=== PATIENT | female | born 1930 | race Caucasian/White ===

== ENCOUNTER → 2016-08-28 | Outpatient (CLI) | payer OTHER ==
[~2016-08-28] MED LIST: AMLO2.5T PO; ASPI81TA28 PO; ATEN-173 PO; CHOL1000 PO; CHOL100010 PO; CLOP1TAB15 PO; CRFUDL PO; DOCU100C PO; DOXY-300 PO; DSWCR TOP; DSWCR15 TOP; DXY50 PO; FERR1TAB13 PO; LEVO125T72 PO; LEVO150T PO; LEVO150T9 PO; LISI5TAB3 PO; MECL12.5 PO; METH500T3 PO; METR0.7536 TOP; METR1GEL3; MIDODRINE PO; MOML PO; MULT-506 PO; NITR0.4S UT; PANT40TA PO; POLY335019 PO; ZNTT/150 PO
--- NOTE | 2016-08-28 12:19 | DIAGNOSTIC IMAGING REPORT ---
RIGHT RIBS UNILATERAL WITH PA CHEST CLINICAL HISTORY: W19.XXXA Fall at [id number] Right trauma. Pain. COMPARISON STUDY: None FINDINGS: Cortical fracture right seventh eighth and ninth rib midaxillary line. All remaining ribs are unremarkable. No evidence pneumothorax. IMPRESSION: Nondisplaced cortical fractures right seventh eighth and ninth ribs. No evidence pneumothorax. Electronically signed by: Freddy Sherman M.D. 08/28/2016 12:17 PM Dictated Date/Time: 08/28/2016 12:16 PM
== END | disposition home or self-care (01) ==
LOC: C.RAD1850 11:44
PROVIDERS: ATTEND Physician Assistant
DX: S22.41XA Multiple fractures of ribs, right side, initial encounter for closed fracture (principal); W19.XXXA Unspecified fall, initial encounter

== ENCOUNTER 2016-08-31 13:45 | Inpatient (IN) | payer OTHER ==
[~2016-08-31] VITALS: Ht 165.1 cm; Wt 60.3 kg
[~2016-08-31 13:45] MED LIST changes: -CHOL1000 PO; -CRFUDL PO; -DOXY-300 PO; -DSWCR TOP; -FERR1TAB13 PO; -LEVO125T72 PO; -LEVO150T9 PO; -METR0.7536 TOP; -MIDODRINE PO; -MOML PO; -PANT40TA PO; -POLY335019 PO
[2016-08-31] MEDS ORDERED: SODIUM CHLORIDE 0.9% 500ML 500 ML IV STA (14:17)
[2016-08-31 14:40] LABS: BASO % 0.3 %; BASO ABS # 0.04 K/uL (0-0.2); COMPLETE YES; EOS % 1.1 %; HEMATOCRIT 27.1 % (37-47); IG% 0.4 %; LYMPH ABS # 1.41 K/uL (1.2-3.4); MEAN CELL VOLUME 84.2 fL (80-100); MEAN CORPUSCULAR HEMOGLOBIN 29.8 pg (25-34); MEAN CORPUSCULAR HGB CONC 35.4 g/dl (32-36); MEAN PLATELET VOLUME 10.2 fL (7.4-10.4); MONO % 16.7 %; NEUT % 69.5 %; PLATELET COUNT 365 K/uL (130-400); RED BLOOD COUNT 3.22 M/uL (4.2-5.4); WHITE BLOOD COUNT 11.76 K/uL (4.8-10.8)
--- NOTE | 2016-08-31 14:41 | EMERGENCY ROOM VISIT NOTE ---
History Report prepared by [place]: Ekta Webb Under the Supervision of: Dr. Adelfo Fleming M.D. First contact with patient: 14:08 Chief Complaint: GI ASSESSMENT Stated Complaint: TARRY BLACK STOOLS Nursing Triage Summary: Pt reports constipation for several days Pt had BM this morning that was black and tarry Pt c/o nausea Pt is on ASA and plavix History of Present Illness The patient is an 86 year old female who presents to the Emergency Room with complaints of persistent weakness that started six days ago. She currently rates her discomfort as an 8/10 in severity. The patient states that she fell in her bathroom six days ago from an episode of syncope. The patient does not remember losing consciousness, but her son claims she had. She went to her PCP on and they completed a chest x ray that revealed three broken ribs. Since then, the patient has fallen multiple times in the kitchen. She denies hitting her head in any falls. She states that she is on Aspirin and Plavix. The patient's son states that the patient has been taking Ibuprofen twice a day the past week. Today, the patient noted black tarry stools for the first time. She denies any history of GI bleeds in the past. The patient additionally associates shortness of breath and nausea with her symptoms today. Source of History: patient, family Onset: six days ago Position: other (global) Symptom Intensity: 8/10 Quality: other (weakness) Timing: other (persistent) Associated Symptoms: + LOC, + SOB, + nausea Note: Associated symptoms include black, tarry stools. Review of Systems See HPI for pertinent positives & negatives. A total of 10 systems reviewed and were otherwise negative. Past Medical & Surgical Medical Problems: (1) Acid reflux (2) Anemia (3) Coronary artery disease (4) Gastrointestinal bleed (5) HTN (hypertension) (6) Hypothyroidism (7) Myocardial infarction (8) Vertigo Surgical Problems: (1) Hx of CABG Family History Cancer Heart disease Social History Smoking Status: Never Smoker Alcohol Use: none Marital Status: Housing Status: lives alone Occupation Status: retired Current/Historical Medications Scheduled Aspirin (Aspirin Ec), 81 MG PO DAILY Atenolol (Tenormin), 12.5 MG PO BID Cholecalciferol (Vitamin D3), 1 TAB PO DAILY Clopidogrel (Plavix), 75 MG PO DAILY Desonide 0.05% (Desowen 0.05%), 1 APPLN TOP BID Doxycycline (Monohydrate) (Doxycycline), 1 CAP PO DAILY Levothyroxine Sodium (Synthroid), 125 MCG PO DAILY Metronidazole (Topical) (Metronidazole), 1 APPLN TOP DAILY Multivitamin (Multivitamin), 1 TAB PO DAILY Nitroglycerin (Nitrostat), 0.4 MG UT PRN Ranitidine (Zantac), 150 MG PO BID Scheduled PRN Docusate Sodium (Stool Softener), 100 MG PO BID PRN for Constipation Allergies Coded Allergies: Morphine (Verified Allergy, Mild, Itching, 08/31/16) and erythema at site of injection Penicillins (Verified Allergy, Unknown, 08/31/16) Atorvastatin (Verified Adverse Reaction, Unknown, 08/31/16) Ezetimibe (Verified Adverse Reaction, Unknown, 08/31/16) Physical Exam Vital Signs Date Time Temp Pulse Resp B/P Pulse Ox O2 Delivery O2 Flow Rate FiO2 08/31/16 16:10 75 08/31/16 15:41 73 22 162/68 98 Room Air 08/31/16 15:05 97 Room Air 08/31/16 13:48 36.9 72 20 131/66 97 Room Air Physical Exam GENERAL: Patient is a healthy-appearing well-nourished HEAD: Normocephalic atraumatic EYES: Ocular movements intact pupils equal and react to light OROPHARYNX mucous membranes are moist no exudates present no erythema or edema present NECK: Supple no nuchal rigidity CHEST: Good equal expansion LUNGS: Clear and equal to auscultation CARDIAC: Normal S1 and S2 ABDOMEN: Soft nontender no guarding BACK: No CVA tenderness RECTAL: Melena, Heme positive EXTREMITIES: No pain upon palpation normal muscle strength in all groups no clubbing cyanosis or edema NEURO: Patient is following commands is answering questions appropriately. Alert and oriented x3 Cranial Nerves 2-12 grossly intact Medical Decision & Procedures ER Provider Diagnostic Interpretation: Radiology results as stated below per my review and radiologist interpretation: CT ANGIOGRAM OF THE CHEST CLINICAL HISTORY: Atypical chest pain COMPARISON STUDY: Chest CT scan performed December 2005 TECHNIQUE: Following the IV administration of 84 mL of Optiray-320, CT angiogram of the thorax was performed from the thoracic inlet to the lung bases utilizing the pulmonary embolus protocol. Images are reviewed in the axial, sagittal, and coronal planes. IV contrast was administered without complication. MIP imaging was performed. CT DOSE: 268.93 mGy.cm FINDINGS: No pathologically enlarged axillary mediastinal or hilar lymph nodes were visualized. There was no evidence of thoracic aortic dilatation. There are coronary artery calcifications. There is a hiatal hernia with esophageal wall thickening. There were no pulmonary artery filling defects to indicate acute pulmonary embolism. There is a right pleural effusion. There are right lower lobe compressive atelectatic changes. IMPRESSION: 1. No CT evidence of acute pulmonary embolism 2. Coronary artery calcifications 3. Small right pleural effusion 4. Hiatal hernia with esophageal wall thickening Electronically signed by: Clay Rivas M.D. 08/31/2016 3:40 PM Dictated Date/Time: 08/31/2016 3:[address] HEAD WITHOUT CONTRAST (CT) CLINICAL HISTORY: Head trauma. Head pain. COMPARISON STUDY: 08/22/2014 TECHNIQUE: Axial CT of the brain is performed from the vertex to the skull base. IV contrast was not administered for this examination. CT DOSE: 614.27 mGy.cm FINDINGS: No intra or extra-axial mass lesions are visualized. There is no CT evidence of acute cortical infarction. There is no evidence of midline shift. There is no acute hemorrhage. No calvarial fractures are visualized. There are patchy white matter hypodensities likely on a small vessel basis. 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 Hypodensities within the basal ganglia inferiorly, likely represent dilated perivascular spaces although a lacunar infarct could appear similar. There is also an old lacunar infarct within the left caudate and right lentiform nucleus. There is no evidence of pathologic ventricular dilatation. There is no evidence of acute sinusitis IMPRESSION: No acute intracranial findings Electronically signed by: Clay Rivas M.D. 08/31/2016 3:36 PM Dictated Date/Time: 08/31/2016 3:33 PM Laboratory Results 08/31/16 14:29 Test 08/31/16 14:29 08/31/16 15:02 Bedside Hemoglobin 9.5 g/dl (12.0-16.0) Bedside Hematocrit 28 % (37-47) Prothrombin Time 10.9 SECONDS (9.0-12.0) Prothromb Time International Ratio 1.0 (0.9-1.1) Activated Partial Thromboplast Time 24.5 SECONDS (21.0-31.0) Partial Thromboplastin Ratio 0.9 Bedside Sodium 128 mEq/L (135-144) Bedside Potassium 5.0 mEq/L (3.3-5.0) Bedside Chloride 93 mEq/L (101-112) Bedside Total CO2 25 mEq/l (24-31) Anion Gap 16.0 mmol/L (16-25) Bedside Blood Urea Nitrogen 27 mg/dl (7-18) Bedside Creatinine 1.0 mg/dl (0.6-1.3) Est Creatinine Clear Calc Drug Dose 30.8 ml/min Estimated GFR () 47.7 Estimated GFR (Non- 41.2 BUN/Creatinine Ratio 20.1 (10-20) Bedside Glucose (other) 109 mg/dl (70-99) Calcium Level 9.0 mg/dl (8.5-10.1) Bedside Ionized Calcium (Heldaio) 1.20 mmol/l (1.12-1.32) Total Bilirubin 0.4 mg/dl (0.2-1) Direct Bilirubin < 0.1 mg/dl (0-0.2) Aspartate Amino Transf (AST/SGOT) 16 U/L (15-37) Alanine Aminotransferase (ALT/SGPT) 18 U/L (12-78) Alkaline Phosphatase 93 U/L (45-117) Total Protein 6.7 gm/dl (6.4-8.2) Albumin 2.9 gm/dl (3.4-5.0) Lipase 150 U/L (73-393) Urine Color YELLOW Urine Appearance CLEAR (CLEAR) Urine pH 7.0 (4.5-7.5) Urine Specific Malin 1.018 (1.000-1.030) Urine Protein NEG (NEG) Urine Glucose (UA) NEG (NEG) Urine Ketones NEG (NEG) Urine Occult Blood NEG (NEG) Urine Nitrite NEG (NEG) Urine Bilirubin NEG (NEG) Urine Urobilinogen NEG (NEG) Urine Leukocyte Esterase MODERATE (NEG) Urine WBC (Auto) 5-10 /hpf (0-5) Urine RBC (Auto) 0-4 /hpf (0-4) Urine Hyaline Casts (Auto) 1-5 /lpf (0-5) Urine Epithelial Cells (Auto) 20-30 /lpf (0-5) Urine Bacteria (Auto) NEG (NEG) Labs reviewed by ED physician. Medications Administered Medications (Trade) Dose Ordered Sig/[place] Route Start Time Stop Time Status Last Admin Dose Admin Sodium Chloride (Nss 500ml) 500 ml @ 999 mls/hr Q31M STAT IV 08/31/16 14:17 08/31/16 14:47 DC 08/31/16 15:20 999 MLS/HR Pantoprazole Sodium 1 ea 1 ea NOW STAT IV 08/31/16 14:44 08/31/16 14:47 DC 08/31/16 15:58 1 EA Pantoprazole Sodium 80 mg/ Dextrose 120 ml @ 480 mls/hr TODAY@1500 ONCE IV 08/31/16 15:00 08/31/16 15:14 DC 08/31/16 15:35 480 MLS/HR Pantoprazole Sodium/Dextrose (Protonix Inj/D5 100ml) 100 ml @ 20 mls/hr Q5H IV 08/31/16 15:14 09/30/16 15:13 08/31/16 20:19 20 MLS/HR Morphine Sulfate (MoRPHine SULFATE INJ) 4 mg NOW STAT IV 08/31/16 16:06 08/31/16 16:07 DC 08/31/16 16:22 4 MG Ondansetron HCl (Zofran Inj) 4 mg NOW STAT IV 08/31/16 16:06 08/31/16 16:07 DC 08/31/16 16:20 4 MG Diphenhydramine HCl 25 mg 25 mg NOW STAT IV 08/31/16 16:30 08/31/16 16:31 DC 08/31/16 16:33 25 MG Dextrose/Sodium Chloride (D5W And Nss) 1,000 ml @ 75 mls/hr [id number] IV 08/31/16 17:30 09/30/16 17:29 08/31/16 19:53 75 MLS/HR ECG Indication: weakness Rate (beats per minute): 65 Rhythm: normal sinus Findings: no acute ischemic change, no ectopy ED Course 1410: Past medical records reviewed. The patient was evaluated in room B12. A complete history and physical examination was performed. 1417: Ordered NSS 500 ml @ 999 mls/hr IV 1444: Ordered Protonix 1 ea IV 1445: Ordered Ioversol 125 ml IV-PRN 1500: Ordered Pantoprazole Sodium 80 mg/ Dextrose 120ml @ 480 mls/hr IV 1514: Ordered Pantoprazole Sodium 40 mg/ Dextrose 100 ml @ 20 mls/hr IV 1602: I reassessed the patient and she is resting comfortably. I discussed the exam findings with her and her family and I discussed the treatment plan. They verbalized complete understanding and agreement. The patient will be evaluated for further treatment. 1606: Ordered Zofran Inj 4 mg IV, Morphine Sulfate 4 mg IV. 1623: I discussed the patient's case with DARBY Pierre. She is going to evaluate the patient for further treatment. 1630: Ordered Benadryl Inj 25 mg IV. Medical Decision Differential diagnosis: Etiologies such as diverticulosis, AVM, coagulopathy, colitis, inflammatory bowel disease, malignancy, Lalitha-Nuñez tear, esophagitis, peptic ulcer disease , variceal bleed, gastritis, epistaxis, fissure, hemorrhoids, as well as others were entertained. This is an 86-year-old female who presents emergency department complaining of generalized weakness along with multiple falls at home. The patient has had black and tarry stool. She is heme positive on physical examination. Her hemoglobin has dropped from 14-9. She was typed and screen. She was started on Protonix bolus and drip. I did discuss case with the hospitalist service who agreed to admit the patient. Patient was in agreement with treatment plan. Consults Time Called: 1601 Consulting Physician: DARBY Pierre Returned Call: 1623 I discussed the patient's case with DARBY Pierre. She is going to evaluate the patient for further treatment. Impression Primary Impression: GI bleed Additional Impression: Anemia Scribe Attestation The scribe's documentation has been prepared under my direction and personally reviewed by me in its entirety. I confirm that the note above accurately reflects all work, treatment, procedures, and medical decision making performed by me. Departure Information Dispostion Being Evaluated By Hospitalist Referrals Kamlesh Mcduffie M.D. (PCP) Patient Instructions My [facility] Problem Qualifiers Primary Impression: GI bleed GI bleed type/associated pathology: unspecified gastrointestinal hemorrhage type Qualified Codes: K92.2 - Gastrointestinal hemorrhage, unspecified Additional Impression: Anemia Anemia type: unspecified type Qualified Codes: D64.9 - Anemia, unspecified
[2016-08-31 14:42] LABS: ISTAT HEMOGLOBIN 9.5 g/dl (12.0-16.0); ISTAT IONIZED CALCIUM 1.2 mmol/l (1.12-1.32)
[2016-08-31] MEDS ORDERED: OPTIRAY 320 IV PRN (14:45)
[2016-08-31] MEDS ORDERED: LEVO125T72 PO (14:50)
[2016-08-31] MEDS ORDERED: DOXY-300 PO (14:50)
[2016-08-31] MEDS ORDERED: DSWCR TOP (14:50)
[2016-08-31] MEDS ORDERED: CHOL1000 PO (14:50)
[2016-08-31] MEDS ORDERED: METR0.7536 TOP (14:50)
[2016-08-31 14:53] LABS: PARTIAL THROMBOPLASTIN RATIO 0.9; PROTHROMBIN TIME (PATIENT) 10.9 SECONDS (9.0-12.0)
[2016-08-31 14:57] LABS: ALT/SGPT 18 U/L (12-78); AST/SGOT 16 U/L (15-37); BLOOD UREA NITROGEN 24 mg/dl (7-18); BUN/CREATININE RATIO 20.1 (10-20); CARBON DIOXIDE 27 mmol/L (21-32); CHLORIDE 97 mmol/L (98-107); GLUCOSE 109 mg/dl (70-99); POTASSIUM 4.7 mmol/L (3.5-5.1); SODIUM 132 mmol/L (136-145)
[2016-08-31 14:59] LABS: ALKALINE PHOSPHATASE 93 U/L (45-117)
[2016-08-31] MEDS ORDERED: PANTOprazole INJ 80 MG in DEXTROSE 5% 100ML IV ONE (15:00)
[2016-08-31 15:14] LABS: MANUAL MICROSCOPIC REQUIRED? NO; REVIEW REQ? NO; URINE APPEARANCE CLEAR (CLEAR); URINE BILIRUBIN NEG (NEG); URINE COLOR YELLOW; URINE EPITHELIAL CELL AUTO 20-30 /lpf (0-5); URINE NITRITE NEG (NEG); URINE SPECIFIC GRAVITY 1.018 (1.000-1.030); UROBILINOGEN NEG (NEG)
--- NOTE | 2016-08-31 15:37 | DIAGNOSTIC IMAGING REPORT ---
CT HEAD WITHOUT CONTRAST (CT) CLINICAL HISTORY: Head trauma. Head pain. COMPARISON STUDY: 08/22/2014 TECHNIQUE: Axial CT of the brain is performed from the vertex to the skull base. IV contrast was not administered for this examination. CT DOSE: 614.27 mGy.cm FINDINGS: No intra or extra-axial mass lesions are visualized. There is no CT evidence of acute cortical infarction. There is no evidence of midline shift. There is no acute hemorrhage. No calvarial fractures are visualized. There are patchy white matter hypodensities likely on a small vessel basis. 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 Hypodensities within the basal ganglia inferiorly, likely represent dilated perivascular spaces although a lacunar infarct could appear similar. There is also an old lacunar infarct within the left caudate and right lentiform nucleus. There is no evidence of pathologic ventricular dilatation. There is no evidence of acute sinusitis IMPRESSION: No acute intracranial findings Electronically signed by: Clay Rivas M.D. 08/31/2016 3:36 PM Dictated Date/Time: 08/31/2016 3:33 PM
--- NOTE | 2016-08-31 15:41 | DIAGNOSTIC IMAGING REPORT ---
CT ANGIOGRAM OF THE CHEST CLINICAL HISTORY: Atypical chest pain COMPARISON STUDY: Chest CT scan performed December 2005 TECHNIQUE: Following the IV administration of 84 mL of Optiray-320, CT angiogram of the thorax was performed from the thoracic inlet to the lung bases utilizing the pulmonary embolus protocol. Images are reviewed in the axial, sagittal, and coronal planes. IV contrast was administered without complication. MIP imaging was performed. CT DOSE: 268.93 mGy.cm FINDINGS: No pathologically enlarged axillary mediastinal or hilar lymph nodes were visualized. There was no evidence of thoracic aortic dilatation. There are coronary artery calcifications. There is a hiatal hernia with esophageal wall thickening. There were no pulmonary artery filling defects to indicate acute pulmonary embolism. There is a right pleural effusion. There are right lower lobe compressive atelectatic changes. IMPRESSION: 1. No CT evidence of acute pulmonary embolism 2. Coronary artery calcifications 3. Small right pleural effusion 4. Hiatal hernia with esophageal wall thickening Electronically signed by: Clay Rivas M.D. 08/31/2016 3:40 PM Dictated Date/Time: 08/31/2016 3:36 PM
[2016-08-31] MEDS: PANTOprazole INJ 40 MG in DEXTROSE 5% 100ML IV SCH ×2 (15:57→20:19)
[2016-08-31] MEDS ORDERED: ONDANSETRON INJ 2 MG/ML 2 ML VIAL IV STA (16:06)
[2016-08-31] MEDS ORDERED: MoRPHine SULFATE 4 MG/ML 1 ML CARP\\VIAL IV STA (16:06)
[2016-08-31] MEDS ORDERED: DiphenhydrAMINE HCL 50 MG/ML VIAL IV STA (16:30)
[2016-08-31] MEDS ORDERED: NITROGLYCERIN 0.4 MG SL PER TAB CHARGE UT SCH (17:45)
[2016-08-31 18:41] LABS: BASO % 0.4 %; BASO ABS # 0.04 K/uL (0-0.2); COMPLETE YES; EOS % 2.5 %; HEMATOCRIT 26.1 % (37-47); IG% 0.5 %; LYMPH % 19.6 %; LYMPH ABS # 1.96 K/uL (1.2-3.4); MEAN CELL VOLUME 84.2 fL (80-100); MEAN CORPUSCULAR HEMOGLOBIN 29.4 pg (25-34); MEAN CORPUSCULAR HGB CONC 34.9 g/dl (32-36); MEAN PLATELET VOLUME 9.8 fL (7.4-10.4); PLATELET COUNT 309 K/uL (130-400)
[2016-08-31 19:00] VITALS: BP 187/72; PULSE 68; TEMP 37.2; O2SAT 96; Ht 165.1 cm; Wt 60.3 kg
[2016-08-31] MEDS: D5W AND NSS 1,000 ML IV SCH (19:53)
[2016-08-31] MEDS: DESONIDE CR 15 GM TUBE EXT SCH (19:54)
[2016-08-31] MEDS ORDERED: HYDROmorphone INJ 0.5 MG/0.5 ML SYR IV PRN (20:30)
--- NOTE | 2016-08-31 21:00 | History and Physical ---
History & Physical Date & Time of Service: Aug 31, 2016 at 20:11 Chief Complaint: Anemia,Gastrointestinal Bleed Primary Care Physician: Kamlesh Mcduffie M.D. History of Present Illness Source: patient, family This patient is a lauren 86-year-old female with a history of CAD status post 2 vessel CABG in 1999 followed by 2 stents to the right coronary artery in 2010, carotid artery stenosis, hypothyroidism, hypertension, paroxysmal A. 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 She reports 5 days ago, she was brushing her teeth and blacked out and woke up on the floor of her bathroom. She injured her ribs at that time and was having pain, but did not come to the hospital. She put herself into bed. Since that time, she has felt persistently nauseated and had one episode of nonbloody emesis, and persistent lightheadedness. No heart palpitations or chest pains. She went to see her PCP 2 days later and had a chest x-ray which showed fractured ribs on the right side at the site of her pain. She was advised to take ibuprofen at that time for her pain. She did not have a bowel movement all last week and has a history of constipation. Then , this morning showed a large black stool that was concerning to her and she came to the ER. She was grossly heme positive with melena on rectal exam as per ER physician. Her hemoglobin was found to be 9.6 down from baseline of 14 6 months ago. Her vital signs were stable. Because of the fall, she had a CT of the head showed old lacunar infarcts but nothing acute. And because of the right-sided rib pain , she had a CT angiogram of the chest which was negative for pulmonary embolism , but did show a small right pleural effusion with right lower lobe atelectatic changes, and esophageal thickening. Of note, the radiology report did not mention rib fractures, but the rib series from 3 days prior didn't show this. Past Medical/Surgical History Past Medical History: GERD Coronary artery disease status post 2 vessel CABG in 1999 followed by 2 stents to the right coronary artery in 2010 HTN (hypertension) Hypothyroidism Carotid artery stenosis status post right carotid endarterectomy Paroxysmal A. fib History of CVA without residual deficits Chronic constipation Rosacea History of diverticulitis Past Surgical Problems: Hx of CABG Partial colectomy with colostomy and reversal of colostomy Lumbar decompression and fusion Cataracts Total thyroidectomy Right carotid endarterectomy Family History Cancer Heart disease Noncontributory Social History Smoking Status: Never Smoker Alcohol Use: none Drug Use: none Marital Status: Housing status: lives alone Occupational Status: retired Immunizations History of Influenza Vaccine: Yes History of Tetanus Vaccine?: Yes History of Pneumococcal: Yes History of Hepatitis B Vaccine: No Multi-Drug Resistant Organisms History of MDRO: No Allergies Coded Allergies: Penicillins (Verified Allergy, Unknown, 08/31/16) Atorvastatin (Verified Adverse Reaction, Unknown, 08/31/16) Ezetimibe (Verified Adverse Reaction, Unknown, 08/31/16) Home Medications Scheduled Aspirin (Aspirin Ec), 81 MG PO DAILY Atenolol (Tenormin), 12.5 MG PO BID Cholecalciferol (Vitamin D3), 1 TAB PO DAILY Clopidogrel (Plavix), 75 MG PO DAILY Desonide 0.05% (Desowen 0.05%), 1 APPLN TOP BID Doxycycline (Monohydrate) (Doxycycline), 1 CAP PO DAILY Levothyroxine Sodium (Synthroid), 125 MCG PO DAILY Metronidazole (Topical) (Metronidazole), 1 APPLN TOP DAILY Multivitamin (Multivitamin), 1 TAB PO DAILY Nitroglycerin (Nitrostat), 0.4 MG UT PRN Ranitidine (Zantac), 150 MG PO BID Scheduled PRN Docusate Sodium (Stool Softener), 100 MG PO BID PRN for Constipation Review of Systems Constitutional: No chills, No fever Eyes: No problem reported ENT: + hearing loss, No trouble swallowing Respiratory: No cough, No shortness of breath, No sputum Cardiovascular: + chest pain (right sided at the site of rib fractures) Abdomen: + GI bleeding, + nausea, + vomiting, No pain Musculoskeletal: No problem reported Genitourinary - Female: No problem reported Neurologic: No problem reported Psychiatric: No problem reported Endocrine: No problem reported Hematologic / Lymphatic: No problem reported Integumentary: No problem reported Allergic / Immunologic: No problem reported Physical Exam Vital Signs Date Time Temp Pulse Resp B/P Pulse Ox O2 Delivery O2 Flow Rate FiO2 08/31/16 19:00 37.2 68 20 187/72 96 Room Air 08/31/16 18:20 70 21 145/72 95 Room Air 08/31/16 16:10 75 08/31/16 15:41 73 22 162/68 98 Room Air 08/31/16 15:05 97 Room Air 08/31/16 13:48 36.9 72 20 131/66 97 Room Air General Appearance: WD/WN, no apparent distress Head: normocephalic, atraumatic Eyes: normal inspection, EOMI, sclerae normal ENT: pharynx normal Neck: trachea midline Respiratory/Chest: lungs clear, normal breath sounds (except slightly decreased at the right base), no respiratory distress, no accessory muscle use Cardiovascular: regular rate, rhythm, no edema, no gallop, no murmur, normal peripheral pulses, + pertinent finding (positive exquisite tenderness to palpation over the right anterior inferior rib cage) Abdomen/GI: normal bowel sounds, non tender, soft, no organomegaly, no pulsatile mass Back: normal inspection Extremities/Musculoskelatal: normal inspection, no calf tenderness, no pedal edema, normal range of motion Neurologic/Psych: alert, normal mood/affect, oriented x 3 Skin: normal color, warm/dry, no rash Diagnostics Laboratory Results Results Past 24 Hours Test 08/31/16 14:29 08/31/16 15:02 08/31/16 18:34 Range/Units White Blood Count 11.76 10.00 4.8-10.8 K/uL Red Blood Count 3.22 3.10 4.2-5.4 M/uL Hemoglobin 9.6 9.1 12.0-16.0 g/dL Hematocrit 27.1 26.1 37-47 % Mean Corpuscular Volume 84.2 84.2 80-100 fL Mean Corpuscular Hemoglobin 29.8 29.4 25-34 pg Mean Corpuscular Hemoglobin Concent 35.4 34.9 32-36 g/dl Platelet Count 365 309 130-400 K/uL Mean Platelet Volume 10.2 9.8 7.4-10.4 fL Neutrophils (%) (Auto) 69.5 61.0 % Lymphocytes (%) (Auto) 12.0 19.6 % Monocytes (%) (Auto) 16.7 16.0 % Eosinophils (%) (Auto) 1.1 2.5 % Basophils (%) (Auto) 0.3 0.4 % Neutrophils # (Auto) 8.17 6.10 1.4-6.5 K/uL Lymphocytes # (Auto) 1.41 1.96 1.2-3.4 K/uL Monocytes # (Auto) 1.96 1.60 0.11-0.59 K/uL Eosinophils # (Auto) 0.13 0.25 0-0.5 K/uL Basophils # (Auto) 0.04 0.04 0-0.2 K/uL Bedside Hemoglobin 9.5 12.0-16.0 g/dl Bedside Hematocrit 28 37-47 % RDW Standard Deviation 46.7 47.0 36.4-46.3 fL RDW Coefficient of Variation 15.1 15.2 11.5-14.5 % Immature Granulocyte % (Auto) 0.4 0.5 % Immature Granulocyte # (Auto) 0.05 0.05 0.00-0.02 K/uL Prothrombin Time 10.9 9.0-12.0 SECONDS Prothromb Time International Ratio 1.0 0.9-1.1 Activated Partial Thromboplast Time 24.5 21.0-31.0 SECONDS Partial Thromboplastin Ratio 0.9 Bedside Sodium 128 135-144 mEq/L Sodium Level 132 136-145 mmol/L Bedside Potassium 5.0 3.3-5.0 mEq/L Potassium Level 4.7 3.5-5.1 mmol/L Bedside Chloride 93 101-112 mEq/L Chloride Level 97 98-107 mmol/L Carbon Dioxide Level 27 21-32 mmol/L Bedside Total CO2 25 24-31 mEq/l Anion Gap 16.0 16-25 mmol/L Bedside Blood Urea Nitrogen 27 7-18 mg/dl Blood Urea Nitrogen 24 7-18 mg/dl Creatinine 1.20 0.60-1.20 mg/dl Bedside Creatinine 1.0 0.6-1.3 mg/dl Est Creatinine Clear Calc Drug Dose 30.8 ml/min Estimated GFR () 47.7 Estimated GFR (Non- 41.2 BUN/Creatinine Ratio 20.1 10-20 Bedside Glucose (other) 109 70-99 mg/dl Random Glucose 109 70-99 mg/dl Calcium Level 9.0 8.5-10.1 mg/dl Bedside Ionized Calcium (Heladio) 1.20 1.12-1.32 mmol/l Total Bilirubin 0.4 0.2-1 mg/dl Direct Bilirubin < 0.1 0-0.2 mg/dl Aspartate Amino Transf (AST/SGOT) 16 15-37 U/L Alanine Aminotransferase (ALT/SGPT) 18 12-78 U/L Alkaline Phosphatase 93 45-117 U/L Total Protein 6.7 6.4-8.2 gm/dl Albumin 2.9 3.4-5.0 gm/dl Lipase 150 73-393 U/L Urine Color YELLOW Urine Appearance CLEAR CLEAR Urine pH 7.0 4.5-7.5 Urine Specific [place] 1.018 1.000-1.030 Urine Protein NEG NEG Urine Glucose (UA) NEG NEG Urine Ketones NEG NEG Urine Occult Blood NEG NEG Urine Nitrite NEG NEG Urine Bilirubin NEG NEG Urine Urobilinogen NEG NEG Urine Leukocyte Esterase MODERATE NEG Urine WBC (Auto) 5-10 0-5 /hpf Urine RBC (Auto) 0-4 0-4 /hpf Urine Hyaline Casts (Auto) 1-5 0-5 /lpf Urine Epithelial Cells (Auto) 20-30 0-5 /lpf Urine Bacteria (Auto) NEG NEG Diagnostic Radiology CT angiogram of the chest-negative for PE, positive for small right pleural effusion, positive for hiatal hernia with esophageal thickening CT of the head-old lacunar infarcts, no acute changes Normal EKG Impression Assessment and Plan This patient is a lauren 86-year-old female with a history of CAD status post 2 vessel CABG in 1999 followed by 2 stents to the right coronary artery in 2011, carotid artery stenosis, hypothyroidism, hypertension, paroxysmal A. 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 She reports an episode of syncope 5 days ago which resulted in right-sided rib fractures. Since that time, she has felt persistently nauseated and had one episode of nonbloody emesis, and persistent lightheadedness. She was grossly heme positive with melena on rectal exam as per ER physician. Her hemoglobin was found to be 9.6 down from baseline of 14 6 months ago. She had a CT angiogram of the chest which was negative for pulmonary embolism, but did show a small right pleural effusion with right lower lobe atelectatic changes, and esophageal thickening. Acute blood loss anemia, GI bleeding, history of GERD, esophageal thickening on CT chest-most likely upper GI bleed from esophagitis versus PUD versus malignancy given thickening on CT and long-standing GERD. Hemodynamically stable at this time. 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 Syncope most likely secondary to acute blood loss anemia and occurred 5 days prior to admission. ECG normal. Troponin not done at time of admission. Last echo 2012 showed mild aortic insufficiency and mild MR -Monitor on telemetry for arrhythmia -Holding aspirin and Plavix for now, we'll need to restart aspirin when safe to do so from GI perspective -Continue home dose of atenolol with hold parameters in case of low BP in the setting of GI bleeding -Check troponin -Check echo to reassess for valvular disease Right-sided fractured ribs, small pleural effusion-in pain with atelectasis and CT. Morphine in the ER made her itchy and red on the arm. -Tylenol when necessary pain, will try Dilaudid for severe pain as morphine caused a reaction -Incentive spirometer will be provided Hypothyroidism-TSH normal 3 months ago -Continue home dose of levothyroxine DVT prophylaxis-SCDs only given GI bleeding Disposition-from home and normally independent DO NOT RESUSCITATE/DO NOT INTUBATE as per discussion with patient upon admission. She has a copy of the living will at her house. Level of Care Telemetry Advanced Directives Existing Advance Directive: Yes Existing Living Will: Yes Existing Power of Tree Doctor: Yes Resuscitation Status DO NOT RESUSCITATE VTE Prophylaxis VTE Risk Assessment Done? Y/N: Yes Risk Level: Low Additional Copies To Kamlesh Mcduffie M.D.
--- NOTE | 2016-08-31 22:13 | GASTROINTESTINAL CONSULTATION ---
DATE OF CONSULTATION: 08/31/2016 REASON FOR EVALUATION: Melena and anemia. HISTORY OF PRESENT ILLNESS: The patient is an 86-year-old female, who fell six days ago and fractured 3 ribs on the right. She has been on aspirin and Plavix following coronary artery bypass graft in the past and since she broke her rib she has been taking ibuprofen and presented today with a syncopal episode. In the ER, she was noted to have melenic stool which was Hemoccult positive and she was slightly anemic with a hemoglobin in the 9 range. She has had no significant abdominal pain, no nausea or vomiting. No prior history of ulcer disease. She was taking Zantac at home. PAST MEDICAL HISTORY: Remarkable for coronary artery disease status post bypass. She has had partial bowel resection for bowel perforation in the past. She has hypertension, hypothyroidism and history of vertigo. MEDICATIONS: Baby aspirin, Plavix, atenolol, vitamin D, doxycycline, Synthroid, metronidazole, multiple vitamins, Nitrostat and Zantac. ALLERGIES: PENICILLIN, ATORVASTATIN AND EZETIMIBE. FAMILY HISTORY: Positive for cancer and heart disease. SOCIAL HISTORY: The patient is , lives alone. She has a son in the area. She is retired. She does not smoke. REVIEW OF SYSTEMS: Positive for some right rib pain. PHYSICAL EXAMINATION: GENERAL: The patient is lying in bed, in no acute distress. VITAL SIGNS: Blood pressure is 162/68, pulse 73 and room air oxygen saturation is 98%. LUNGS: Clear. HEART: Showed a sternotomy scar with normal S1 and S2, regular rate and rhythm. ABDOMEN: Showed a low midline scar. There are no masses, tenderness or hepatosplenomegaly. RECTAL: Exam performed by the ER doctor showed melena which was heme-positive. LABORATORY: Shows hemoglobin of 9.6, hematocrit 27, white count is 11.76 and platelets 365,000. CT of the head is negative. CT of the chest shows small right pleural effusion, coronary artery calcification and hiatal hernia. IMPRESSION: The patient has melena and anemia; on aspirin, Plavix and ibuprofen. She likely has gastritis or an ulcer. At this point, I would hold the aspirin, ibuprofen and keep her on IV Protonix. We will set her up for an EGD tomorrow for further evaluation.
[2016-09-01] VITALS (8 sets, daily range): BP systolic 124–193; BP diastolic 56–78; PULSE 61–68; TEMP 36.4–37; O2SAT 92–96
[2016-09-01 00:07] LABS: HEMATOCRIT 29.1 % (37-47); MEAN CELL VOLUME 87.4 fL (80-100); MEAN CORPUSCULAR HEMOGLOBIN 29.4 pg (25-34); MEAN CORPUSCULAR HGB CONC 33.7 g/dl (32-36); MEAN PLATELET VOLUME 10.1 fL (7.4-10.4); PLATELET COUNT 341 K/uL (130-400); RED BLOOD COUNT 3.33 M/uL (4.2-5.4); WHITE BLOOD COUNT 9.73 K/uL (4.8-10.8)
[2016-09-01] MEDS ORDERED: HydrALAZINE HCL 20 MG/ML VIAL IV. PRN (00:45)
[2016-09-01] MEDS: PANTOprazole INJ 40 MG in DEXTROSE 5% 100ML IV SCH ×5 (01:06→21:51)
[2016-09-01] MEDS: ACETAMINOPHEN 325 MG TAB PO PRN ×3 (01:33→20:28)
[2016-09-01 04:03] LABS: HEMATOCRIT 27.3 % (37-47); MEAN CORPUSCULAR HEMOGLOBIN 29.6 pg (25-34); MEAN CORPUSCULAR HGB CONC 34.8 g/dl (32-36); MEAN PLATELET VOLUME 10.1 fL (7.4-10.4); PLATELET COUNT 335 K/uL (130-400); RED BLOOD COUNT 3.21 M/uL (4.2-5.4)
[2016-09-01 04:29] LABS: BUN/CREATININE RATIO 14.1 (10-20); CALCIUM 8.5 mg/dl (8.5-10.1); CREATININE 0.99 mg/dl (0.60-1.20); MAGNESIUM 2.2 mg/dl (1.8-2.4); POTASSIUM 4.2 mmol/L (3.5-5.1)
[2016-09-01] MEDS: LEVOTHYROXINE 125 MCG TAB PO SCH (05:49)
[2016-09-01] MEDS: D5W AND NSS 1,000 ML IV SCH (05:51)
[2016-09-01 08:56] LABS: HEMATOCRIT 30.8 % (37-47); MEAN CELL VOLUME 86.5 fL (80-100); MEAN CORPUSCULAR HEMOGLOBIN 29.2 pg (25-34); MEAN CORPUSCULAR HGB CONC 33.8 g/dl (32-36); MEAN PLATELET VOLUME 10.5 fL (7.4-10.4); PLATELET COUNT 361 K/uL (130-400); RED BLOOD COUNT 3.56 M/uL (4.2-5.4); WHITE BLOOD COUNT 12.69 K/uL (4.8-10.8)
[2016-09-01] MEDS: DESONIDE CR 15 GM TUBE EXT SCH ×2 (09:23→20:27)
--- NOTE | 2016-09-01 11:22 | ECHOCARDIOGRAM REPORT ---
*NOTICE TO RECEIVING LIBERTARIAN AGENCY This information is strictly Confidential and protected under [place] law. [place] law prohibits you from making any further disclosure of this information unless further disclosure is expressly permitted by the written consent of the person to whom it pertains or is authorized by law. A general authorization for the release of medical or other information is not sufficient for this purpose. Hospital accepts no responsibility if the information is made available to any other person, INCLUDING THE PATIENT. Interpretation Summary * Name: JESSICA HAZEL Study Date: 09/01/2016 06:46 AM BP: 185/64 mmHg * Patient Location: C.2T\S\S239\S\1 HR: 60 * : 1930 (M/d/yyy) Gender: Female Height: 65 in * Age: 86 yrs Ethnicity: CA Weight: 129 lb * Ordering Physician: Za Dutton * Referring Physician: Self, Referred * Performed By: Pete Melgar RCS * * Reason For Study: Syncope * BSA: 1.6 m2 * -- Conclusions -- * Left ventricular systolic function is normal. * No regional wall motion abnormalities noted. * Ejection Fraction = 65-70%. * There is borderline concentric left ventricular hypertrophy. * Diastolic dysfunction, Grade II (pseudonormalization pattern). * There is mild mitral regurgitation. * There is mild tricuspid regurgitation. * Mild pulmonic valvular regurgitation. Procedure Details * A complete two-dimensional transthoracic echocardiogram was performed (2D, M-mode, Doppler and color flow Doppler). Left Ventricle * The left ventricle is normal in size. * There is borderline concentric left ventricular hypertrophy. * Ejection Fraction = 65-70%. * Left ventricular systolic function is normal. * No regional wall motion abnormalities noted. Right Ventricle * The right ventricle is normal size. * The right ventricular systolic function is normal as assessed by tricuspid annular plane systolic excursion (TAPSE) (normal >1.5 cm). Atria * The left atrium is mildly dilated. * The right atrium is mildly dilated. * There is no evidence of atrial septal defect, but resolution does not allow assessment for a patent foramen ovale. Mitral Valve * The mitral valve anatomy is normal. * There is no mitral valve stenosis. * There is mild mitral regurgitation. Tricuspid Valve * The tricuspid valve anatomy is normal. * There is no tricuspid stenosis. * There is mild tricuspid regurgitation. Aortic Valve * The aortic valve is trileaflet. * Aortic valve sclerosis moderate, without significant aortic valvular stenosis. * Trace aortic regurgitation. Pulmonic Valve * The pulmonary valve is not well seen, but the Doppler examination is normal without significant regurgitation or stenosis. * Mild pulmonic valvular regurgitation. Great Vessels * The aortic root is normal size. Pericardium/Pleural * There is no pericardial effusion. Left Ventricular Diastolic Function * Diastolic dysfunction, Grade II (pseudonormalization pattern). MMode 2D Measurements and Calculations IVSd 0.98 cm IVSs 1.3 cm LVIDd 4.4 cm LVIDs 2.9 cm LVPWd 10 cm LVPWs 1.3 cm IVS/LVPW 0.98 FS 34.3 % EDV(Teich) 88.6 ml ESV(Teich) 32.3 ml EF(Teich) 63.6 % EDV(cubed) 86.3 ml ESV(cubed) 24.4 ml EF(cubed) 71.7 % % IVS thick 35.7 % % LVPW thick 29.2 % LV mass(C)d 146.3 grams LV mass(C)dI 89.1 grams/m\S\2 LV mass(C)s 120.1 grams LV mass(C)sI 73.1 grams/m\S\2 CO(Teich) 3.4 l/min CI(Teich) 2.1 l/min/m\S\2 SV(Teich) 56.3 ml SI(Teich) 34.3 ml/m\S\2 CO(cubed) 3.7 l/min CI(cubed) 2.3 l/min/m\S\2 SV(cubed) 61.8 ml SI(cubed) 37.7 ml/m\S\2 Ao root diam 3.2 cm Ao root area 7.9 cm\S\2 ACS 1.6 cm LA dimension 4.9 cm LA/Ao 1.5 LVAd ap4 28.0 cm\S\2 LVLd ap4 7.9 cm EDV(MOD-sp4) 81.0 ml LVAs ap4 13.6 cm\S\2 LVLs ap4 6.8 cm ESV(MOD-sp4) 23.0 ml EF(MOD-sp4) 71.6 % LVAd ap2 27.7 cm\S\2 LVLd ap2 7.7 cm EDV(MOD-sp2) 82.0 ml LVAs ap2 12.4 cm\S\2 LVLs ap2 6.6 cm ESV(MOD-sp2) 20.0 ml EF(MOD-sp2) 75.6 % CO(MOD-sp4) 3.5 l/min CI(MOD-sp4) 2.1 l/min/m\S\2 SV(MOD-sp4) 58.0 ml SI(MOD-sp4) 35.3 ml/m\S\2 CO(MOD-sp2) 3.7 l/min CI(MOD-sp2) 2.3 l/min/m\S\2 SV(MOD-sp2) 62.0 ml SI(MOD-sp2) 37.8 ml/m\S\2 Doppler Measurements and Calculations MV E max darin 83.3 cm/sec MV A max darin 74.4 cm/sec MV E/A 1.1 MV P1/2t max darin 97.7 cm/sec MV P1/2t 84.7 msec MVA(P1/2t) 2.6 cm\S\2 MV dec slope 338.1 cm/sec\S\2 MV dec time 0.26 sec Ao V2 max 129.6 cm/sec Ao max PG 6.7 mmHg Ao max PG (full) 2.8 mmHg AI max darin 394.4 cm/sec AI max PG 62.2 mmHg AI dec slope 254.1 cm/sec\S\2 AI P1/2t 454.6 msec LV V1 max PG 3.9 mmHg LV V1 max 99.2 cm/sec PA V2 max 82.0 cm/sec PA max PG 2.7 mmHg PI max darin 213.4 cm/sec PI max PG 18.2 mmHg PI dec slope 184.9 cm/sec\S\2 PI P1/2t 338.0 msec TR max darin 220.4 cm/sec
[2016-09-01 12:50] LABS: MEAN CELL VOLUME 85.1 fL (80-100); MEAN CORPUSCULAR HEMOGLOBIN 29.5 pg (25-34); MEAN CORPUSCULAR HGB CONC 34.6 g/dl (32-36); MEAN PLATELET VOLUME 10.2 fL (7.4-10.4); PLATELET COUNT 344 K/uL (130-400); RED BLOOD COUNT 3.29 M/uL (4.2-5.4); WHITE BLOOD COUNT 11.28 K/uL (4.8-10.8)
--- NOTE | 2016-09-01 14:24 | Endo History and Physical ---
History & Physical Date of Service: Sep 01, 2016. Chief Complaint: Melena Referring Physician: Dr Mcduffie History of Present Illness For EGD Past Surgical History Hx Cardiac Surgery: Yes (CABG) Hx Abdominal Surgery: No Hx Post-Op Nausea and Vomiting: No Hx Cancer Surgery: No Hx Thoracic Surgery: No Hx Orthopedic: Yes (spinal fusion) Hx Urinary Tract Surgery: No Social History Smoking Status: Never Smoker Hx Substance Use: No Hx Alcohol Use: No Allergies Coded Allergies: Morphine (Verified Allergy, Mild, Itching, 08/31/16) and erythema at site of injection Penicillins (Verified Allergy, Unknown, 08/31/16) Atorvastatin (Verified Adverse Reaction, Unknown, 08/31/16) Ezetimibe (Verified Adverse Reaction, Unknown, 08/31/16) Current Medications Reported Home Medications Medications Dose Route/Sig Max Daily Dose Days Date Category Metronidazole (Metronidazole (Topical)) 1 % Gel 1 Appln TOP DAILY 08/31/16 Reported Desowen 0.05% (Desonide) 60 Gm Cr 1 Appln TOP BID 14 08/31/16 Reported Doxycycline (Doxycycline (Monohydrate)) 100 Mg Cap 1 Cap PO DAILY 08/31/16 Reported Vitamin D3 (Cholecalciferol) 1,000 Unit Tab 1 Tab PO DAILY 30 08/31/16 Reported Synthroid (Levothyroxine Sodium) 125 Mcg Tab 125 Mcg PO DAILY 08/31/16 Reported Tenormin (Atenolol) 25 Mg Tab 12.5 Mg PO BID 06/03/13 Reported Zantac (Ranitidine HCl) 150 Mg Tab 150 Mg PO BID 04/29/13 Reported Stool Softener (Docusate Sodium) 100 Mg Cap 100 Mg PO BID PRN 04/29/13 Reported Nitrostat (Nitroglycerin) 0.4 Mg Sub 0.4 Mg UT PRN 04/29/13 Reported Aspirin Ec (Aspirin) 81 Mg Tab 81 Mg PO DAILY 04/29/13 Reported Multivitamin (Multivitamins) Tab 1 Tab PO DAILY 08/21/08 Reported Plavix (Clopidogrel Bisulfate) 75 Mg Tab 75 Mg PO DAILY 08/21/08 Reported Vital Signs Weight (Kilograms): 60.200 Height (Feet): 5 Height (Inches): 5.00 Date Time Temp Pulse Resp B/P Pulse Ox O2 Delivery O2 Flow Rate FiO2 09/01/16 13:28 36.6 63 20 151/61 95 Room Air 09/01/16 12:00 Room Air 09/01/16 11:52 36.4 62 16 153/64 95 Room Air 09/01/16 08:00 Room Air 09/01/16 07:48 36.4 61 18 124/64 96 Room Air 09/01/16 04:02 37.0 68 18 185/64 94 09/01/16 04:00 Room Air 09/01/16 00:11 36.5 65 22 191/73 94 193/78 08/31/16 23:59 Room Air 08/31/16 20:00 Room Air 08/31/16 19:00 37.2 68 20 187/72 96 Room Air 08/31/16 18:20 70 21 145/72 95 Room Air 08/31/16 16:10 75 08/31/16 15:41 73 22 162/68 98 Room Air 08/31/16 15:05 97 Room Air Physical Exam General Appearance: + thin Respiratory/Chest: Respiratory effort: no dyspnea Cardiovascular: Heart Auscultation: RRR Abdomen: Inspection & Palpation: soft Assessment and Plan Melena for EGD
--- NOTE | 2016-09-01 14:40 | Discharge Instructions ---
Endoscopy Patient Instructions Date / Procedure(s) Performed Sep 01, 2016. EGD Allergy Information Coded Allergies: Morphine (Verified Allergy, Mild, Itching, 08/31/16) and erythema at site of injection Penicillins (Verified Allergy, Unknown, 08/31/16) Atorvastatin (Verified Adverse Reaction, Unknown, 08/31/16) Ezetimibe (Verified Adverse Reaction, Unknown, 08/31/16) Discharge Date / Findings Sep 01, 2016. Esophagitis, Hiatal hernia Medication Instructions Restart Stopped Medication(s): resume meds Begin carafate susp 1 gm po bid Provider Instructions Activity Restrictions - No exercising or heavy lifting for 24 hours. - Do not drink alcohol the day of the procedure. - Do not drive a car or operate machinery until the day after the procedure. - Do not make any important decisions or sign important papers in 24 hours after the procedure. Following Day: - Return to full activity which may include returning to work/school. Diet Start your diet with liquids and light foods (jello, soup, juice, toast). Then eat your usual diet if not nauseated. Treatment For Common After Affects For mild abdominal pain, bloating, or excessive gas: - Rest - Eat lightly - Lie on right side Follow-Up Information Follow-up with as scheduled Anesthesia Information What You Should Know You have had a procedure that required some medicine to reduce anxiety and discomfort. This treatment is called moderate sedation. After receiving the treatment, you may be sleepy, but you will be able to breathe on your own. The effects of the treatment may last for several hours. Follow these instructions along with Activity/Diet recommendations noted above: * Do NOT do anything where dizziness or clumsiness would be dangerous. * Rest quietly at home today, then you can be up and about tomorrow. * Have a responsible person stay with you the rest of today. * You may have had an I.V. today. If so, you may take the dressing off later today. Recommendations Call your doctor if: * Trouble breathing * Continuous vomiting for more than 24 hours * Temperature above 101 degrees * Severe abdominal pain or bloating * Pain not relieved by pain medicine ordered * There is increased drainage or redness from any incision * A large amount of rectal bleeding greater than 2-3 tablespoons. (If you had a polyp/s removed or have hemorrhoids, a small amount of blood - from the rectum is to be expected.) * You have any unanswered questions or concerns. IN THE EVENT OF A SERIOUS EMERGENCY, GO TO THE NEAREST EMERGENCY ROOM Your discharge instructions were prepared by provider José Treadwell. Patient Instructions Signature Page Kay Celestin Patient (or Guardian) Signature/Date: I have read and understand the instructions given to me by my caregivers. Caregiver/RN/Doctor Signature/Date: The above-named patient and/or guardian has received patient instructions on this date. + Original Patient Signature Page (only) stays with chart. Please make copy for patient.
--- NOTE | 2016-09-01 14:43 | GI REPORT ---
Procedure Date: 09/01/2016 2:14 PM Procedure: Upper GI endoscopy Indications: Acute post hemorrhagic anemia, Melena Medicines: Propofol total dose 80 mg IV, Lidocaine 80 mg IV Complications: No immediate complications. Estimated Blood Loss: Estimated blood loss: none. Procedure: Pre-Anesthesia Assessment: - Prior to the procedure, a History and Physical was performed, and patient medications, allergies and sensitivities were reviewed. The patient's tolerance of previous anesthesia was reviewed. - The risks and benefits of the procedure and the sedation options and risks were discussed with the patient. All questions were answered and informed consent was obtained. After obtaining informed consent, the endoscope was passed under direct vision. Throughout the procedure, the patient's blood pressure, pulse, and oxygen saturations were monitored continuously. The scope was introduced through the mouth, and advanced to the second part of duodenum. The upper GI endoscopy was accomplished without difficulty. The patient tolerated the procedure well. Findings: LA Grade D (one or more mucosal breaks involving at least 75% of esophageal circumference) esophagitis with no bleeding was found. A medium-sized hiatus hernia was present. The entire examined stomach was normal. The examined duodenum was normal. Impression: - LA Grade D reflux esophagitis. - Medium-sized hiatus hernia. - Normal stomach. - Normal examined duodenum. - No specimens collected. Recommendation: - [facility]. - Use sucralfate suspension 1 gram PO BID daily. José Treadwell M.D. José Treadwell MD 09/01/2016 2:44:09 PM This report has been signed electronically. Note Initiated On: 09/01/2016 2:14 PM I attest to the content of the Intraoperative Record and orders documented therein, exceptions below
[2016-09-01] MEDS ORDERED: PROPOFOL IV EMULSION 10 MG/ML 20 ML VIAL IV ONE (14:56)
[2016-09-01] MEDS ORDERED: LIDOCAINE HCL 2% 2 ML VIAL (20MG/ML) ONE (14:56)
--- NOTE | 2016-09-01 14:58 | Anesthesiology Progress Note ---
Anesthesia Post Op Note Date & Time Sep 01, 2016 at 14:58 Vital Signs Pain Intensity: 0.0 Vital Signs Past 12 Hours Date Time Temp Pulse Resp B/P Pulse Ox O2 Delivery O2 Flow Rate FiO2 09/01/16 14:45 68 16 151/61 100 Mask 3 09/01/16 13:28 36.6 63 20 151/61 95 Room Air 09/01/16 12:00 Room Air 09/01/16 11:52 36.4 62 16 153/64 95 Room Air 09/01/16 08:00 Room Air 09/01/16 07:48 36.4 61 18 124/64 96 Room Air 09/01/16 04:02 37.0 68 18 185/64 94 09/01/16 04:00 Room Air Notes Mental Status: alert / awake / arousable, participated in evaluation Pt Amnestic to Procedure: Yes Nausea / Vomiting: adequately controlled Pain: adequately controlled Airway Patency, RR, SpO2: stable & adequate BP & HR: stable & adequate Hydration State: stable & adequate Anesthetic Complications: no major complications apparent Pt doing well.
--- NOTE | 2016-09-01 15:05 | PROGRESS NOTE ---
DATE: 09/01/2016 SUBJECTIVE: The patient underwent an EGD today and was found to have severe distal esophagitis with a small to medium sized hiatal hernia. The stomach and duodenum were normal. There was no stigmata of bleeding. LABORATORY DATA: Shows a white count 11.28; hemoglobin 9.7, which is stable; platelets are 344,000. She reports no bowel movements today. IMPRESSION AND PLAN: The patient has severe esophagitis as a most likely cause for her melena. This is no doubt initiated by her aspirin and ibuprofen and potentiated by her Plavix. Plan on adding to her Protonix, Carafate suspension 1 gram twice a day. We will start her on a solid food, low fiber diet today.
[2016-09-01] MEDS: SUCRALFATE 1 GM/10 ML UDC PO SCH (17:01)
[2016-09-02] MEDS: D5W AND NSS 1,000 ML IV SCH (02:23)
[2016-09-02] MEDS: PANTOprazole INJ 40 MG in DEXTROSE 5% 100ML IV SCH ×3 (02:23→13:11)
[2016-09-02] MEDS: ACETAMINOPHEN 325 MG TAB PO PRN ×3 (03:15→14:13)
[2016-09-02 03:25] VITALS: BP 167/64; PULSE 60; TEMP 37; O2SAT 93
[2016-09-02] MEDS: SUCRALFATE 1 GM/10 ML UDC PO SCH (05:58)
[2016-09-02] MEDS: LEVOTHYROXINE 125 MCG TAB PO SCH (05:58)
[2016-09-02] MEDS: DESONIDE CR 15 GM TUBE EXT SCH (07:54)
[2016-09-02 08:15] VITALS: BP 161/66; PULSE 55; TEMP 36.5; O2SAT 93
[2016-09-02 11:48] VITALS: BP 139/64; PULSE 62; TEMP 36.8; O2SAT 95
[2016-09-02] MEDS ORDERED: CRFUDL PO (14:21)
[2016-09-02 14:23] VITALS: BP 139/64; PULSE 62; TEMP 36.8; O2SAT 95
--- NOTE | 2016-09-02 14:26 | Discharge Instructions ---
Discharge Instructions Date of Service Sep 02, 2016. Admission Reason for Admission: Anemia,Gastrointestinal Bleed Discharge Discharge Diagnosis / Problem: esophagitis Discharge Goals Goal(s): Decrease discomfort, Improve function, Increase independence, Improve disease control, Improve nutritional status, Learn about illness, Diagnostic testing, Therapeutic intervention, Prevent Disease Progression, Specific goals Activity Recommendations Activity Limitations: resume your previous activity . Instructions / Follow-Up Instructions / Follow-Up you have Esophagitis, Hiatal hernia you need to continue Carafate susp 1 gm po bid, Protonix 40mg po daily, follow up with Dr. Treadwell as instructed you have Acute blood loss anemia, GI bleeding, history of GERD, Syncope, CAD s/p CABG and 2 stents to the right coronary artery,ELIZABETH s/p R endarterectomy, I wound Holding aspirin and Plavix for now, we'll need to restart when safe to do so from GI perspective, or from your family physician - you need to follow up with your primary care physician in 1 week, - take medication as instructed, never overdose or any misuse, or take with alcohol, because misuse of medicine may cause organ damage or , call your primary care physician if have questions of medicaitons. - call your primary care physician OR go to local emergency room if has any fever/chill, chest pain, shortness of breathing, nausea/vomiting/abdominal pain , facial droop/slurry speech/local weakness, or if has any questions. - fall precaution - diet as instructed - you need to follow up with your subspecialist - you should understand that it is important to follow up the above instruction , and "not following the above instruction" may cause delayed or missed care of your medical conditions which may cause permanent organ damage and even . Current Hospital Diet Patient's current hospital diet: Low Fiber Diet Discharge Diet Recommended Diet: AHA Diet (Heart Healthy), Low Fiber Diet Procedures Procedures Performed: egd Pending Studies Studies pending at discharge: no Medical Emergencies . Who to Call and When: Medical Emergencies: If at any time you feel your situation is an emergency, please call 911 immediately. . Non-Emergent Contact Non-Emergency issues call your: Primary Care Provider, Stucco Mason . . "Provider Documentation" section prepared by Shawn Walters. VTE Core Measure Inpt VTE Proph given/why not?: SCD's
[2016-09-02] MEDS ORDERED: PANT40TA PO (14:46)
--- NOTE | 2016-09-02 17:00 | Progress Note ---
Subjective Date of Service: Sep 01, 2016. Subjective Pt evaluation today including: conversation w/ patient, conversation w/ family , physical exam, review of studies, conversation w/ business analysis consultant, review of inpatient medication list Feeling okay no complaining, Problem List Medical Problems: (1) Anemia Status: Acute (2) GI bleed Status: Acute Review of Systems Constitutional: + fatigue, + weakness, No chills, No fever, No problem reported , No sweats, No weight loss Eyes: No diplopia, No discharge, No eye pain, No redness, No worsening of vision ENT: No dental problems, No hearing loss, No nasal symptoms, No sore throat, No tinnitus, No trouble swallowing, No unusual epistaxis Respiratory: No cough, No dyspnea at rest, No dyspnea on exertion, No hemoptysis, No shortness of breath, No sputum, No wheezing Cardiac: No PND, No chest pain, No claudication, No edema, No orthopnea, No palpitations Abdomen: No constipation, No diarrhea, No nausea, No pain, No vomiting Musculoskeletal: No calf pain, No joint pain, No muscle pain, No swelling Female : No abnormal vaginal bleeding, No dysuria, No hematuria, No incontinence, No urinary frequency, No vaginal discharge Neurologic: No balance problems, No memory loss, No numbness/tingling, No paralysis, No vertigo, No weakness Psychiatric: No anhedonism, No anxiety, No depression symptoms, No insomnia, No substance abuse Heme: No abnormal bleeding/bruising, No clotting problems, No night sweats, No swollen lymph nodes Endo: No excessive thirst, No excessive urination, No fatigue Skin: No bleeding, No color change, No itch, No new/changing skin lesions, No rash Objective Vital Signs Date Time Temp Pulse Resp B/P Pulse Ox O2 Delivery O2 Flow Rate FiO2 09/02/16 14:23 36.8 62 18 95 Room Air 09/02/16 12:00 Room Air 09/02/16 11:48 36.8 62 18 139/64 95 Room Air 09/02/16 08:15 36.5 55 18 161/66 93 Room Air 09/02/16 08:00 Room Air 09/02/16 04:05 Room Air 09/02/16 03:25 37.0 60 17 167/64 93 Room Air 09/02/16 00:02 Room Air 09/01/16 23:55 36.7 66 17 144/65 92 Room Air 09/01/16 20:12 36.6 62 18 149/56 94 Room Air 09/01/16 20:00 Room Air Physical Exam General Appearance: WD/WN, no apparent distress Eyes: normal inspection, PERRL, EOMI, sclerae normal ENT: normal ENT inspection, hearing grossly normal, pharynx normal Neck: supple, no adenopathy, thyroid normal, no JVD, no carotid bruits, trachea midline Respiratory/Chest: chest non-tender, lungs clear, normal breath sounds, no respiratory distress, no accessory muscle use Cardiovascular: regular rate, rhythm, no edema, no gallop, no JVD, no murmur Abdomen: normal bowel sounds, non tender, soft, no organomegaly, no pulsatile mass Extremities: normal range of motion, non-tender, normal inspection, no pedal edema, no calf tenderness, normal capillary refill, pelvis stable Neurologic/Psychiatric: crossing tender II-XII nml as tested, no motor/sensory deficits, alert, normal mood/affect, oriented x 3 Skin: normal color, warm/dry, no rash Lymphatic: no adenopathy Assessment and Plan 86-year-old female make it on 08/31/2016 with an episode of melena that occurred in the morning of admission Per medical record , she reports an episode of syncope 5 days ago which resulted in right-sided rib fractures. Since that time, she has felt persistently nauseated and had one episode of nonbloody emesis, and persistent lightheadedness. She was grossly heme positive with melena on rectal exam as per ER physician. Her hemoglobin was found to be 9.6 down from baseline of 14 6 months ago. She had a CT angiogram of the chest which was negative for pulmonary embolism, but did show a small right pleural effusion with right lower lobe atelectatic changes, and esophageal thickening. Acute blood loss anemia, GI bleeding, history of GERD, esophageal thickening on CT chest-most likely upper GI bleed from esophagitis versus PUD versus malignancy given thickening on CT and long-standing GERD. -GI consulted plan perform EGD tomorrow -Keep nothing by mouth -Protonix drip -Follow serial CBCs and transfuse for hemoglobin less than 7-8 -Hold Plavix and aspirin indefinitely Syncope, with hx of CAD s/p CABG and 2 stents to the right coronary artery,ELIZABETH s/p R endarterectomy, HTN, PAF, history of CVA without residual deficits-all stable at this time. Syncope most likely secondary to acute blood loss anemia and occurred 5 days prior to admission. Right-sided fractured ribs, small pleural effusion-in pain with atelectasis and CT. Morphine in the ER made her itchy and red on the arm. Continue Tylenol when necessary pain, will try Dilaudid for severe pain as morphine caused a reaction Until new Incentive spirometer will be provided Hypothyroidism-TSH normal 3 months ago -Continue home dose of levothyroxine DVT prophylaxis-SCDs only given GI bleeding DNR Continued [facility] stay due to: multiple IV medications needed Discharge planning: home
--- NOTE | 2016-09-02 17:08 | Discharge Summary ---
Discharge Summary Date of Service Sep 02, 2016. Discharge Summary Admission Date: Aug 31, 2016 at 17:42 Discharge Date: Sep 02, 2016 Discharge Disposition: Home Principal Diagnosis: Esophagitis, Hiatal hernia Immunizations: Have You Had Influenza Vaccine: Yes History of Tetanus Vaccine?: Yes History of Pneumococcal: Yes History of Hepatitis B Vaccine: No Procedures: egd Consultations: GI doctor Dr. Treadwell Medication Reconciliation New Medications: Pantoprazole (Protonix) 40 Mg Tab 40 MG PO DAILY, #30 Sucralfate (Sucralfate) 1 Gm/10 Ml Susp 1 GM PO BID@0700,1615 for 14 Days Continued Medications: Atenolol (Tenormin) 25 Mg Tab 12.5 MG PO BID, TAB Cholecalciferol (Vitamin D3) 1,000 Unit Tab 1 TAB PO DAILY for 30 Days, #30 TAB 5 Refills Desonide 0.05% (Desowen 0.05%) 60 Gm Cr 1 APPLN TOP BID for 14 Days, #60 GM Docusate Sodium (Stool Softener) 100 Mg Cap 100 MG PO BID PRN for Constipation Doxycycline (Monohydrate) (Doxycycline) 100 Mg Cap 1 CAP PO DAILY Levothyroxine Sodium (Synthroid) 125 Mcg Tab 125 MCG PO DAILY, TAB Metronidazole (Topical) (Metronidazole) 1 % Gel 1 APPLN TOP DAILY, #60 Multivitamin (Multivitamin) Tab 1 TAB PO DAILY Nitroglycerin (Nitrostat) 0.4 Mg Sub 0.4 MG UT PRN, BTL Discontinued Medications: Aspirin (Aspirin Ec) 81 Mg Tab 81 MG PO DAILY Clopidogrel (Plavix) 75 Mg Tab 75 MG PO DAILY Ranitidine (Zantac) 150 Mg Tab 150 MG PO BID, TAB Discharge Exam Doing well, tolerate diet, up and walk, no complaint Review of Systems: Constitutional: No chills, No fatigue, No fever, No problem reported, No sweats, No weakness, No weight loss Eyes: No diplopia, No discharge, No eye pain, No problem reported, No redness, No worsening of vision ENT: No dental problems, No hearing loss, No nasal symptoms, No problem reported, No sore throat, No tinnitus, No trouble swallowing, No unusual epistaxis Respiratory: No cough, No dyspnea at rest, No dyspnea on exertion, No hemoptysis, No problem reported, No shortness of breath, No sputum, No wheezing Cardiovascular: No PND, No chest pain, No claudication, No edema, No orthopnea, No palpitations, No problem reported Abdomen: No GI bleeding, No constipation, No diarrhea, No nausea, No pain, No problem reported, No vomiting Genitourinary - Female: No dysmenorrhea, No dysuria, No hematuria, No menorrhagia, No metrorrhagia, No , No problem reported, No rash, No urinary frequency, No urinary incontinence, No urinary retention, No urinary urgency, No vaginal bleeding, No vaginal discharge, No vaginal itching, No vulvodynia Neurologic: No balance problems, No memory loss, No numbness/tingling, No paralysis, No problem reported, No vertigo, No weakness Psychiatric: No anhedonism, No anxiety, No depression symptoms, No insomnia , No problem reported, No substance abuse Endocrine: No excessive thirst, No excessive urination, No fatigue, No problem reported Hematologic / Lymphatic: No abnormal bleeding/bruising, No clotting problems , No night sweats, No problem reported, No swollen lymph nodes Integumentary: No bleeding, No color change, No itch, No new/changing skin lesions, No problem reported, No rash Physical Exam: General Appearance: WD/WN, no apparent distress Eyes: normal inspection, PERRL ENT: normal ENT inspection, hearing grossly normal Neck: supple, no adenopathy Respiratory/Chest: chest non-tender, no respiratory distress, no accessory muscle use, + decreased breath sounds Cardiovascular: regular rate, rhythm, no edema, no gallop, no JVD Abdomen / GI: normal bowel sounds, non tender, soft, no organomegaly, no pulsatile mass Extremities: normal inspection, no calf tenderness, normal capillary refill 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 Since that time, she has felt persistently nauseated and had one episode of nonbloody emesis, and persistent lightheadedness. She was grossly heme positive with melena on rectal exam as per ER physician. Her hemoglobin was found to be 9.6 down from baseline of 14 6 months ago. She had a CT angiogram of the chest which was negative for pulmonary embolism, but did show a small right pleural effusion with right lower lobe atelectatic changes, and esophageal thickening. Acute blood loss anemia, GI bleeding, history of GERD, esophageal thickening on CT chest-most likely upper GI bleed from esophagitis versus PUD versus malignancy given thickening on CT and long-standing GERD. Has been Keep nothing by mouth has been on Protonix drip Hold Plavix and aspirin indefinitely EGd was done on 09/01/2016: report in below: Impression: - LA Grade D reflux esophagitis. - Medium-sized hiatus hernia. - Normal stomach. - Normal examined duodenum. - No specimens collected. Recommendation: - [facility]. - Use sucralfate suspension 1 gram PO BID daily. patient will be discharged home with Protonix by mouth and sucralfate by mouth , after patient discharged patient's pharmacy call me reported sucralfate suspension cause future mono co-pay patient not able to offer ot, I agreed to give Carafate tablet by mouth Syncope, with hx of CAD s/p CABG and 2 stents to the right coronary artery,ELIZABETH s/p R endarterectomy, HTN, PAF, history of CVA without residual deficits-all stable at this time. Syncope most likely secondary to acute blood loss anemia and occurred 5 days prior to admission. Patient has been up and walk no dizziness no difficulty walk, therefore feels so be safe to go home. Right-sided fractured ribs, small pleural effusion-in pain with atelectasis and CT. Morphine in the ER made her itchy and red on the arm. Continue Tylenol when necessary pain, will try Dilaudid for severe pain as morphine caused a reaction Until new Incentive spirometer will be provided Hypothyroidism-TSH normal 3 months ago -Continue home dose of levothyroxine DVT prophylaxis-SCDs only given GI bleeding DNR Instructions / Follow-Up you have Esophagitis, Hiatal hernia you need to continue Carafate susp 1 gm po bid, Protonix 40mg po daily, follow up with Dr. Treadwell as instructed you have Acute blood loss anemia, GI bleeding, history of GERD, Syncope, CAD s/p CABG and 2 stents to the right coronary artery,ELIZABETH s/p R endarterectomy, I wound Holding aspirin and Plavix for now, we'll need to restart when safe to do so from GI perspective, or from your family physician - you need to follow up with your primary care physician in 1 week, - take medication as instructed, never overdose or any misuse, or take with alcohol, because misuse of medicine may cause organ damage or , call your primary care physician if have questions of medicaitons. - call your primary care physician OR go to local emergency room if has any fever/chill, chest pain, shortness of breathing, nausea/vomiting/abdominal pain , facial droop/slurry speech/local weakness, or if has any questions. - fall precaution - diet as instructed - you need to follow up with your subspecialist - you should understand that it is important to follow up the above instruction , and "not following the above instruction" may cause delayed or missed care of your medical conditions which may cause permanent organ damage and even . Total Time Spent: Greater than 30 minutes This includes examination of the patient, discharge planning, medication reconciliation, and communication with other providers. Discharge Instructions Please refer to the electronic Patient Visit Report (Discharge Instructions) for additional information. Additional Copies To José Treadwell M.D.; Kamlesh Mcduffie M.D.
[2016-09-24] MEDS ORDERED: POLY335019 PO (12:31)
[2016-09-25] MEDS ORDERED: MOML PO (10:15)
[2017-03-22] MEDS ORDERED: CRD200 PO (15:39)
[2017-03-22] MEDS ORDERED: LEVO137T3 PO (15:39)
[2017-03-22] MEDS ORDERED: CEPH500C PO (15:39)
== END 2016-09-02 15:30 | disposition home or self-care (01) | DRG 392 ==
LOC: ENRESERVTM → ENRESERVDT → C.EDB 13:47 → C.2T 17:42
PROVIDERS: ADMIT Family Medicine; ATTEND Hospitalist
PROC: 0DJ08ZZ Inspection of Upper Intestinal Tract, Via Natural or Artificial Opening Endoscopic (ICD-10-PCS; principal; 2016-09-01 13:23)
DX: K21.0 Gastro-esophageal reflux disease with esophagitis (principal); S22.41XA Multiple fractures of ribs, right side, initial encounter for closed fracture; D62 Acute posthemorrhagic anemia; J90 Pleural effusion, not elsewhere classified; J98.11 Atelectasis; I25.10 Atherosclerotic heart disease of native coronary artery without angina pectoris; I48.0 Paroxysmal atrial fibrillation; I10 Essential (primary) hypertension; K44.9 Diaphragmatic hernia without obstruction or gangrene; E03.9 Hypothyroidism, unspecified; K59.09 Other constipation; L71.9 Rosacea, unspecified; Z95.1 Presence of aortocoronary bypass graft; Z93.3 Colostomy status; Z66 Do not resuscitate; Z86.73 Personal history of transient ischemic attack (TIA), and cerebral infarction without residual deficits; W19.XXXA Unspecified fall, initial encounter

== ENCOUNTER 2016-09-03 11:52 | Inpatient (IN) | payer OTHER ==
[~2016-09-03] VITALS: Ht 165.1 cm; Wt 58.8 kg
[~2016-09-03 11:52] MED LIST changes: -AMLO2.5T PO; -ASPI81TA28 PO; +CHOL1000 PO; -CHOL100010 PO; -CLOP1TAB15 PO; +CRFUDL PO; +DOXY-300 PO; +DSWCR TOP; -DSWCR15 TOP; -DXY50 PO; +LEVO125T72 PO; -LEVO150T PO; -LISI5TAB3 PO; -MECL12.5 PO; -METH500T3 PO; +METR0.7536 TOP; -METR1GEL3; +PANT40TA PO; -ZNTT/150 PO
[2016-09-03] MEDS ORDERED: SODIUM CHLORIDE 0.9% 1000ML 250 ML IV STA (12:13)
--- NOTE | 2016-09-03 12:52 | DIAGNOSTIC IMAGING REPORT ---
CHEST ONE VIEW PORTABLE CLINICAL HISTORY: EVALUATE RESPIRATORY DISTRESS. DYSPNEA dyspnea COMPARISON STUDY: 08/22/2014 FINDINGS: Mild cardia megaly. Prior median sternotomy. Mild bibasilar interstitial infiltrative change. Mid and upper lungs are considered clear. IMPRESSION: Mild bibasilar interstitial infiltrative change. Mild cardiomegaly. Electronically signed by: Freddy Sherman M.D. 09/03/2016 12:50 PM Dictated Date/Time: 09/03/2016 12:50 PM
[2016-09-03 12:59] LABS: BASO % 0.4 %; BASO ABS # 0.04 K/uL (0-0.2); COMPLETE YES; EOS % 1.4 %; HEMATOCRIT 27.9 % (37-47); IG% 0.3 %; LYMPH % 11.4 %; LYMPH ABS # 1.19 K/uL (1.2-3.4); MEAN CELL VOLUME 84.8 fL (80-100); MEAN CORPUSCULAR HEMOGLOBIN 29.2 pg (25-34); MEAN CORPUSCULAR HGB CONC 34.4 g/dl (32-36); MEAN PLATELET VOLUME 10.2 fL (7.4-10.4); MONO % 9.8 %; NEUT % 76.7 %; PLATELET COUNT 382 K/uL (130-400); RED BLOOD COUNT 3.29 M/uL (4.2-5.4); WHITE BLOOD COUNT 10.45 K/uL (4.8-10.8)
[2016-09-03 13:14] LABS: INR 1.1 (0.9-1.1); PROTHROMBIN TIME (PATIENT) 11.3 SECONDS (9.0-12.0)
[2016-09-03 13:16] LABS: ALT/SGPT 19 U/L (12-78); AST/SGOT 18 U/L (15-37); BLOOD UREA NITROGEN 18 mg/dl (7-18); BUN/CREATININE RATIO 16.3 (10-20); CALCIUM 8.9 mg/dl (8.5-10.1); CARBON DIOXIDE 26 mmol/L (21-32); CHLORIDE 100 mmol/L (98-107); GLUCOSE 81 mg/dl (70-99); POTASSIUM 4.6 mmol/L (3.5-5.1); SODIUM 133 mmol/L (136-145)
[2016-09-03 13:21] LABS: ALB/GLOB RATIO 0.8 (0.9-2); ALKALINE PHOSPHATASE 89 U/L (45-117)
--- NOTE | 2016-09-03 13:23 | EMERGENCY ROOM VISIT NOTE ---
History Report prepared by [place]: Albert Alcantar Under the Supervision of: Dr. Que Chow M.D. First contact with patient: 12:05 Chief Complaint: RESPIRATORY PROBLEMS Stated Complaint: TROUBLE BREATHING, PAIN IN RT RIB/BACK History of Present Illness The patient is a 86 year old female who presents to the Emergency Room with complaints of constant shortness of breath starting this morning. The patient was at baseline yesterday. She also reports a mild cough, weakness, and tiredness. She notes a loss of appetite, but reports a normal fluid intake. She does not wear oxygen at home. The patient's home health nurse referred her to the Emergency Room for low oxygen saturation. She denies any history of COPD or lung disease. This morning, the patient also had dark stools. She also complains of low back pain which worsened after she had a fall last week. She was discharged from [facility] 2 days ago for GI bleeding which was thought to be related to her esophagitis. She did have an endoscopy. She was found to have right sided rib fractures related to the fall last week. She currently denies dizziness, chest pain, abdominal pain, or any other complaints. Source of History: patient Onset: this morning Position: other (global) Quality: other (shortness of breath) Timing: constant Associated Symptoms: + back pain, + cough, + weakness, No abdominal pain, No chest pain Review of Systems See HPI for pertinent positives & negatives. A total of 10 systems reviewed and were otherwise negative. Past Medical & Surgical Medical Problems: (1) Acid reflux (2) Anemia (3) Coronary artery disease (4) Gastrointestinal bleed (5) HTN (hypertension) (6) Hypothyroidism (7) Myocardial infarction (8) Vertigo Surgical Problems: (1) Hx of CABG Family History Cancer Heart disease Social History Smoking Status: Never Smoker Alcohol Use: none Drug Use: none Marital Status: Housing Status: lives alone Occupation Status: retired Current/Historical Medications Scheduled Atenolol (Tenormin), 12.5 MG PO BID Cholecalciferol (Vitamin D3), 1 TAB PO DAILY Desonide 0.05% (Desowen 0.05%), 1 APPLN TOP BID Doxycycline (Monohydrate) (Doxycycline), 1 CAP PO DAILY Levothyroxine Sodium (Synthroid), 125 MCG PO DAILY Metronidazole (Topical) (Metronidazole), 1 APPLN TOP DAILY Multivitamin (Multivitamin), 1 TAB PO DAILY Nitroglycerin (Nitrostat), 0.4 MG UT PRN Pantoprazole (Protonix), 40 MG PO DAILY Sucralfate (Sucralfate), 1 GM PO BID@0700,1615 Scheduled PRN Docusate Sodium (Stool Softener), 100 MG PO BID PRN for Constipation Allergies Coded Allergies: Morphine (Verified Allergy, Mild, Itching, 09/03/16) and erythema at site of injection Penicillins (Verified Allergy, Unknown, 09/03/16) Atorvastatin (Verified Adverse Reaction, Unknown, 09/03/16) Ezetimibe (Verified Adverse Reaction, Unknown, 09/03/16) Physical Exam Vital Signs Date Time Temp Pulse Resp B/P Pulse Ox O2 Delivery O2 Flow Rate FiO2 09/03/16 12:43 97 Room Air 09/03/16 12:39 61 24 155/60 97 Room Air 63 165/65 71 166/86 09/03/16 12:34 62 09/03/16 11:54 36.5 65 18 146/73 98 Room Air Physical Exam GENERAL: Patient is in no acute distress. HEENT: No acute trauma, normocephalic atraumatic, mucous membranes moist, no nasal congestion, no scleral icterus. NECK: No stridor, no adenopathy, no meningismus, trachea is midline. LUNGS: Crackles at both bases. Breath sounds equal, no wheezing HEART: Without murmurs gallops or rubs, regular rate and rhythm. ABDOMEN: Soft, nontender, bowel sounds positive, no hernias, no peritonitis. BACK: Tender diffusely over the lower lumbar spine, no bony step off. EXTREMITIES: No cyanosis or edema, full range of motion of all the joints without pain or difficulty, no signs for acute trauma. NEUROLOGIC: Oriented x 3, no acute motor or sensory deficits, no focal weakness. SKIN: No rash, no jaundice, no diaphoresis. Medical Decision & Procedures ER Provider Diagnostic Interpretation: Orthostatic vital signs are negative. X ray results and stated below per my interpretation and radiologist interpretation. CT results and stated below per my review and radiologist interpretation: CHEST ONE VIEW PORTABLE CLINICAL HISTORY: EVALUATE RESPIRATORY DISTRESS. DYSPNEA dyspnea COMPARISON STUDY: 08/22/2014 FINDINGS: Mild cardia megaly. Prior median sternotomy. Mild bibasilar interstitial infiltrative change. Mid and upper lungs are considered clear. IMPRESSION: Mild bibasilar interstitial infiltrative change. Mild cardiomegaly. Electronically signed by: Freddy Sherman M.D. 09/03/2016 12:50 PM Dictated Date/Time: 09/03/2016 12:[address] LUMBAR SPINE WITHOUT CT DOSE: 703.92 mGy.cm CLINICAL HISTORY: Back pain status post trauma TECHNIQUE: Helical images were acquired in transverse plane. Reformatted sagittal and coronal images were reviewed. CONTRAST: No contrast was administered COMPARISON STUDY: Conventional radiographic study performed July 2008 FINDINGS: There is a right pleural effusion. L1-2 level: There is a circumferential disc bulge present. There is no significant spinal foraminal stenosis L2-3 level: There is a circumferential disc bulge with mild spinal stenosis. There is no significant foraminal narrowing L3-4 level: There is a circumferential disc bulge with moderate spinal stenosis. There is no significant foraminal narrowing L4-5 level: There are postsurgical changes of a discectomy and interbody fusion. Postlaminectomy changes are visualized. There is posterior pedicle screw fusion. No disc herniations are visualized. There is no significant spinal or foraminal stenosis L5-S1 level: There is a minor circumferential disc bulge. There is no significant spinal foraminal stenosis. There is facet joint arthropathy. IMPRESSION: 1. Postsurgical changes at the L4-5 level 2. Multilevel spondylitic changes with spinal stenosis most severe at the L3-4 level 3. No acute fractures or traumatic subluxations are visualized 4. Right pleural effusion Electronically signed by: Clay Rivas M.D. 09/03/2016 1:27 PM Dictated Date/Time: 09/03/2016 1:23 PM Laboratory Results 09/03/16 12:35 Red Blood Count 3.29, Mean Corpuscular Volume 84.8, Mean Corpuscular Hemoglobin 29.2, Mean Corpuscular Hemoglobin Concent 34.4, Mean Platelet Volume 10.2, Neutrophils (%) (Auto) 76.7, Lymphocytes (%) (Auto) 11.4, Monocytes (%) (Auto) 9.8, Eosinophils (%) (Auto) 1.4, Basophils (%) (Auto) 0.4, Neutrophils # (Auto) 8.02, Lymphocytes # (Auto) 1.19, Monocytes # (Auto) 1.02, Eosinophils # (Auto) 0.15, Basophils # (Auto) 0.04 09/03/16 12:35 Test 09/03/16 12:35 White Blood Count 10.45 K/uL (4.8-10.8) Red Blood Count 3.29 M/uL (4.2-5.4) Hemoglobin 9.6 g/dL (12.0-16.0) Hematocrit 27.9 % (37-47) Mean Corpuscular Volume 84.8 fL (80-100) Mean Corpuscular Hemoglobin 29.2 pg (25-34) Mean Corpuscular Hemoglobin Concent 34.4 g/dl (32-36) Platelet Count 382 K/uL (130-400) Mean Platelet Volume 10.2 fL (7.4-10.4) Neutrophils (%) (Auto) 76.7 % Lymphocytes (%) (Auto) 11.4 % Monocytes (%) (Auto) 9.8 % Eosinophils (%) (Auto) 1.4 % Basophils (%) (Auto) 0.4 % Neutrophils # (Auto) 8.02 K/uL (1.4-6.5) Lymphocytes # (Auto) 1.19 K/uL (1.2-3.4) Monocytes # (Auto) 1.02 K/uL (0.11-0.59) Eosinophils # (Auto) 0.15 K/uL (0-0.5) Basophils # (Auto) 0.04 K/uL (0-0.2) RDW Standard Deviation 46.9 fL (36.4-46.3) RDW Coefficient of Variation 15.1 % (11.5-14.5) Immature Granulocyte % (Auto) 0.3 % Immature Granulocyte # (Auto) 0.03 K/uL (0.00-0.02) Prothrombin Time 11.3 SECONDS (9.0-12.0) Prothromb Time International Ratio 1.1 (0.9-1.1) Activated Partial Thromboplast Time 26.6 SECONDS (21.0-31.0) Partial Thromboplastin Ratio 1.0 D-Dimer 1090 ug/L FEU (0-500) Anion Gap 7.0 mmol/L (3-11) Est Creatinine Clear Calc Drug Dose 33.6 ml/min Estimated GFR () 53.0 Estimated GFR (Non- 45.7 BUN/Creatinine Ratio 16.3 (10-20) Calcium Level 8.9 mg/dl (8.5-10.1) Total Bilirubin 0.4 mg/dl (0.2-1) Aspartate Amino Transf (AST/SGOT) 18 U/L (15-37) Alanine Aminotransferase (ALT/SGPT) 19 U/L (12-78) Alkaline Phosphatase 89 U/L (45-117) Troponin I < 0.015 ng/ml (0-0.045) Pro-B-Type Natriuretic Peptide 2243 pg/ml (0-1800) Total Protein 6.4 gm/dl (6.4-8.2) Albumin 2.8 gm/dl (3.4-5.0) Globulin 3.6 gm/dl (2.5-4.0) Albumin/Globulin Ratio 0.8 (0.9-2) Laboratory results reviewed by me. Medications Administered Medications (Trade) Dose Ordered Sig/[place] Route Start Time Stop Time Status Last Admin Dose Admin Sodium Chloride (Nss 1000ml) 250 ml @ 999 mls/hr Q16M STAT IV 09/03/16 12:13 09/03/16 12:28 DC 09/03/16 12:13 999 MLS/HR Furosemide (Lasix Inj) 20 mg NOW STAT IV 09/03/16 14:00 09/03/16 14:02 DC 09/03/16 14:52 20 MG Levofloxacin (Levaquin / D5W) 750 mg NOW STAT IV 09/03/16 14:00 09/03/16 14:02 DC 09/03/16 14:53 750 MG Acetaminophen (Tylenol Tab) 650 mg Q4H PRN PO 09/03/16 14:45 10/03/16 14:44 09/03/16 16:32 650 MG ECG Indication: SOB/dyspnea Rate (beats per minute): 64 Rhythm: normal sinus Findings: no acute ischemic change, no ectopy ED Course 1205: The patient was evaluated in room A12B. A complete history and physical exam was performed. 1213: Sodium Chloride 250 ml @ 999 mls/hr IV 1348: Upon reexamination the patient is resting comfortably. I discussed results and treatment plan with the patient. She verbalizes agreement and understanding. The patient will be evaluated for further management. 1400: Levofloxacin 750 mg IV, Lasix Inj 20 mg IV 1402: I discussed the patient's case with Dr. Velásquez, from [facility]. Medical Decision Differential diagnosis includes but is not limited to GI bleed, anemia, electrolyte imbalance, dehydration, infection, CHF, pneumonia, UTI. There is no leukocytosis. The patient is anemic but her hemoglobin is stable based on her recent testing. No significant electrolyte abnormality or kidney failure. BNP is elevated consistent with possible fluid overload. There was no hepatitis or coagulopathy. EKG shows a sinus rhythm, no acute ischemia. Cardiac enzyme testing 1 is not consistent with acute cardiac injury. Lumbar spine CT shows arthritis, no acute fracture. Chest film shows congestion in both bases especially on the right-this finding could be consistent with CHF or pneumonia. Blood cultures are pending. The patient presents with dyspnea. She appeared short of breath on exam. Her lungs did sound crackly at both bases. She was not hypoxic though by our pulse ox testing. The patient received IV Lasix for fluid overload. She received IV Levaquin for the possibility of pneumonia. Given the GI bleeding, given the anemia, given her dyspnea and the chest x-ray findings, further care in the hospital was felt warranted. I did speak with the patient and case management. The on-call hospitalist was consulted. Consults Time Called: [phone] Consulting Physician: Dr. Velásquez, from [facility] Returned Call: [phone] I discussed the patient's case with Dr. Velásquez, from [facility]. Impression Primary Impression: Pneumonia Additional Impressions: SOB (shortness of breath) Anemia Scribe Attestation The scribe's documentation has been prepared under my direction and personally reviewed by me in its entirety. I confirm that the note above accurately reflects all work, treatment, procedures, and medical decision making performed by me. Departure Information Dispostion Being Evaluated By Hospitalist Referrals Kamlesh Mcduffie M.D. (PCP) Patient Instructions [facility] Problem Qualifiers
--- NOTE | 2016-09-03 13:28 | DIAGNOSTIC IMAGING REPORT ---
CT LUMBAR SPINE WITHOUT CT DOSE: 703.92 mGy.cm CLINICAL HISTORY: Back pain status post trauma TECHNIQUE: Helical images were acquired in transverse plane. Reformatted sagittal and coronal images were reviewed. CONTRAST: No contrast was administered COMPARISON STUDY: Conventional radiographic study performed July 2008 FINDINGS: There is a right pleural effusion. L1-2 level: There is a circumferential disc bulge present. There is no significant spinal foraminal stenosis L2-3 level: There is a circumferential disc bulge with mild spinal stenosis. There is no significant foraminal narrowing L3-4 level: There is a circumferential disc bulge with moderate spinal stenosis. There is no significant foraminal narrowing L4-5 level: There are postsurgical changes of a discectomy and interbody fusion. Postlaminectomy changes are visualized. There is posterior pedicle screw fusion. No disc herniations are visualized. There is no significant spinal or foraminal stenosis L5-S1 level: There is a minor circumferential disc bulge. There is no significant spinal foraminal stenosis. There is facet joint arthropathy. IMPRESSION: 1. Postsurgical changes at the L4-5 level 2. Multilevel spondylitic changes with spinal stenosis most severe at the L3-4 level 3. No acute fractures or traumatic subluxations are visualized 4. Right pleural effusion Electronically signed by: Clay Rivas M.D. 09/03/2016 1:27 PM Dictated Date/Time: 09/03/2016 1:23 PM
[2016-09-03] MEDS ORDERED: FUROSEMIDE 40 MG/4 ML VIAL IV STA (14:00)
[2016-09-03] MEDS ORDERED: LEVAQUIN 750MG / 150ML D5W IV STA (14:00)
[2016-09-03] MEDS ORDERED: NITROGLYCERIN 0.4 MG SL PER TAB CHARGE UT PRN (14:45)
[2016-09-03] MEDS ORDERED: ONDANSETRON INJ 2 MG/ML 2 ML VIAL IV PRN (14:45)
[2016-09-03] MEDS ORDERED: DOCUSATE SODIUM 100 MG CAP PO PRN (14:45)
[2016-09-03] MEDS ORDERED: OPTIRAY 320 IV PRN (14:45)
[2016-09-03] MEDS ORDERED: POLYETHYLENE (MIRALAX) 17 GM PACK PO PRN (14:45)
[2016-09-03] MEDS ORDERED: ALUMINUM/MAGNESIUM/SIMETH (MAALOX MAX) 30 ML UDC PO PRN (14:45)
[2016-09-03] MEDS ORDERED: MAGNESIUM HYDROXIDE SUSP 30 ML UDC PO PRN (14:45)
--- NOTE | 2016-09-03 15:06 | History and Physical ---
History & Physical Date & Time of Service: Sep 03, 2016 at 14:41 Chief Complaint: Trouble Breathing, Pain In Rt Rib/Back Primary Care Physician: Kamlesh Mcduffie M.D. History of Present Illness Source: patient, family, clinic records, hospital records Patient is a pleasant 86 y/o female, with PMHx of CAD s/p 2 vessel CABG in 1999 followed by 2 stents to the right coronary artery in 2010, carotid artery stenosis, hypothyroidism, hypertension, paroxysmal A. fib, history of CVA without residual deficits, GERD, chronic constipation, rosacea, and diverticulitis, who presented to the ED because of SOB x1 day. Patient woke up this morning and noticed she was extremely SOB. She denies any h/o COPD or asthma. She denies any h/o CHF, PE/DVT. Patient was admitted on 08/31 due to a GI bleed and fall secondary to syncope. EGD was performed on 09/01 reporting esophagitis. Rib sided rib fractures resulted from fall. She was discharged on w/ Protonix and Carafate. Currently, patient is oxygenating at 98% on RA. Her last BM was this AM and was reported to be dark. Patient denies any fever, chills, sweats, lightheadedness, dizziness, vision changes, CP, palpitations, edema, wheezing, cough, abdominal pain, nausea, vomiting, diarrhea, urinary symptoms, numbness/tingling, weakness, muscle/joint pain, anxiety/depression, active bleeding, or new skin discoloration/changes. Past Medical/Surgical History Medical Problems: CAD s/p 2 vessel CABG in 1999 followed by 2 stents to the right coronary artery in 2010 carotid artery stenosis hypothyroidism hypertension paroxysmal A. fib history of CVA without residual deficits GERD w/ esophagitis chronic constipation rosacea diverticulitis Family History Cancer Heart disease Social History Smoking Status: Never Smoker Drug Use: none Marital Status: Housing status: lives alone Occupational Status: retired Immunizations History of Influenza Vaccine: Yes History of Tetanus Vaccine?: Yes History of Pneumococcal: Yes History of Hepatitis B Vaccine: No Multi-Drug Resistant Organisms History of MDRO: No Allergies Coded Allergies: Morphine (Verified Allergy, Mild, Itching, 09/03/16) and erythema at site of injection Penicillins (Verified Allergy, Unknown, 09/03/16) Atorvastatin (Verified Adverse Reaction, Unknown, 09/03/16) Ezetimibe (Verified Adverse Reaction, Unknown, 09/03/16) Home Medications Scheduled Atenolol (Tenormin), 12.5 MG PO BID Cholecalciferol (Vitamin D3), 1 TAB PO DAILY Desonide 0.05% (Desowen 0.05%), 1 APPLN TOP BID Doxycycline (Monohydrate) (Doxycycline), 1 CAP PO DAILY Levothyroxine Sodium (Synthroid), 125 MCG PO DAILY Metronidazole (Topical) (Metronidazole), 1 APPLN TOP DAILY Multivitamin (Multivitamin), 1 TAB PO DAILY Nitroglycerin (Nitrostat), 0.4 MG UT PRN Pantoprazole (Protonix), 40 MG PO DAILY Sucralfate (Sucralfate), 1 GM PO BID@0700,1615 Scheduled PRN Docusate Sodium (Stool Softener), 100 MG PO BID PRN for Constipation Physical Exam Vital Signs Date Time Temp Pulse Resp B/P Pulse Ox O2 Delivery O2 Flow Rate FiO2 09/03/16 12:43 97 Room Air 09/03/16 12:39 61 24 155/60 97 Room Air 63 165/65 71 166/86 09/03/16 12:34 62 09/03/16 11:54 36.5 65 18 146/73 98 Room Air General Appearance: no apparent distress Head: normocephalic, atraumatic Eyes: normal inspection, PERRL ENT: hearing grossly normal Neck: supple Respiratory/Chest: lungs clear, no respiratory distress, no accessory muscle use, + decreased breath sounds (right lung base ) Cardiovascular: regular rate, rhythm Abdomen/GI: normal bowel sounds, non tender, soft Back: normal inspection Extremities/Musculoskelatal: no calf tenderness, no pedal edema Neurologic/Psych: alert, normal mood/affect, oriented x 3 Skin: normal color, warm/dry, no rash Diagnostics Laboratory Results Results Past 24 Hours Test 09/03/16 12:35 Range/Units White Blood Count 10.45 4.8-10.8 K/uL Red Blood Count 3.29 4.2-5.4 M/uL Hemoglobin 9.6 12.0-16.0 g/dL Hematocrit 27.9 37-47 % Mean Corpuscular Volume 84.8 80-100 fL Mean Corpuscular Hemoglobin 29.2 25-34 pg Mean Corpuscular Hemoglobin Concent 34.4 32-36 g/dl Platelet Count 382 130-400 K/uL Mean Platelet Volume 10.2 7.4-10.4 fL Neutrophils (%) (Auto) 76.7 % Lymphocytes (%) (Auto) 11.4 % Monocytes (%) (Auto) 9.8 % Eosinophils (%) (Auto) 1.4 % Basophils (%) (Auto) 0.4 % Neutrophils # (Auto) 8.02 1.4-6.5 K/uL Lymphocytes # (Auto) 1.19 1.2-3.4 K/uL Monocytes # (Auto) 1.02 0.11-0.59 K/uL Eosinophils # (Auto) 0.15 0-0.5 K/uL Basophils # (Auto) 0.04 0-0.2 K/uL RDW Standard Deviation 46.9 36.4-46.3 fL RDW Coefficient of Variation 15.1 11.5-14.5 % Immature Granulocyte % (Auto) 0.3 % Immature Granulocyte # (Auto) 0.03 0.00-0.02 K/uL Prothrombin Time 11.3 9.0-12.0 SECONDS Prothromb Time International Ratio 1.1 0.9-1.1 Activated Partial Thromboplast Time 26.6 21.0-31.0 SECONDS Partial Thromboplastin Ratio 1.0 D-Dimer 1090 0-500 ug/L FEU Sodium Level 133 136-145 mmol/L Potassium Level 4.6 3.5-5.1 mmol/L Chloride Level 100 98-107 mmol/L Carbon Dioxide Level 26 21-32 mmol/L Anion Gap 7.0 3-11 mmol/L Blood Urea Nitrogen 18 7-18 mg/dl Creatinine 1.10 0.60-1.20 mg/dl Est Creatinine Clear Calc Drug Dose 33.6 ml/min Estimated GFR () 53.0 Estimated GFR (Non- 45.7 BUN/Creatinine Ratio 16.3 10-20 Random Glucose 81 70-99 mg/dl Calcium Level 8.9 8.5-10.1 mg/dl Total Bilirubin 0.4 0.2-1 mg/dl Aspartate Amino Transf (AST/SGOT) 18 15-37 U/L Alanine Aminotransferase (ALT/SGPT) 19 12-78 U/L Alkaline Phosphatase 89 45-117 U/L Troponin I < 0.015 0-0.045 ng/ml Pro-B-Type Natriuretic Peptide 2243 0-1800 pg/ml Total Protein 6.4 6.4-8.2 gm/dl Albumin 2.8 3.4-5.0 gm/dl Globulin 3.6 2.5-4.0 gm/dl Albumin/Globulin Ratio 0.8 0.9-2 Microbiology Results 09/03/16 Blood Culture, Received Pending 09/03/16 Blood Culture, Received Pending Diagnostic Radiology CT LUMBAR SPINE WITHOUT CT DOSE: 703.92 mGy.cm CLINICAL HISTORY: Back pain status post trauma TECHNIQUE: Helical images were acquired in transverse plane. Reformatted sagittal and coronal images were reviewed. CONTRAST: No contrast was administered COMPARISON STUDY: Conventional radiographic study performed July 2008 FINDINGS: There is a right pleural effusion. L1-2 level: There is a circumferential disc bulge present. There is no significant spinal foraminal stenosis L2-3 level: There is a circumferential disc bulge with mild spinal stenosis. There is no significant foraminal narrowing L3-4 level: There is a circumferential disc bulge with moderate spinal stenosis. There is no significant foraminal narrowing L4-5 level: There are postsurgical changes of a discectomy and interbody fusion. Postlaminectomy changes are visualized. There is posterior pedicle screw fusion. No disc herniations are visualized. There is no significant spinal or foraminal stenosis L5-S1 level: There is a minor circumferential disc bulge. There is no significant spinal foraminal stenosis. There is facet joint arthropathy. IMPRESSION: 1. Postsurgical changes at the L4-5 level 2. Multilevel spondylitic changes with spinal stenosis most severe at the L3-4 level 3. No acute fractures or traumatic subluxations are visualized 4. Right pleural effusion Electronically signed by: Clay Rivas M.D. 09/03/2016 1:27 PM Dictated Date/Time: 09/03/2016 1:23 PM The status of this report is Signed. Draft = Not yet reviewed or approved by Radiologist. Signed = Reviewed and approved by Radiologist. CHEST ONE VIEW PORTABLE CLINICAL HISTORY: EVALUATE RESPIRATORY DISTRESS. DYSPNEA dyspnea COMPARISON STUDY: 08/22/2014 FINDINGS: Mild cardia megaly. Prior median sternotomy. Mild bibasilar interstitial infiltrative change. Mid and upper lungs are considered clear. IMPRESSION: Mild bibasilar interstitial infiltrative change. Mild cardiomegaly. Electronically signed by: Freddy Sherman M.D. 09/03/2016 12:50 PM Dictated Date/Time: 09/03/2016 12:50 PM The status of this report is Signed. Draft = Not yet reviewed or approved by Radiologist. Signed = Reviewed and approved by Radiologist. EKG JESSICA HAZEL ID:[id number] 03-SEP-2016 12:29:33 [facility] Normal sinus rhythm Normal ECG When compared with ECG of 02-SEP-2016 06:20, No significant change was found 25mm/s 10mm/mV 150Hz 8.0 SP2 12SL 241 BONY: 0 Referred by: Referred Self Unconfirmed Vent. rate 64 BPM NV interval 158 ms QRS duration 94 ms QT/QTc 422/435 ms P-R-T axes 44 41 42 1930 (86 yr) Female Room:[facility] Loc:15 Drum Operator:KYRIE Saenz ind: Impression Assessment and Plan 86 y/o female, with PMHx of CAD s/p 2 vessel CABG in 1999 followed by 2 stents to the right coronary artery in 2010, carotid artery stenosis, hypothyroidism, hypertension, paroxysmal A. fib, history of CVA without residual deficits, GERD , chronic constipation, rosacea, and diverticulitis, who presented to the ED because of SOB x1 day. SOB, ?secondary to PE vs CHF vs PNA: - Admit to tele for cardiac monitoring - Trend cardiac enzymes- initial trop negative - D-dimer elevated at 1090--> obtain CT of chest - ?Hospital-acquired PNA w/ bibasilar infiltrative changes on CXR vs CHF w/ elevated BNP at 2243 (no previous records to compare) -- IV Levaquin x1 dose given in ED + IV 20 mg Lasix x1 dose given in ED--> will hold on further Lasix/antibiotic at this time pending CT of chest CAD s/p 2 vessel CABG in 1999 followed by 2 stents to the right coronary artery in 2010, carotid artery stenosis, a.fib: - Continue Atenolol 12.5 mg daily - ECHO on 08/31- EF of 65-70%, LVH, diastolic dysfunction, mild MF, mild TR, mild pulmonic valvular regurgitation Mild hyponatremia, baseline 133-15- stable: - Hold on IVF at this time due to IV Lasix treatment in ED. Reassess need for IVF tomorrow AM Hypothyroidism: - Continue Synthroid 125 daily - TSH 0.396 on 06/16/16 h/o CVA: Plavix and ASA was discontinued on last admission (08/31) due to GI bleed Suspected GI bleed (admission on 08/31): - hgb stable - Follow CBC - EGD on 09/01 reporting esophagitis- Continue Carafate and Protonix Right sided rib fractures s/p fall on 08/31: - Continue Tylenol PRN for pain management (patient states pain is well controlled w/ Tylenol and does not want anything else) - PT/OT Rosacea: - Continue topical Metronidazole - Continue Doxycycline 100 mg daily--> pt cannot state why she is on this medications and I cannot find anything in the records, ?for rosacea treatment GERD: Continue Protonix GI Prophylaxis: Maalox PRN, IV Zofran PRN, Colace and/or Milk of Mag PRN DVT prophylaxis: held DVT prophylaxis at this time due to recent GI bleed w/ ? of PE and/or lower extremity DVT Code Status: LEVEL V, DNR Dispo: From home, lives alone PA Physician Supervision Note: I interviewed and examined the patient. Discussed with Irene Christopher PAC and agree with findings and plan as documented in the note. Any exceptions or clarifications are listed here: None Discharged two days ago for fall, rib fx and GIB, developed acute sob this am, not hypoxic, hgb the same and right pleural effusion previously thought to be from diastolic dysfnction and poor nutrition, given lasix and levaquin in ER due to RLL changes seen on CXR but CTA did not show pneumonia or PE, maybe symptomatic from effusion? will eval volume of effusion and consider tapping. vitals are stable, appears short of breath car is regular lungs diminshed at right base will eval pleural effusion, consider pulmonary evaluation, no need for continued antibiotics unless declares infectious Documented By: Errol Velásquez Level of Care Telemetry Resuscitation Status DO NOT RESUSCITATE VTE Prophylaxis VTE Risk Assessment Done? Y/N: Yes Risk Level: Moderate
[2016-09-03 15:34] LABS: MANUAL MICROSCOPIC REQUIRED? NO; REVIEW REQ? NO; URINE APPEARANCE CLEAR (CLEAR); URINE BILIRUBIN NEG (NEG); URINE COLOR YELLOW; URINE EPITHELIAL CELL AUTO 0-5 /lpf (0-5); URINE NITRITE NEG (NEG); URINE SPECIFIC GRAVITY 1.007 (1.000-1.030); UROBILINOGEN NEG (NEG); ZZUR CULT IF INDIC CLEAN CATCH NO
--- NOTE | 2016-09-03 15:49 | DIAGNOSTIC IMAGING REPORT ---
CT ANGIOGRAM OF THE CHEST CLINICAL HISTORY: Right posterior chest pain. Shortness of breath. COMPARISON STUDY: 08/31/2016 TECHNIQUE: Following the IV administration of 100 mL of Optiray-320, CT angiogram of the thorax was performed from the thoracic inlet to the lung bases utilizing the pulmonary embolus protocol. Images are reviewed in the axial, sagittal, and coronal planes. IV contrast was administered without complication. MIP imaging was performed. CT DOSE: 267.72 mGy.cm FINDINGS: No pathologically enlarged axillary mediastinal or hilar lymph nodes were visualized. There was no evidence of thoracic aortic dilatation. No pulmonary emboli are visualized. Evaluation of the lower lobe vessels is limited due to respiratory motion artifact There is an increasing right pleural effusion. There are right lower lobe atelectatic changes. There is esophageal wall thickening. IMPRESSION: 1. Moderately limited study from a technical standpoint secondary to significant respiratory motion artifact 2. No pulmonary emboli identified 3. Increasing right pleural effusion 4. Esophageal wall thickening 5. Right lower lobe compressive atelectatic changes 6. Given the technically limited nature of this examination, correlation with serial leg ultrasonography should be considered. Electronically signed by: Clay Rivas M.D. 09/03/2016 3:48 PM Dictated Date/Time: 09/03/2016 3:44 PM
[2016-09-03 16:00] VITALS: BP 178/70; PULSE 67; TEMP 36.5; O2SAT 98; Ht 165.1 cm; Wt 58.8 kg
[2016-09-03] MEDS ORDERED: IV FLUIDS COMPLETED PRN (16:00)
[2016-09-03] MEDS: ACETAMINOPHEN 325 MG TAB PO PRN (16:32)
[2016-09-03] MEDS: SUCRALFATE 1 GM/10 ML UDC PO SCH (17:29)
[2016-09-03 19:33] VITALS: BP 147/66; PULSE 67; TEMP 36.5; O2SAT 98
[2016-09-03] MEDS: DESONIDE CR 15 GM TUBE EXT SCH (20:42)
[2016-09-03] MEDS: HEPARIN SOD 5000 UNIT/0.5 ML CARP SQ SCH (21:11)
--- NOTE | 2016-09-03 21:42 | DIAGNOSTIC IMAGING REPORT ---
BILATERAL LOWER EXTREMITY VENOUS DOPPLER CLINICAL HISTORY: Shortness of breath. COMPARISON STUDY: Left lower extremity venous Doppler August 21, 2008. TECHNIQUE: Sonography of the deep venous system of the bilateral lower extremities was performed. Compression and augmentation were evaluated. FINDINGS: The bilateral common femoral, superficial femoral and popliteal veins were compressible. Augmentation was normal. Flow was shown within the deep calf vessels. IMPRESSION: No evidence of deep venous thrombus within the bilateral lower extremities. Electronically signed by: Gabriele Clancy M.D. 09/03/2016 9:40 PM Dictated Date/Time: 09/03/2016 9:39 PM
--- NOTE | 2016-09-03 21:44 | DIAGNOSTIC IMAGING REPORT ---
BILATERAL CHEST ULTRASOUND TO ASSESS FOR PLEURAL EFFUSION CLINICAL HISTORY: Right pleural effusion. COMPARISON STUDY: Chest CT September 03, 2016. FINDINGS: Sonography of the left hemithorax demonstrated no pleural effusion. Sonography of the right hemithorax demonstrated a small to moderate right pleural effusion with estimated volume of 332 cc. No chest wall tank was placed given insufficient window for thoracentesis. IMPRESSION: 1. Small to moderate right pleural effusion. No chest wall tank given insufficient window for thoracentesis. 2. No left pleural effusion. Electronically signed by: Gabriele Clancy M.D. 09/03/2016 9:43 PM Dictated Date/Time: 09/03/2016 9:40 PM
[2016-09-03 23:59] VITALS: BP 133/59; PULSE 78; TEMP 36.9; O2SAT 98
[2016-09-04] VITALS (10 sets, daily range): BP systolic 125–144; BP diastolic 52–71; PULSE 62–66; TEMP 36.5–37; O2SAT 94–99
[2016-09-04] MEDS: ACETAMINOPHEN 325 MG TAB PO PRN ×5 (00:11→19:44)
[2016-09-04 05:45] LABS: BLOOD UREA NITROGEN 15 mg/dl (7-18); BUN/CREATININE RATIO 12.7 (10-20); CALCIUM 8.8 mg/dl (8.5-10.1); CARBON DIOXIDE 29 mmol/L (21-32); CHLORIDE 100 mmol/L (98-107); GLUCOSE 96 mg/dl (70-99); POTASSIUM 3.8 mmol/L (3.5-5.1); SODIUM 135 mmol/L (136-145)
[2016-09-04] MEDS: LEVOTHYROXINE 125 MCG TAB PO SCH (06:13)
[2016-09-04 07:14] LABS: HEMATOCRIT 28.6 % (37-47); MEAN CELL VOLUME 85.4 fL (80-100); MEAN CORPUSCULAR HEMOGLOBIN 29.9 pg (25-34); MEAN PLATELET VOLUME 10.6 fL (7.4-10.4); PLATELET COUNT 384 K/uL (130-400); RED BLOOD COUNT 3.35 M/uL (4.2-5.4); WHITE BLOOD COUNT 10.13 K/uL (4.8-10.8)
[2016-09-04] MEDS: SUCRALFATE 1 GM/10 ML UDC PO SCH ×2 (07:37→16:53)
[2016-09-04] MEDS: PANTOprazole SOD 40 MG TAB PO SCH (07:38)
[2016-09-04] MEDS: CHOLECALCIFEROL 1000 INTER.UNIT TAB PO SCH (07:38)
[2016-09-04] MEDS: MULTIVITAMIN TAB PO SCH (07:38)
[2016-09-04] MEDS: DOXYCYCLINE HYCLATE 100 MG CAP PO SCH (07:38)
[2016-09-04] MEDS: HEPARIN SOD 5000 UNIT/0.5 ML CARP SQ SCH ×2 (08:17→19:42)
--- NOTE | 2016-09-04 08:46 | Medical Consult ---
Consultation Note Date of Service Sep 04, 2016. Consultation Note Consulted Dictated #[id number]
[2016-09-04] MEDS: DESONIDE CR 15 GM TUBE EXT SCH ×2 (08:48→19:38)
--- NOTE | 2016-09-04 09:11 | CONSULTATION REPORT ---
DATE OF CONSULTATION: 09/04/2016 REASON FOR CONSULTATION: Pleural effusion. HISTORY OF PRESENT ILLNESS: This is an 86-year-old female who had a recent admission to [facility] on August 31 of this year secondary to GI bleed. It should be noted that during that admission, she had an EGD, which showed esophagitis. The patient was discharged home on an appropriate regimen of Protonix and Carafate and was doing well. The patient represented to [facility] yesterday secondary to worsening shortness of breath. When I questioned the patient, she said that she did note some worsening shortness of breath over the past week. She denies any fevers, shakes or chills. Concerning other symptomatology, she denies any falls or head injury. She denies any visual changes, tinnitus or sore throat. No neck pain or chest pain was reported. She is short of breath sometimes at rest. She denies any abdominal pain, nausea, vomiting or diarrhea. No myalgias are noted. She has no history of DVT or PE. She does have a history of stroke with no residual deficits. Since admission to the hospital, the patient had a chest x-ray performed, which showed that the patient had a small right pleural effusion. A CT scan of the chest also showed a small right pleural effusion with no evidence of PE. A chest ultrasound was performed that showed that the patient did have a small to moderate right pleural effusion with an estimated volume of 332 mL; however, there was insufficient window for thoracentesis. We have been asked to comment on this patient for her pleural effusion. At the present time, she is resting comfortably in bed without chest pain. She notes that her shortness of breath has markedly improved. PAST MEDICAL HISTORY: Includes, 1. GERD. 2. Coronary artery disease. 3. Paroxysmal atrial fibrillation. 4. Esophagitis/GI bleed. 5. Stroke. 6. Diverticular disease. PAST SURGICAL HISTORY: Includes, 1. Coronary bypass grafting. 2. Partial colectomy with colostomy, which has subsequently been reversed. 3. Thyroidectomy. 4. Right carotid endarterectomy. 5. EGD as noted above. SOCIAL HISTORY: Lifetime nonsmoker. FAMILY HISTORY: Positive for coronary artery disease. ALLERGIES: INCLUDE LIPITOR, ZETIA, MORPHINE AND PENICILLIN. OUTPATIENT MEDICATION REGIMEN: Includes the followin. Atenolol 12.5 mg twice daily. 2. Vitamin D3 at 1000 units daily. 3. Desonide twice daily. 4. Colace 100 mg twice daily as needed. 5. Doxycycline 100 mg daily. 6. Synthroid 125 mcg daily. 7. Metronidazole topically daily. 8. Multivitamin daily. 9. Sublingual nitroglycerin as needed. 10. Protonix 40 mg daily. 11. Carafate twice daily. PHYSICAL EXAMINATION: Physical exam is as follows. VITAL SIGNS: The patient is afebrile with a temperature of 36.7, pulse 66 and regular, respirations are 18 and unlabored, blood pressure 138/68, and pulse ox 99% on room air. SKIN: Warm with good turgor. GENERAL: She is alert. She is oriented x3. She is in no distress. HEENT: Head is atraumatic and normocephalic. EYES: Pupils are equal, round and reactive to light and accommodation. Extraocular motions are intact. EARS: Auditory acuity is grossly intact. NOSE: Nasal patency was intact. Sinuses are nontender. MOUTH: Moist without exudates. NECK: Supple. There is no JVD. CARDIOVASCULAR: Regular rate and rhythm. LUNGS: Revealed no use of accessory muscles. The patient did have some decreased breath sounds at the right base. There is no wheezing or rhonchi noted. ABDOMEN: Soft, nontender, and nondistended. EXTREMITIES: Revealed no cyanosis or clubbing. She had trace lower extremity edema. NEUROLOGIC: Revealed no focal deficits. DIAGNOSTIC DATA: In addition to what is noted above, a CBC most recently today revealed a white blood cell count and platelet count were normal. Hemoglobin and hematocrit are 10.0 and 28.6. Chemistry profile showed sodium is 135. Potassium, BUN and creatinine were all within normal range. Serial cardiac enzymes have been negative for elevation and ProBNP had a slight elevation at 2243. Her INR is noted to be 1.1. Urinalysis is negative for infection. IMPRESSION: An 86-year-old female with shortness of breath. PLAN: The patient's shortness of breath may be multifactorial. She does have a small right pleural effusion; however, given the small nature of her pleural effusion and the fact that she is saturating well on room air, I would not like to perform a thoracentesis at this time due to the small nature of the pleural effusion. We will continue to monitor her and if it does increase in size, we will consider thoracentesis at that time. She does have a history of type 2 diastolic dysfunction on most recent echo from September 01 of this year that showed 70% ejection fraction. I did discuss with the nurse at the bedside that she did receive Lasix and she has marked improvement of her symptomatology. DIANA
--- NOTE | 2016-09-04 12:02 | Progress Note ---
Subjective Date of Service: Sep 04, 2016. Subjective Pt evaluation today including: conversation w/ patient, physical exam, chart review no SoB at rest. Oxygen sats are ok on RA Problem List Medical Problems: (1) Anemia Status: Acute (2) GI bleed Status: Acute (3) Pneumonia Status: Acute (4) SOB (shortness of breath) Status: Acute Review of Systems Respiratory: No cough, No dyspnea at rest, No dyspnea on exertion, No hemoptysis, No problem reported, No see HPI, No shortness of breath, No sputum, No wheezing Cardiac: No PND, No chest pain, No claudication, No edema, No orthopnea, No palpitations, No problem reported, No see HPI Abdomen: No GI bleeding, No constipation, No diarrhea, No nausea, No pain, No problem reported, No see HPI, No vomiting Medications Medications (Trade) Dose Ordered Sig/[place] Route Start Time Stop Time Status Last Admin Dose Admin Sodium Chloride (Nss 1000ml) 250 ml @ 999 mls/hr Q16M STAT IV 09/03/16 12:13 09/03/16 12:28 DC 09/03/16 12:13 999 MLS/HR Furosemide (Lasix Inj) 20 mg NOW STAT IV 09/03/16 14:00 09/03/16 14:02 DC 09/03/16 14:52 20 MG Levofloxacin (Levaquin / D5W) 750 mg NOW STAT IV 09/03/16 14:00 09/03/16 14:02 DC 09/03/16 14:53 750 MG Acetaminophen (Tylenol Tab) 650 mg Q4H PRN PO 09/03/16 14:45 10/03/16 14:44 09/04/16 04:17 650 MG Atenolol (Tenormin Tab) 12.5 mg BID PO 09/03/16 21:00 10/03/16 20:59 09/03/16 20:43 12.5 MG Levothyroxine Sodium (Synthroid Tab) 125 mcg DAILYBB PO 09/04/16 06:00 10/04/16 06:59 09/04/16 06:13 125 MCG Sucralfate (Carafate Susp) 1 gm BID@0700,1615 PO 09/03/16 16:15 10/03/16 16:14 09/03/16 17:29 1 GM Heparin Sodium (Porcine) (Heparin Sq 5000 Unit/0.5ml) 5,000 unit Q12 SQ 09/03/16 21:00 10/03/16 20:59 09/03/16 21:11 5,000 UNIT Objective Vital Signs Date Time Temp Pulse Resp B/P Pulse Ox O2 Delivery O2 Flow Rate FiO2 09/04/16 07:05 36.7 66 18 138/68 99 Nasal Cannula 2.0 09/04/16 04:13 36.9 66 19 143/57 98 Nasal Cannula 2.0 09/04/16 04:00 Nasal Cannula 2.0 09/03/16 23:59 Nasal Cannula 2.0 09/03/16 23:59 36.9 78 22 133/59 98 Nasal Cannula 2.0 09/03/16 20:00 Nasal Cannula 2.0 09/03/16 19:33 36.5 67 22 147/66 98 Nasal Cannula 2.0 09/03/16 16:00 36.5 67 18 178/70 98 Room Air 09/03/16 15:03 72 18 172/82 98 Room Air 09/03/16 12:43 97 Room Air 09/03/16 12:39 61 24 155/60 97 Room Air 63 165/65 71 166/86 09/03/16 12:34 62 09/03/16 11:54 36.5 65 18 146/73 98 Room Air Physical Exam General Appearance: WD/WN Eyes: normal inspection ENT: normal ENT inspection Neck: supple, no JVD Respiratory/Chest: chest non-tender, lungs clear Cardiovascular: regular rate, rhythm, no edema, no gallop, no JVD, no murmur Abdomen: normal bowel sounds, non tender, soft, no organomegaly Extremities: normal range of motion, non-tender, normal inspection Neurologic/Psychiatric: traffic [place] II-XII nml as tested, oriented x 3 Skin: normal color Laboratory Results Last 24 Hours Test 09/03/16 12:35 09/03/16 15:17 09/03/16 20:20 09/04/16 04:30 White Blood Count 10.45 K/uL Red Blood Count 3.29 M/uL Hemoglobin 9.6 g/dL Hematocrit 27.9 % Mean Corpuscular Volume 84.8 fL Mean Corpuscular Hemoglobin 29.2 pg Mean Corpuscular Hemoglobin Concent 34.4 g/dl Platelet Count 382 K/uL Mean Platelet Volume 10.2 fL Neutrophils (%) (Auto) 76.7 % Lymphocytes (%) (Auto) 11.4 % Monocytes (%) (Auto) 9.8 % Eosinophils (%) (Auto) 1.4 % Basophils (%) (Auto) 0.4 % Neutrophils # (Auto) 8.02 K/uL Lymphocytes # (Auto) 1.19 K/uL Monocytes # (Auto) 1.02 K/uL Eosinophils # (Auto) 0.15 K/uL Basophils # (Auto) 0.04 K/uL RDW Standard Deviation 46.9 fL RDW Coefficient of Variation 15.1 % Immature Granulocyte % (Auto) 0.3 % Immature Granulocyte # (Auto) 0.03 K/uL Prothrombin Time 11.3 SECONDS Prothromb Time International Ratio 1.1 Activated Partial Thromboplast Time 26.6 SECONDS Partial Thromboplastin Ratio 1.0 D-Dimer 1090 ug/L FEU Sodium Level 133 mmol/L Potassium Level 4.6 mmol/L Chloride Level 100 mmol/L Carbon Dioxide Level 26 mmol/L Anion Gap 7.0 mmol/L Blood Urea Nitrogen 18 mg/dl Creatinine 1.10 mg/dl Est Creatinine Clear Calc Drug Dose 33.6 ml/min Estimated GFR () 53.0 Estimated GFR (Non- 45.7 BUN/Creatinine Ratio 16.3 Random Glucose 81 mg/dl Calcium Level 8.9 mg/dl Total Bilirubin 0.4 mg/dl Aspartate Amino Transf (AST/SGOT) 18 U/L Alanine Aminotransferase (ALT/SGPT) 19 U/L Alkaline Phosphatase 89 U/L Troponin I < 0.015 ng/ml < 0.015 ng/ml Pro-B-Type Natriuretic Peptide 2243 pg/ml Total Protein 6.4 gm/dl Albumin 2.8 gm/dl Globulin 3.6 gm/dl Albumin/Globulin Ratio 0.8 Urine Color YELLOW Urine Appearance CLEAR Urine pH 7.0 Urine Specific [place] 1.007 Urine Protein NEG Urine Glucose (UA) NEG Urine Ketones NEG Urine Occult Blood TRACE Urine Nitrite NEG Urine Bilirubin NEG Urine Urobilinogen NEG Urine Leukocyte Esterase NEG Urine WBC (Auto) 1-5 /hpf Urine RBC (Auto) 0-4 /hpf Urine Hyaline Casts (Auto) 0 /lpf Urine Epithelial Cells (Auto) 0-5 /lpf Urine Bacteria (Auto) NEG Creatine Kinase MB 2.6 ng/ml Creatine Kinase MB Ratio Test 09/04/16 04:40 White Blood Count 10.13 K/uL Red Blood Count 3.35 M/uL Hemoglobin 10.0 g/dL Hematocrit 28.6 % Mean Corpuscular Volume 85.4 fL Mean Corpuscular Hemoglobin 29.9 pg Mean Corpuscular Hemoglobin Concent 35.0 g/dl RDW Standard Deviation 47.5 fL RDW Coefficient of Variation 15.3 % Platelet Count 384 K/uL Mean Platelet Volume 10.6 fL Sodium Level 135 mmol/L Potassium Level 3.8 mmol/L Chloride Level 100 mmol/L Carbon Dioxide Level 29 mmol/L Anion Gap 6.0 mmol/L Blood Urea Nitrogen 15 mg/dl Creatinine 1.20 mg/dl Est Creatinine Clear Calc Drug Dose 30.8 ml/min Estimated GFR () 47.7 Estimated GFR (Non- 41.2 BUN/Creatinine Ratio 12.7 Random Glucose 96 mg/dl Calcium Level 8.8 mg/dl Creatine Kinase MB 1.9 ng/ml Troponin I < 0.015 ng/ml Assessment and Plan 86 y/o female, with PMHx of CAD s/p 2 vessel CABG in 1999 followed by 2 stents to the right coronary artery in 2010, carotid artery stenosis, hypothyroidism, hypertension, paroxysmal A. fib, history of CVA without residual deficits, GERD , chronic constipation, rosacea, and diverticulitis, who presented to the ED because of SOB x1 day. SOB, ?secondary to PE vs CHF vs PNA: - Admit to tele for cardiac monitoring - Trend cardiac enzymes- initial trop negative - D-dimer elevated at 1090--> obtain CT of chest .> Neg for PE. - ?Hospital-acquired PNA w/ bibasilar infiltrative changes on CXR vs CHF w/ elevated BNP at 2243 (no previous records to compare) -- IV Levaquin x1 dose given in ED + IV 20 mg Lasix x1 dose given in ED--> will hold on further Lasix/antibiotic at this time pending CT of chest CAD s/p 2 vessel CABG in 1999 followed by 2 stents to the right coronary artery in 2010, carotid artery stenosis, a.fib: - Continue Atenolol 12.5 mg daily - ECHO on 08/31- EF of 65-70%, LVH, diastolic dysfunction, mild MF, mild TR, mild pulmonic valvular regurgitation Mild hyponatremia, baseline 133-15- stable: - Hold on IVF at this time due to IV Lasix treatment in ED. Reassess need for IVF tomorrow AM Hypothyroidism: - Continue Synthroid 125 daily - TSH 0.396 on 06/16/16 h/o CVA: Plavix and ASA was discontinued on last admission (08/31) due to GI bleed Suspected GI bleed (admission on 08/31): - hgb stable - Follow CBC - EGD on 09/01 reporting esophagitis- Continue Carafate and Protonix Right sided rib fractures s/p fall on 08/31: - Continue Tylenol PRN for pain management (patient states pain is well controlled w/ Tylenol and does not want anything else) - PT/OT Rosacea: - Continue topical Metronidazole - Continue Doxycycline 100 mg daily--> pt cannot state why she is on this medications and I cannot find anything in the records, ?for rosacea treatment GERD: Continue Protonix GI Prophylaxis: Maalox PRN, IV Zofran PRN, Colace and/or Milk of Mag PRN DVT prophylaxis: held DVT prophylaxis at this time due to recent GI bleed w/ ? of PE and/or lower extremity DVT Code Status: LEVEL V, DNR Dispo: From home, lives alone
[2016-09-05] MEDS: ACETAMINOPHEN 325 MG TAB PO PRN ×3 (03:42→14:18)
[2016-09-05 03:48] VITALS: BP 175/65; PULSE 66; TEMP 36.8; O2SAT 95
[2016-09-05 04:00] VITALS: O2SAT 96
[2016-09-05 04:39] VITALS: BP 157/65
[2016-09-05] MEDS: LEVOTHYROXINE 125 MCG TAB PO SCH (05:14)
--- NOTE | 2016-09-05 07:21 | Clinical Documentation Query ---
QUERY 1 OF [address] THORPE, In your clinical opinion is this patient being managed for: ( ) Acute diastolic CHF ( ) Other explanation of clinical findings (Please Explain) ( ) Unable to determine (Please Define) ( ) Need to Discuss ( ) Not Agree The medical record reflects the following clinical findings, treatment, and risk factors. Clinical Indicators: 86 yo female presented with dyspnea. BNP 2243, CXR with mild bibasilar interstitial infiltrative change and CT chest showed R pleural effusion. ER assessment indicates pt with bibasilar crackles. ECHO from prior admit showed EF 65-70% with grade II diastolic dysfunction Treatment: tele, IV lasix, chest CT, cardiac enzymes, thoracic surgery consult Risk Factors: age, CAD, HTN, PAF, CVA QUERY 2 OF 2 In your clinical opinion does this patient have: ( ) Chronic kidney disease, stage 3 ( ) Other explanation of clinical findings (Please Explain) ( ) Unable to determine (Please Define) ( ) Need to Discuss ( ) Not Agree The medical record reflects the following clinical findings, treatment, and risk factors. Clinical Indicators: Review of historical GFR showed range of 41.2-59.5 over the past 5 years Treatment: monitor PRP's Risk Factors: age, HTN, PAF, CAD, CVA The stages of CKD according to the [employer] are as follows: Stage I: GFR >90 Stage II: GFR 60-89 Stage III: GFR 30-59 Stage IV: GFR 15-29 Stage V: GFR <15 Please clarify and document your clinical opinion in the progress notes and discharge summary. Terms such as "probable", "suspected", "likely", "questionable", "possible", or "still to be ruled out" are acceptable. IF IN AGREEMENT, YOU MUST DOCUMENT ABOVE DIAGNOSTIC STATEMENT IN DAILY PROGRESS NOTES AND DISCHARGE SUMMARY. This document is not part of the patient's record. Thank You, Daksha Rashid, RN [phone]
[2016-09-05 07:49] LABS: HEMATOCRIT 30.5 % (37-47); MEAN CELL VOLUME 85.2 fL (80-100); MEAN CORPUSCULAR HEMOGLOBIN 29.1 pg (25-34); MEAN CORPUSCULAR HGB CONC 34.1 g/dl (32-36); MEAN PLATELET VOLUME 9.9 fL (7.4-10.4); PLATELET COUNT 397 K/uL (130-400); RED BLOOD COUNT 3.58 M/uL (4.2-5.4); WHITE BLOOD COUNT 9.33 K/uL (4.8-10.8)
--- NOTE | 2016-09-05 07:51 | Surgery Progress Note ---
Subjective Date of Service: Sep 05, 2016. Pt. notes her breathing continues to improve. Objective Vitals Date Time Temp Pulse Resp B/P Pulse Ox O2 Delivery O2 Flow Rate FiO2 09/05/16 04:39 157/65 09/05/16 04:00 96 Room Air 09/05/16 03:48 36.8 66 18 175/65 95 Room Air 09/04/16 23:59 96 Room Air 09/04/16 23:30 36.5 65 17 138/52 99 Room Air 09/04/16 20:00 96 Room Air 09/04/16 19:47 36.6 66 18 138/61 94 Room Air 09/04/16 16:00 95 Room Air 09/04/16 15:43 37.0 62 20 144/62 95 Room Air 09/04/16 13:48 66 96 09/04/16 12:00 Room Air Nasal Cannula 09/04/16 11:18 36.6 64 22 125/62 96 Room Air 09/04/16 08:00 Room Air Nasal Cannula Physical Exam General: + well developed, + well nourished, No distress Pulmonary: + pertinent finding (slight decrease at right base), No accessory muscle use, No respiratory distress Neurologic: + alert & oriented x 3 Assessment & Plan 86 year old female with right pleural effusion -pt. saturating well on room air -effusion noted to be small by US, so will not pursue thoracentesis -follow with serial CXR as well as clinically an intervene if needed
[2016-09-05 08:16] LABS: CALCIUM 9.2 mg/dl (8.5-10.1); CREATININE 1.1 mg/dl (0.60-1.20); POTASSIUM 4.1 mmol/L (3.5-5.1)
[2016-09-05] MEDS: HEPARIN SOD 5000 UNIT/0.5 ML CARP SQ SCH (08:33)
[2016-09-05] MEDS: DESONIDE CR 15 GM TUBE EXT SCH (08:34)
[2016-09-05] MEDS: SUCRALFATE 1 GM/10 ML UDC PO SCH (08:44)
[2016-09-05] MEDS: PANTOprazole SOD 40 MG TAB PO SCH (08:44)
[2016-09-05] MEDS: DOXYCYCLINE HYCLATE 100 MG CAP PO SCH (08:44)
[2016-09-05] MEDS: MULTIVITAMIN TAB PO SCH (08:44)
[2016-09-05] MEDS: CHOLECALCIFEROL 1000 INTER.UNIT TAB PO SCH (08:44)
[2016-09-05 08:58] VITALS: BP 148/58; PULSE 62; TEMP 36.5; O2SAT 100
--- NOTE | 2016-09-05 11:47 | Discharge Instructions ---
Discharge Instructions Date of Service Sep 05, 2016. Admission Reason for Admission: SOB Discharge Discharge Diagnosis / Problem: Shortness of breath Discharge Goals Goal(s): Decrease discomfort Activity Recommendations Activity Limitations: resume your previous activity Lifting Limitations: gradually increase as tolerated Exercise/Sports Limitations: gradually increase as tolerated Shower/Bathe: no limitations . Current Hospital Diet Patient's current hospital diet: AHA Diet (Heart Healthy) Discharge Diet Recommended Diet: AHA Diet (Heart Healthy) Pending Studies Studies pending at discharge: no Laboratory Results 09/05/16 07:35 09/05/16 07:35 Test 09/03/16 12:35 09/03/16 15:17 09/04/16 04:30 09/04/16 04:40 Immature Granulocyte % (Auto) 0.3 % White Blood Count 10.45 K/uL (4.8-10.8) Red Blood Count 3.29 M/uL (4.2-5.4) Hemoglobin 9.6 g/dL (12.0-16.0) Hematocrit 27.9 % (37-47) Mean Corpuscular Volume 84.8 fL (80-100) Mean Corpuscular Hemoglobin 29.2 pg (25-34) Mean Corpuscular Hemoglobin Concent 34.4 g/dl (32-36) Platelet Count 382 K/uL (130-400) Mean Platelet Volume 10.2 fL (7.4-10.4) Neutrophils (%) (Auto) 76.7 % Lymphocytes (%) (Auto) 11.4 % Monocytes (%) (Auto) 9.8 % Eosinophils (%) (Auto) 1.4 % Basophils (%) (Auto) 0.4 % Neutrophils # (Auto) 8.02 K/uL (1.4-6.5) Lymphocytes # (Auto) 1.19 K/uL (1.2-3.4) Monocytes # (Auto) 1.02 K/uL (0.11-0.59) Eosinophils # (Auto) 0.15 K/uL (0-0.5) Basophils # (Auto) 0.04 K/uL (0-0.2) Immature Granulocyte # (Auto) 0.03 K/uL (0.00-0.02) Prothrombin Time 11.3 SECONDS (9.0-12.0) Prothromb Time International Ratio 1.1 (0.9-1.1) Activated Partial Thromboplast Time 26.6 SECONDS (21.0-31.0) Partial Thromboplastin Ratio 1.0 D-Dimer 1090 ug/L FEU (0-500) Total Bilirubin 0.4 mg/dl (0.2-1) Aspartate Amino Transf (AST/SGOT) 18 U/L (15-37) Alanine Aminotransferase (ALT/SGPT) 19 U/L (12-78) Alkaline Phosphatase 89 U/L (45-117) Pro-B-Type Natriuretic Peptide 2243 pg/ml (0-1800) Total Protein 6.4 gm/dl (6.4-8.2) Albumin 2.8 gm/dl (3.4-5.0) Globulin 3.6 gm/dl (2.5-4.0) Albumin/Globulin Ratio 0.8 (0.9-2) Urine Color YELLOW Urine Appearance CLEAR (CLEAR) Urine pH 7.0 (4.5-7.5) Urine Specific [place] 1.007 (1.000-1.030) Urine Protein NEG (NEG) Urine Glucose (UA) NEG (NEG) Urine Ketones NEG (NEG) Urine Occult Blood TRACE (NEG) Urine Nitrite NEG (NEG) Urine Bilirubin NEG (NEG) Urine Urobilinogen NEG (NEG) Urine Leukocyte Esterase NEG (NEG) Urine WBC (Auto) 1-5 /hpf (0-5) Urine RBC (Auto) 0-4 /hpf (0-4) Urine Hyaline Casts (Auto) 0 /lpf (0-5) Urine Epithelial Cells (Auto) 0-5 /lpf (0-5) Urine Bacteria (Auto) NEG (NEG) Creatine Kinase MB Ratio (0-3.0) Creatine Kinase MB 1.9 ng/ml (0.5-3.6) Troponin I < 0.015 ng/ml (0-0.045) Test 09/05/16 07:35 Red Blood Count 3.58 M/uL (4.2-5.4) Mean Corpuscular Volume 85.2 fL (80-100) Mean Corpuscular Hemoglobin 29.1 pg (25-34) Mean Corpuscular Hemoglobin Concent 34.1 g/dl (32-36) RDW Standard Deviation 47.2 fL (36.4-46.3) RDW Coefficient of Variation 15.1 % (11.5-14.5) Mean Platelet Volume 9.9 fL (7.4-10.4) Anion Gap 6.0 mmol/L (3-11) Est Creatinine Clear Calc Drug Dose 33.6 ml/min Estimated GFR () 53.0 Estimated GFR (Non- 45.7 BUN/Creatinine Ratio 16.0 (10-20) Calcium Level 9.2 mg/dl (8.5-10.1) Date/Time Source Procedure Growth Status 09/03/16 13:53 Blood Blood Culture - Preliminary NO GROWTH TO DATE. Resulted Medical Emergencies . Who to Call and When: Medical Emergencies: If at any time you feel your situation is an emergency, please call 911 immediately. . Non-Emergent Contact Non-Emergency issues call your: Primary Care Provider Call Non-Emergent contact if: you have a fever . Past History Medical & Surgical History: (1) Hypertension (2) Gastrointestinal bleed (3) Anemia (4) Coronary artery disease (5) HTN (hypertension) (6) Hypothyroidism . "Provider Documentation" section prepared by Jessica Fabian. VTE Core Measure Inpt VTE Proph given/why not?: SCD's
--- NOTE | 2016-09-05 11:49 | Discharge Summary ---
Discharge Summary Date of Service Sep 05, 2016. Discharge Summary Admission Date: Sep 04, 2016 at 12:03 Discharge Disposition: Home Principal Diagnosis: Shortness of breath Problems/Secondary Diagnoses: Pleural effusion. CAD, HTN, Hypothyroid Immunizations: Have You Had Influenza Vaccine: Yes History of Tetanus Vaccine?: Yes History of Pneumococcal: Yes History of Hepatitis B Vaccine: No Consultations: Thoracic Surgery Medication Reconciliation Continued Medications: Atenolol (Tenormin) 25 Mg Tab 12.5 MG PO BID, TAB Cholecalciferol (Vitamin D3) 1,000 Unit Tab 1 TAB PO DAILY for 30 Days, #30 TAB 5 Refills Desonide 0.05% (Desowen 0.05%) 60 Gm Cr 1 APPLN TOP BID for 14 Days, #60 GM Docusate Sodium (Stool Softener) 100 Mg Cap 100 MG PO BID PRN for Constipation Doxycycline (Monohydrate) (Doxycycline) 100 Mg Cap 1 CAP PO DAILY Levothyroxine Sodium (Synthroid) 125 Mcg Tab 125 MCG PO DAILY, TAB Metronidazole (Topical) (Metronidazole) 1 % Gel 1 APPLN TOP DAILY, #60 Multivitamin (Multivitamin) Tab 1 TAB PO DAILY Nitroglycerin (Nitrostat) 0.4 Mg Sub 0.4 MG UT PRN, BTL Pantoprazole (Protonix) 40 Mg Tab 40 MG PO DAILY, #30 Sucralfate (Sucralfate) 1 Gm/10 Ml Susp 1 GM PO BID@0700,1615 for 14 Days Discharge Exam Physical Exam: General Appearance: WD/WN, no apparent distress Eyes: normal inspection, PERRL ENT: normal ENT inspection, hearing grossly normal Neck: supple, no adenopathy, no JVD Respiratory/Chest: chest non-tender, lungs clear Cardiovascular: regular rate, rhythm, no edema, no JVD, no murmur Abdomen / GI: normal bowel sounds, non tender, soft Extremities: normal inspection Neurologic/Psychiatric: [place] II-XII nml as tested, oriented x 3 Skin: normal color Hospital Course 86 y/o female, with PMHx of CAD s/p 2 vessel CABG in 1999 followed by 2 stents to the right coronary artery in 2010, carotid artery stenosis, hypothyroidism, hypertension, paroxysmal A. fib, history of CVA without residual deficits, GERD , chronic constipation, rosacea, and diverticulitis, who presented to the ED because of SOB x1 day. SOB, ?secondary to PE vs CHF vs PNA: - Admit to tele for cardiac monitoring - Trend cardiac enzymes- initial trop negative - D-dimer elevated at 1090--> obtain CT of chest .> Neg for PE. - ?Hospital-acquired PNA w/ bibasilar infiltrative changes on CXR vs CHF w/ elevated BNP at 2243 (no previous records to compare) -- IV Levaquin x1 dose given in ED + IV 20 mg Lasix x1 dose given in ED- - CT chest negative for PE or consolidation CAD s/p 2 vessel CABG in 1999 followed by 2 stents to the right coronary artery in 2010, carotid artery stenosis, a.fib: - Continue Atenolol 12.5 mg daily - ECHO on 08/31- EF of 65-70%, LVH, diastolic dysfunction, mild MF, mild TR, mild pulmonic valvular regurgitation Mild hyponatremia, baseline 133-15- stable: - Hold on IVF at this time due to IV Lasix treatment in ED. Reassess need for IVF tomorrow AM Hypothyroidism: - Continue Synthroid 125 daily - TSH 0.396 on 06/16/16 h/o CVA: Plavix and ASA was discontinued on last admission (08/31) due to GI bleed Suspected GI bleed (admission on 08/31): - hgb stable - Follow CBC - EGD on 09/01 reporting esophagitis- Continue Carafate and Protonix Right sided rib fractures s/p fall on 08/31: - Continue Tylenol PRN for pain management (patient states pain is well controlled w/ Tylenol and does not want anything else) - PT/OT Rosacea: - Continue topical Metronidazole - Continue Doxycycline 100 mg daily--> pt cannot state why she is on this medications and I cannot find anything in the records, ?for rosacea treatment GERD: Continue Protonix GI Prophylaxis: Maalox PRN, IV Zofran PRN, Colace and/or Milk of Mag PRN DVT prophylaxis: held DVT prophylaxis at this time due to recent GI bleed w/ ? of PE and/or lower extremity DVT Code Status: LEVEL V, DNR Dispo: From home, lives alone Total Time Spent: Greater than 30 minutes This includes examination of the patient, discharge planning, medication reconciliation, and communication with other providers. Discharge Instructions Please refer to the electronic Patient Visit Report (Discharge Instructions) for additional information. Follow-Up PCP in one to two weeks.
[2016-09-05 12:13] VITALS: BP 148/58; PULSE 62; TEMP 36.5; O2SAT 100
[2016-09-05 12:17] VITALS: BP 146/66; PULSE 55; TEMP 36.7; O2SAT 98
[2016-09-24] MEDS ORDERED: POLY335019 PO (12:31)
[2016-09-25] MEDS ORDERED: MOML PO (10:15)
[2017-03-22] MEDS ORDERED: CEPH500C PO (15:39)
[2017-03-22] MEDS ORDERED: CRD200 PO (15:39)
[2017-03-22] MEDS ORDERED: LEVO137T3 PO (15:39)
== END 2016-09-05 14:42 | disposition home health service (06) | DRG 204 ==
LOC: ENRESERVDT → ENRESERVTM → C.EDB 11:54 → C.2T 14:49 → OBSVTOIN 09-04 12:03
PROVIDERS: ADMIT Internal Medicine; ATTEND Internal Medicine
DX: R06.02 Shortness of breath (principal); J18.9 Pneumonia, unspecified organism; K57.92 Diverticulitis of intestine, part unspecified, without perforation or abscess without bleeding; E87.1 Hypo-osmolality and hyponatremia; Z93.3 Colostomy status; I25.10 Atherosclerotic heart disease of native coronary artery without angina pectoris; Z95.1 Presence of aortocoronary bypass graft; Z95.5 Presence of coronary angioplasty implant and graft; E03.9 Hypothyroidism, unspecified; I48.0 Paroxysmal atrial fibrillation; Z86.73 Personal history of transient ischemic attack (TIA), and cerebral infarction without residual deficits; I10 Essential (primary) hypertension; K21.0 Gastro-esophageal reflux disease with esophagitis; K59.00 Constipation, unspecified; L71.9 Rosacea, unspecified; Z87.19 Personal history of other diseases of the digestive system; Z80.9 Family history of malignant neoplasm, unspecified; Z82.49 Family history of ischemic heart disease and other diseases of the circulatory system; Z88.8 Allergy status to other drugs, medicaments and biological substances; Z88.5 Allergy status to narcotic agent; Z88.0 Allergy status to penicillin; Z79.899 Other long term (current) drug therapy; Z98.1 Arthrodesis status; Z66 Do not resuscitate; Z90.49 Acquired absence of other specified parts of digestive tract; E89.0 Postprocedural hypothyroidism; I50.9 Heart failure, unspecified

== ENCOUNTER → 2016-09-16 | Outpatient (CLI) | payer OTHER ==
[~2016-09-16] MED LIST changes: +ACET-1311 PO; +BENZ10LO2 PO; +CEPH500C PO; +CLON0.1T12 PO; +CRD200 PO; +FERR1TAB13 PO; +LEVO137T3 PO; +LEVO150T9 PO; +MAGNSUS73 PO; +MIDODRINE PO; +MOML PO; +MoRPHine SULFATE 2 MG/ML CARP ONE; +POLY335019 PO; +POLY99.02 OPB; +SENN8.6T9 PO; +SODI1TAB PO; +SODIENE PR; +SYN150 PO
--- NOTE | 2016-09-16 14:58 | DIAGNOSTIC IMAGING REPORT ---
CHEST 2 VIEWS ROUTINE CLINICAL HISTORY: J90 Pleural effusion on right dyspnea COMPARISON STUDY: 09/03/2016 FINDINGS: Improved exam. No significant pleural effusion the current study. Lungs are considered clear. Prior median sternotomy. No associated infiltrate. IMPRESSION: No acute process of the chest. Improved from the prior exam. Electronically signed by: Freddy Sherman M.D. 09/16/2016 2:56 PM Dictated Date/Time: 09/16/2016 2:55 PM
== END | disposition home or self-care (01) ==
LOC: C.RAD1850 14:22
PROVIDERS: ATTEND Surgery
DX: J90 Pleural effusion, not elsewhere classified (principal)

== ENCOUNTER → 2016-09-16 | Outpatient (CLI) | payer OTHER ==
[~2016-09-16] MED LIST changes: -MoRPHine SULFATE 2 MG/ML CARP ONE
[2016-09-16 14:39] LABS: BASO % 0.7 %; BASO ABS # 0.06 K/uL (0-0.2); COMPLETE YES; EOS % 2.7 %; HEMATOCRIT 29.2 % (37-47); IG% 0.2 %; LYMPH % 20.9 %; LYMPH ABS # 1.79 K/uL (1.2-3.4); MEAN CELL VOLUME 86.4 fL (80-100); MEAN CORPUSCULAR HEMOGLOBIN 28.7 pg (25-34); MEAN CORPUSCULAR HGB CONC 33.2 g/dl (32-36); MEAN PLATELET VOLUME 9.5 fL (7.4-10.4); MONO % 14.1 %; NEUT % 61.4 %; PLATELET COUNT 322 K/uL (130-400); RED BLOOD COUNT 3.38 M/uL (4.2-5.4); WHITE BLOOD COUNT 8.58 K/uL (4.8-10.8)
[2016-09-16 15:33] LABS: ALB/GLOB RATIO 0.8 (0.9-2); ALKALINE PHOSPHATASE 174 U/L (45-117); ALT/SGPT 31 U/L (12-78); AST/SGOT 17 U/L (15-37); BLOOD UREA NITROGEN 23 mg/dl (7-18); CALCIUM 9.5 mg/dl (8.5-10.1); CARBON DIOXIDE 30 mmol/L (21-32); CHLORIDE 97 mmol/L (98-107); GLUCOSE 108 mg/dl (70-99); POTASSIUM 5.2 mmol/L (3.5-5.1); SODIUM 132 mmol/L (136-145)
== END | disposition home or self-care (01) ==
LOC: C.LAB1850 14:04
PROVIDERS: ATTEND Physician Assistant
DX: R06.02 Shortness of breath (principal)

== ENCOUNTER 2016-09-19 16:46 | Inpatient (IN) | payer OTHER ==
[~2016-09-19] VITALS: Ht 165.1 cm; Wt 56.6 kg
[~2016-09-19 16:46] MED LIST changes: -ACET-1311 PO; -BENZ10LO2 PO; -CEPH500C PO; -CLON0.1T12 PO; -CRD200 PO; -FERR1TAB13 PO; -LEVO137T3 PO; -LEVO150T9 PO; -MAGNSUS73 PO; -MIDODRINE PO; -MOML PO; -POLY335019 PO; -POLY99.02 OPB; -SENN8.6T9 PO; -SODI1TAB PO; -SODIENE PR; -SYN150 PO
[2016-09-19] MEDS ORDERED: SODIUM CHLORIDE 0.9% 1000ML 250 ML IV STA (17:50)
[2016-09-19] MEDS ORDERED: SODIUM CHLORIDE 0.9% 1000ML 1,000 ML IV STA (17:50)
--- NOTE | 2016-09-19 17:57 | EMERGENCY ROOM VISIT NOTE ---
History Report prepared by [place]: Albert Alcantar Under the Supervision of: Dr. Abel Ferraro M.D. First contact with patient: 17:45 Chief Complaint: SHORTNESS OF BREATH Stated Complaint: SOB, LOW BP, DIZZY Nursing Triage Summary: SOB, dizziness History of Present Illness The patient is a 86 year old female who presents to the Emergency Room with complaints of intermittent dizziness starting this morning. The patient's blood pressure has been fluctuating today. She has been having dizziness with low blood pressure. She also complains of shortness of breath and a mild cough. She was recently diagnosed with pneumonia. She denies fevers, chills, nausea, vomiting, abdominal pain, lower extremity pain/swelling, or any other complaints. She denies any history of CHF. No blood or melena in her stool. No fall or trauma. Source of History: patient, family Onset: this morning Position: other (global) Quality: other (dizziness) Timing: intermittent Associated Symptoms: + SOB, + cough, No abdominal pain, No chills, No fevers , No nausea, No vomiting Review of Systems See HPI for pertinent positives & negatives. A total of 10 systems reviewed and were otherwise negative. Past Medical & Surgical Medical Problems: (1) Acid reflux (2) Anemia (3) Coronary artery disease (4) Gastrointestinal bleed (5) HTN (hypertension) (6) Hypothyroidism (7) Myocardial infarction (8) Vertigo Surgical Problems: (1) Hx of CABG Old medical records were reviewed. Nurse's notes were reviewed and I agree with. She was just admitted the hospital not long ago after having GI bleed related to esophagitis Family History Cancer Heart disease Social History Smoking Status: Never Smoker Alcohol Use: none Drug Use: none Marital Status: Housing Status: lives alone Occupation Status: retired Current/Historical Medications Scheduled Atenolol (Tenormin), 12.5 MG PO BID Cholecalciferol (Vitamin D3), 1 TAB PO DAILY Desonide 0.05% (Desowen 0.05%), 1 APPLN TOP BID Doxycycline (Monohydrate) (Doxycycline), 1 CAP PO DAILY Levothyroxine Sodium (Synthroid), 125 MCG PO DAILY Metronidazole (Topical) (Metronidazole), 1 APPLN TOP DAILY Multivitamin (Multivitamin), 1 TAB PO DAILY Nitroglycerin (Nitrostat), 0.4 MG UT PRN Pantoprazole (Protonix), 40 MG PO DAILY Sucralfate (Sucralfate), 1 GM PO BID@0700,1615 Scheduled PRN Docusate Sodium (Stool Softener), 100 MG PO BID PRN for Constipation Allergies Coded Allergies: Morphine (Verified Allergy, Mild, Itching, 09/19/16) and erythema at site of injection Penicillins (Verified Allergy, Unknown, 09/19/16) Atorvastatin (Verified Adverse Reaction, Unknown, 09/19/16) Ezetimibe (Verified Adverse Reaction, Unknown, 09/19/16) Physical Exam Vital Signs Date Time Temp Pulse Resp B/P Pulse Ox O2 Delivery O2 Flow Rate FiO2 09/19/16 22:16 70 22 98 09/19/16 22:04 71 09/19/16 22:00 169/76 09/19/16 21:46 73 15 94 09/19/16 21:44 171/78 09/19/16 21:30 167/76 09/19/16 21:16 69 15 96 09/19/16 21:10 187/79 09/19/16 21:09 192/107 09/19/16 21:09 70 20 187/79 97 Room Air 09/19/16 20:37 72 186/81 74 168/119 76 183/72 09/19/16 20:33 183/72 09/19/16 20:32 168/119 09/19/16 20:30 186/81 09/19/16 18:46 68 19 99 09/19/16 18:35 72 09/19/16 18:30 155/79 09/19/16 18:29 68 16 168/82 100 Room Air 09/19/16 17:01 Room Air 09/19/16 16:57 36.9 65 16 179/73 95 Room Air Physical Exam General: Non-ill appearing, older female, in no acute distress. HEENT: Normal cephalic atraumatic. Pupils are equal round and reactive to light. Sclerae anicteric. Extraocular movements are intact. Oropharynx is pink with moist mucous membranes. No swelling of the mouth lips or tongue. Neck: Supple with a midline trachea. No meningeal signs or stiffness, no JVD or bruits. No Stridor. Chest: Clear to auscultation bilaterally. No wheezes or rhonchi. No increased work of breathing. Heart: regular rate and rhythm. Abdomen: Soft nontender, nondistended without rebound guarding or rigidity. Extremities: No cyanosis clubbing or edema. No calf tenderness or assymetry Spine/Back. Non tender to palpation. No CVA tenderness Skin: Good turgor without rashes. Neurologic exam: Cranial nerves two through 12 are intact. Motor and sensation are intact and symmetrical throughout. Medical Decision & Procedures ER Provider Diagnostic Interpretation: X-ray results as stated below per interpretation by me and the radiologist: CHEST ONE VIEW PORTABLE CLINICAL HISTORY: CHEST PAIN pain COMPARISON STUDY: 09/16/2016 FINDINGS: Lungs are clear. Mild stable cardiomegaly. Diaphragms smooth. IMPRESSION: No acute process. Electronically signed by: Freddy Sherman M.D. 09/19/2016 6:17 PM Dictated Date/Time: 09/19/2016 6:17 PM Laboratory Results 09/19/16 18:08 Red Blood Count 3.35, Mean Corpuscular Volume 84.5, Mean Corpuscular Hemoglobin 28.4, Mean Corpuscular Hemoglobin Concent 33.6, Mean Platelet Volume 9.6, Neutrophils (%) (Auto) 50.3, Lymphocytes (%) (Auto) 28.4, Monocytes (%) (Auto) 16.7, Eosinophils (%) (Auto) 3.5, Basophils (%) (Auto) 0.9, Neutrophils # (Auto ) 3.29, Lymphocytes # (Auto) 1.86, Monocytes # (Auto) 1.09, Eosinophils # (Auto ) 0.23, Basophils # (Auto) 0.06 09/19/16 18:08 Test 09/19/16 18:07 09/19/16 18:08 Bedside Troponin I 0.000 ng/ml (0-0.045) DV-Bph-X-Type Natriuretic Peptide 894 pg/ml (0-1800) White Blood Count 6.54 K/uL (4.8-10.8) Red Blood Count 3.35 M/uL (4.2-5.4) Hemoglobin 9.5 g/dL (12.0-16.0) Hematocrit 28.3 % (37-47) Mean Corpuscular Volume 84.5 fL (80-100) Mean Corpuscular Hemoglobin 28.4 pg (25-34) Mean Corpuscular Hemoglobin Concent 33.6 g/dl (32-36) Platelet Count 285 K/uL (130-400) Mean Platelet Volume 9.6 fL (7.4-10.4) Neutrophils (%) (Auto) 50.3 % Lymphocytes (%) (Auto) 28.4 % Monocytes (%) (Auto) 16.7 % Eosinophils (%) (Auto) 3.5 % Basophils (%) (Auto) 0.9 % Neutrophils # (Auto) 3.29 K/uL (1.4-6.5) Lymphocytes # (Auto) 1.86 K/uL (1.2-3.4) Monocytes # (Auto) 1.09 K/uL (0.11-0.59) Eosinophils # (Auto) 0.23 K/uL (0-0.5) Basophils # (Auto) 0.06 K/uL (0-0.2) RDW Standard Deviation 45.1 fL (36.4-46.3) RDW Coefficient of Variation 14.6 % (11.5-14.5) Immature Granulocyte % (Auto) 0.2 % Immature Granulocyte # (Auto) 0.01 K/uL (0.00-0.02) Prothrombin Time 10.7 SECONDS (9.0-12.0) Prothromb Time International Ratio 1.0 (0.9-1.1) Activated Partial Thromboplast Time 22.6 SECONDS (21.0-31.0) Partial Thromboplastin Ratio 0.9 Anion Gap 4.0 mmol/L (3-11) Est Creatinine Clear Calc Drug Dose 33.6 ml/min Estimated GFR () 53.0 Estimated GFR (Non- 45.7 BUN/Creatinine Ratio 21.3 (10-20) Calcium Level 9.2 mg/dl (8.5-10.1) Total Bilirubin 0.2 mg/dl (0.2-1) Direct Bilirubin < 0.1 mg/dl (0-0.2) Aspartate Amino Transf (AST/SGOT) 16 U/L (15-37) Alanine Aminotransferase (ALT/SGPT) 27 U/L (12-78) Alkaline Phosphatase 150 U/L (45-117) Total Protein 7.0 gm/dl (6.4-8.2) Albumin 3.1 gm/dl (3.4-5.0) Lipase 221 U/L (73-393) Laboratory studies as stated above per my review. Medications Administered Medications (Trade) Dose Ordered Sig/[place] Route Start Time Stop Time Status Last Admin Dose Admin Sodium Chloride 250 ml @ 999 mls/hr Q16M STAT IV 09/19/16 17:50 09/19/16 18:05 DC 09/19/16 18:24 999 MLS/HR Sodium Chloride (Nss 1000ml) 1,000 ml @ 100 mls/hr Q10H STAT IV 09/19/16 17:50 09/19/16 23:28 DC 09/19/16 18:24 100 MLS/HR ECG Indication: other (Dizziness) Rate (beats per minute): 63 Rhythm: normal sinus Findings: no acute ischemic change, other (LVH) Comparison ECG Date: September 03, 2016 Change: no significant change ED Course 1744: Past medical records reviewed. The patient was evaluated in room C01B, and a complete history and physical examination were performed. 0: Sodium Chloride 1000 ml @ 100 mls/hr IV, Sodium Chloride 250 ml @ 999 mls/ hr IV 1934: I reevaluated the patient who is doing well. 2040: Upon reevaluation, the patient is resting comfortably. I discussed the results and treatment plan with the patient. She verbalized agreement of the treatment plan. The patient will be evaluated for further management. 2107: I discussed the patient's case with Dr. Summers, from [facility]. Medical Decision Differential diagnosis includes but is not limited to dehydration, CHF, acute coronary syndrome, rib facture, pneumothorax, electrolyte or metabolic abnormalities. This patient comes in as described above. She was placed in room C1. She is here for treatment and evaluation of dizziness and shortness of breath. She is found to be significant orthostatic at home and family is very concerned about her falling as was home nursing. They sent her here as they felt that she cannot be safely at home. She's been up here several times recently with pneumonia and esophagitis. IV access established hydrated gently with normal saline EKG chest x-ray head CT multiple blood testing was obtained. She has a normal neurologic exam and she has nothing to suggest cerebellar signs. Her CAT scan of her head is unremarkable. EKG does not suggest any acute ischemic changes or ectopy. Her troponin is not elevated. She has anemia which is baseline lately now at 9.1. She denies that she has been having blood or melena in her stool. We did check orthostatics here and she was not orthostatic. The patient does not feel that and she can go home. She this feels to weak and dizzy. I did consult Dr. Renner will admit her for further treatment and evaluation. Consults Time Called: [phone] Consulting Physician: Dr. Summers, from [facility] Returned Call: [phone] I discussed the patient's case with Dr. Summers, from [facility]. Impression Primary Impression: Weakness Additional Impression: Dizziness Scribe Attestation The scribe's documentation has been prepared under my direction and personally reviewed by me in its entirety. I confirm that the note above accurately reflects all work, treatment, procedures, and medical decision making performed by me. Departure Information Dispostion Being Evaluated By Hospitalist Referrals ,Kamlesh Armando M.D. (PCP) Patient Instructions My [facility] Problem Qualifiers
--- NOTE | 2016-09-19 18:19 | DIAGNOSTIC IMAGING REPORT ---
CHEST ONE VIEW PORTABLE CLINICAL HISTORY: CHEST PAIN pain COMPARISON STUDY: 09/16/2016 FINDINGS: Lungs are clear. Mild stable cardiomegaly. Diaphragms smooth. IMPRESSION: No acute process. Electronically signed by: Freddy Sherman M.D. 09/19/2016 6:17 PM Dictated Date/Time: 09/19/2016 6:17 PM
[2016-09-19 18:23] LABS: BASO % 0.9 %; BASO ABS # 0.06 K/uL (0-0.2); COMPLETE YES; EOS % 3.5 %; HEMATOCRIT 28.3 % (37-47); IG% 0.2 %; LYMPH % 28.4 %; LYMPH ABS # 1.86 K/uL (1.2-3.4); MEAN CELL VOLUME 84.5 fL (80-100); MEAN CORPUSCULAR HEMOGLOBIN 28.4 pg (25-34); MEAN CORPUSCULAR HGB CONC 33.6 g/dl (32-36); MEAN PLATELET VOLUME 9.6 fL (7.4-10.4); MONO % 16.7 %; NEUT % 50.3 %; PLATELET COUNT 285 K/uL (130-400); RED BLOOD COUNT 3.35 M/uL (4.2-5.4); WHITE BLOOD COUNT 6.54 K/uL (4.8-10.8)
[2016-09-19 18:33] LABS: PARTIAL THROMBOPLASTIN RATIO 0.9; PROTHROMBIN TIME (PATIENT) 10.7 SECONDS (9.0-12.0)
[2016-09-19 18:48] LABS: ALT/SGPT 27 U/L (12-78); AST/SGOT 16 U/L (15-37); BLOOD UREA NITROGEN 23 mg/dl (7-18); BUN/CREATININE RATIO 21.3 (10-20); CALCIUM 9.2 mg/dl (8.5-10.1); CARBON DIOXIDE 31 mmol/L (21-32); CHLORIDE 98 mmol/L (98-107); GLUCOSE 104 mg/dl (70-99); POTASSIUM 4.3 mmol/L (3.5-5.1); SODIUM 133 mmol/L (136-145)
[2016-09-19 18:53] LABS: ALKALINE PHOSPHATASE 150 U/L (45-117); CKMB/CK RATIO 7.5 (0-3.0)
[2016-09-19] MEDS ORDERED: LEVO150T9 PO (21:17)
[2016-09-19] MEDS ORDERED: NITROGLYCERIN 0.4 MG SL PER TAB CHARGE UT SCH (22:45)
[2016-09-19] MEDS ORDERED: DOCUSATE SODIUM 100 MG CAP PO PRN (22:45)
[2016-09-19] MEDS ORDERED: HydrALAZINE HCL 20 MG/ML VIAL IV. PRN (22:45)
[2016-09-19] MEDS ORDERED: ONDANSETRON INJ 2 MG/ML 2 ML VIAL IV PRN (22:45)
--- NOTE | 2016-09-19 22:52 | History and Physical ---
History & Physical Date & Time of Service: Sep 19, 2016 at 22:51 Chief Complaint: Sob, Low Bp, Dizzy Primary Care Physician: Kamlesh Mcduffie M.D. History of Present Illness Source: patient, family The patient is an 86-year-old female who presents to the emergency department with intermittent dizziness began the morning prior to arrival. Her blood pressure was checked by her physical therapist and reportedly was low, but when checked by her visiting nurse was elevated, and has remained elevated during the hospital stay in the emergency department. She reports a mild nonproductive cough, shortness of breath and feels generally weak. Past Medical/Surgical History Medical Problems: (1) Acid reflux Status: Chronic (2) Coronary artery disease Status: Chronic (3) HTN (hypertension) Status: Chronic (4) Hypothyroidism Status: Chronic (5) Myocardial infarction Status: Resolved (6) Vertigo Status: Chronic Surgical Problems: (1) Hx of CABG Status: Chronic Family History Cancer Heart disease Social History Smoking Status: Never Smoker Smokeless Tobacco Use: No Alcohol Use: none Drug Use: none Marital Status: Housing status: lives alone Occupational Status: retired Immunizations History of Influenza Vaccine: Yes History of Tetanus Vaccine?: Yes History of Pneumococcal: Yes History of Hepatitis B Vaccine: No Multi-Drug Resistant Organisms History of MDRO: No Allergies Coded Allergies: Morphine (Verified Allergy, Mild, Itching, 09/19/16) and erythema at site of injection Penicillins (Verified Allergy, Unknown, 09/19/16) Atorvastatin (Verified Adverse Reaction, Unknown, 09/19/16) Ezetimibe (Verified Adverse Reaction, Unknown, 09/19/16) Home Medications Scheduled Atenolol (Tenormin), 12.5 MG PO BID Cholecalciferol (Vitamin D3), 1 TAB PO DAILY Desonide 0.05% (Desowen 0.05%), 1 APPLN TOP BID Doxycycline (Monohydrate) (Doxycycline), 1 CAP PO DAILY Levothyroxine Sodium (Synthroid), 125 MCG PO DAILY Metronidazole (Topical) (Metronidazole), 1 APPLN TOP DAILY Multivitamin (Multivitamin), 1 TAB PO DAILY Nitroglycerin (Nitrostat), 0.4 MG UT PRN Pantoprazole (Protonix), 40 MG PO DAILY Sucralfate (Sucralfate), 1 GM PO BID@0700,1615 Scheduled PRN Docusate Sodium (Stool Softener), 100 MG PO BID PRN for Constipation Review of Systems The patient denies chest pain, palpitations, lower extremity swelling, vision change, hearing change, sore throat, fevers, chills, sweats, weight change, nausea, vomiting, abdominal pain, pelvic pain, blood in urine or stool, dysuria , urinary frequency or urgency, lightheadedness, dizziness, headache, rash, abnormal bruising or bleeding, focal or generalized weakness, numbness or tingling in arms or legs, back or neck pain, night sweats, or allergy symptoms. The review of systems is otherwise negative other than for that already noted above, and at least 10 systems have been reviewed. Physical Exam Vital Signs Date Time Temp Pulse Resp B/P Pulse Ox O2 Delivery O2 Flow Rate FiO2 09/19/16 22:46 36.9 70 22 169/76 98 09/19/16 22:16 70 22 98 09/19/16 22:04 71 09/19/16 22:00 169/76 09/19/16 21:46 73 15 94 09/19/16 21:44 171/78 09/19/16 21:30 167/76 09/19/16 21:16 69 15 96 09/19/16 21:10 187/79 09/19/16 21:09 192/107 09/19/16 21:09 70 20 187/79 97 Room Air 09/19/16 20:37 72 186/81 74 168/119 76 183/72 09/19/16 20:33 183/72 09/19/16 20:32 168/119 09/19/16 20:30 186/81 09/19/16 18:46 68 19 99 09/19/16 18:35 72 09/19/16 18:30 155/79 09/19/16 18:29 68 16 168/82 100 Room Air 09/19/16 17:01 Room Air 09/19/16 16:57 36.9 65 16 179/73 95 Room Air The patient is awake, well-developed and adequately nourished, alert and oriented 3, normocephalic and atraumatic, lying in bed and in no acute distress. HEENT--PERRL, EOMI, mucous membranes and oropharynx moist. Neck--supple, no JVD or bruits, thyroid normal, trachea midline, no adenopathy. Heart--normal S1 and S2, no extra beats, no murmurs, rubs or gallops. Lungs--clear bilaterally, no respiratory distress, no accessory muscle use. Abdomen--normal bowel sounds and soft, nontender and nondistended, no hernias or masses, no organomegaly. Extremities--no cyanosis, clubbing or edema. There are good distal pulses b/l. Dermatologic--normal skin turgor, normal color, warm and dry, no abnormal lymph nodes, no rash. Neurologic--cranial nerves II through XII grossly intact, motor and sensory examination normal. Rheumatologic--normal range of motion, nontender, muscles and joints. Psychiatric--normal affect. Diagnostics Laboratory Results Results Past 24 Hours Test 09/19/16 18:07 09/19/16 18:08 09/19/16 22:38 Range/Units Bedside Troponin I 0.000 0-0.045 ng/ml XL-Wvc-X-Type Natriuretic Peptide 894 0-1800 pg/ml White Blood Count 6.54 4.8-10.8 K/uL Red Blood Count 3.35 4.2-5.4 M/uL Hemoglobin 9.5 12.0-16.0 g/dL Hematocrit 28.3 37-47 % Mean Corpuscular Volume 84.5 80-100 fL Mean Corpuscular Hemoglobin 28.4 25-34 pg Mean Corpuscular Hemoglobin Concent 33.6 32-36 g/dl Platelet Count 285 130-400 K/uL Mean Platelet Volume 9.6 7.4-10.4 fL Neutrophils (%) (Auto) 50.3 % Lymphocytes (%) (Auto) 28.4 % Monocytes (%) (Auto) 16.7 % Eosinophils (%) (Auto) 3.5 % Basophils (%) (Auto) 0.9 % Neutrophils # (Auto) 3.29 1.4-6.5 K/uL Lymphocytes # (Auto) 1.86 1.2-3.4 K/uL Monocytes # (Auto) 1.09 0.11-0.59 K/uL Eosinophils # (Auto) 0.23 0-0.5 K/uL Basophils # (Auto) 0.06 0-0.2 K/uL RDW Standard Deviation 45.1 36.4-46.3 fL RDW Coefficient of Variation 14.6 11.5-14.5 % Immature Granulocyte % (Auto) 0.2 % Immature Granulocyte # (Auto) 0.01 0.00-0.02 K/uL Prothrombin Time 10.7 9.0-12.0 SECONDS Prothromb Time International Ratio 1.0 0.9-1.1 Activated Partial Thromboplast Time 22.6 21.0-31.0 SECONDS Partial Thromboplastin Ratio 0.9 Sodium Level 133 136-145 mmol/L Potassium Level 4.3 3.5-5.1 mmol/L Chloride Level 98 98-107 mmol/L Carbon Dioxide Level 31 21-32 mmol/L Anion Gap 4.0 3-11 mmol/L Blood Urea Nitrogen 23 7-18 mg/dl Creatinine 1.10 0.60-1.20 mg/dl Est Creatinine Clear Calc Drug Dose 33.6 ml/min Estimated GFR () 53.0 Estimated GFR (Non- 45.7 BUN/Creatinine Ratio 21.3 10-20 Random Glucose 104 70-99 mg/dl Calcium Level 9.2 8.5-10.1 mg/dl Total Bilirubin 0.2 0.2-1 mg/dl Direct Bilirubin < 0.1 0-0.2 mg/dl Aspartate Amino Transf (AST/SGOT) 16 15-37 U/L Alanine Aminotransferase (ALT/SGPT) 27 12-78 U/L Alkaline Phosphatase 150 45-117 U/L Total Creatine Kinase 12 26-192 U/L Creatine Kinase MB 0.9 0.5-3.6 ng/ml Creatine Kinase MB Ratio 7.5 0-3.0 Total Protein 7.0 6.4-8.2 gm/dl Albumin 3.1 3.4-5.0 gm/dl Lipase 221 73-393 U/L Diagnostic Radiology Patient Name: JESSICA HAZEL Unit Number: [id number] Dictated: 09/19/161816 Transcribed: 09/19/161816 MS Printed Date/Time: [~ rep prt dt]/[~ rep prt tm] [~ rep ct labl] - [~ rep ct ivnm] [facility] [place] [address] Dictated: 09/19/161816 Transcribed: 09/19/161816 MS Printed Date/Time: [~ rep prt dt]/[~ rep prt tm] [~ rep ct labl] - [~ rep ct ivnm] CHEST ONE VIEW PORTABLE CLINICAL HISTORY: CHEST PAIN pain COMPARISON STUDY: 09/16/2016 FINDINGS: Lungs are clear. Mild stable cardiomegaly. Diaphragms smooth. IMPRESSION: No acute process. Electronically signed by: Freddy Sherman M.D. 09/19/2016 6:17 PM Dictated Date/Time: 09/19/2016 6:17 PM The status of this report is Signed. Draft = Not yet reviewed or approved by Radiologist. Signed = Reviewed and approved by Radiologist. <AttendingPhy></AttendingPhy> <FamilyPhy>Kamlesh Mcduffie M.D.</FamilyPhy> < PrimaryPhy>Kamlesh Mcduffie M.D.</PrimaryPhy> <UnitNumber>[id number]</UnitNumber > <VisitNumber>[id number]</VisitNumber> <PatientName>JESSICA HAZEL</ PatientName> <DateOfBirth>1930</DateOfBirth> <Location>[facility]</Location> < ServiceDate>09/19/16</ServiceDate> <MNE>ESINDI</MNE> <OrderingPhy>Abel Ferraro M.D.</OrderingPhy> <OrderingPhyMNE>f rep ord dr sauceda</OrderingPhyMNE> < DictatingPhyMNE>f rep dict dr sauceda</DictatingPhyMNE> <CCListMNE>f rep ct mne</ CCListMNE> <AdmittingPhyMNE>f pt admit dr sauceda</AdmittingPhyMNE> <AttendingPhyMNE >f pt attend dr sauceda</AttendingPhyMNE> <ConsultingPhyMNE>f pt consult dr sauceda</ConsultingPhyMNE> <FamilyPhyMNE>f pt fam dr sauceda</FamilyPhyMNE> <OtherPhyMNE>f pt other dr sauceda</OtherPhyMNE> < PrimaryPhyMNE>f pt prim care dr sauceda</PrimaryPhyMNE> <ReferringPhyMNE>f pt referring dr sauceda</ReferringPhyMNE> EKG EKG shows normal sinus rhythm at 63 bpm, no acute ST-T changes, and no change compared to 09/03/2016. Impression Assessment and Plan CAD/history of [place]/Hypertensive urgency/dizziness/shortness of breath/fatigue-- the patient will be admitted to the telemetry unit for serial cardiac enzymes, cardiac rhythm monitoring. Her most recent echocardiogram on 09/01/2016 showed ejection fraction 65%. We'll increase atenolol from 12.5 mg the 25 mg by mouth twice a day, and start amlodipine 5 mg by mouth 1 tonight and then every morning starting tomorrow. Hypothyroidism--continue levothyroxine sodium at 125 g by mouth daily. GERD/esophagitis causing GI bleed with recent hospitalization--continue pantoprazole 40 mg by mouth daily and sucralfate 1 g by mouth twice a day at 0700, and 1615. Level of Care Telemetry Advanced Directives Existing Advance Directive: No Existing Living Will: No Existing Power of Scroll Shear Operator: No Resuscitation Status FULL RESUSCITATION VTE Prophylaxis VTE Risk Assessment Done? Y/N: Yes Risk Level: Moderate Given or contraindicated: SCD's Social Service Consult >80 yr.& Lives Alone
[2016-09-19] MEDS ORDERED: AMLODIPINE BESYLATE 5 MG TAB PO STA (23:01)
[2016-09-19 23:13] VITALS: BP 171/67; PULSE 70; TEMP 36.6; O2SAT 97; Ht 165.1 cm; Wt 56.6 kg
[2016-09-19] MEDS: ACETAMINOPHEN 325 MG TAB PO PRN (23:46)
[2016-09-20] VITALS (11 sets, daily range): BP systolic 83–165; BP diastolic 44–82; PULSE 60–69; TEMP 36.4–36.8; O2SAT 95–97
[2016-09-20 00:19] LABS: CKMB/CK RATIO 7.9 (0-3.0)
[2016-09-20] MEDS: LEVOTHYROXINE 125 MCG TAB PO SCH (05:00)
[2016-09-20] MEDS: ACETAMINOPHEN 325 MG TAB PO PRN ×4 (05:01→20:47)
[2016-09-20 06:51] LABS: BASO ABS # 0.07 K/uL (0-0.2); COMPLETE YES; EOS % 3.6 %; HEMATOCRIT 28.9 % (37-47); IG% 0.3 %; LYMPH % 23.8 %; LYMPH ABS # 1.65 K/uL (1.2-3.4); MEAN CELL VOLUME 84.3 fL (80-100); MEAN CORPUSCULAR HEMOGLOBIN 27.4 pg (25-34); MEAN CORPUSCULAR HGB CONC 32.5 g/dl (32-36); MEAN PLATELET VOLUME 9.5 fL (7.4-10.4); MONO % 16.8 %; NEUT % 54.5 %; PLATELET COUNT 294 K/uL (130-400); RED BLOOD COUNT 3.43 M/uL (4.2-5.4); WHITE BLOOD COUNT 6.92 K/uL (4.8-10.8)
[2016-09-20 07:00] LABS: PARTIAL THROMBOPLASTIN RATIO 0.9; PROTHROMBIN TIME (PATIENT) 11.1 SECONDS (9.0-12.0)
[2016-09-20 07:14] LABS: BUN/CREATININE RATIO 24.1 (10-20); CALCIUM 9.1 mg/dl (8.5-10.1); CREATININE 0.94 mg/dl (0.60-1.20); MAGNESIUM 2.4 mg/dl (1.8-2.4); POTASSIUM 4.1 mmol/L (3.5-5.1)
[2016-09-20] MEDS: SUCRALFATE 1 GM/10 ML UDC PO SCH ×2 (07:16→15:11)
[2016-09-20] MEDS: MULTIVITAMIN TAB PO SCH (07:18)
[2016-09-20 07:19] LABS: CKMB/CK RATIO 8.5 (0-3.0)
[2016-09-20] MEDS: DESONIDE CR 15 GM TUBE EXT SCH ×2 (07:20→20:36)
[2016-09-20] MEDS: CHOLECALCIFEROL 1000 INTER.UNIT TAB PO SCH (07:20)
[2016-09-20] MEDS ORDERED: AMLODIPINE BESYLATE 5 MG TAB PO SCH (09:00)
[2016-09-20] MEDS ORDERED: PANTOprazole SOD 40 MG TAB PO SCH (09:00)
[2016-09-20 14:52] LABS: CKMB/CK RATIO 5.7 (0-3.0)
--- NOTE | 2016-09-20 16:25 | Cardiology Consultation ---
Cardiology Consultation Date of Service Sep 20, 2016. Cardiology Consultation CARDIOLOGY CONSULTATION DATE OF CONSULTATION: September 20, 2016. REFERRING PHYSICIAN: Kendra Beverly MD REASON FOR CONSULT: Orthostatic hypotension HISTORY OF PRESENT ILLNESS: 86-year-old woman with CAD (remote CABG and stents) with multiple recent hospitalizations who was admitted 09/19/2016 with dizziness and labile blood pressure. Just over 3 weeks ago she had an episode of syncope shortly after she stood up and walked to the bathroom to brush her teeth. She had right-sided rib pain, ultimately diagnosed as rib fractures secondary to her fall. Five days after her syncopal episode, on 08/31/2016, she presented with melena and GI bleed with hemoglobin of 9.6. Workup included an EGD which showed significant esophagitis but no active bleeding. She was treated conservatively. Two days after that hospital discharge, she was readmitted with dyspnea, treated with 1 dose each of Levaquin and Lasix and discharged the next day. CT of the chest showed right lower lobe effusion. There was not felt to be a need for thoracentesis and a follow-up chest x-ray showed resolution of the effusion. As noted, she now presents with further dizziness. At the time of my evaluation , she was comfortable, but still noted she became lightheaded upon standing. She denied any new chest pain, but still noted some soreness at her right lateral rib area where she had the fractures. No dyspnea at rest. No palpitations. MEDICATIONS: Atenolol 12.5 mg b.i.d. Vitamin D3 Doxycycline Levothyroxine Multi vitamin Nitrostat p.r.n. 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 No alcohol. . Retired. Lives alone. FAMILY HISTORY: Noncontributory given advanced age. Cancer and heart disease. REVIEW OF SYSTEMS: As per admission HPI. PHYSICAL EXAMINATION: No distress. Hard of hearing. Vitals: Afebrile. BP 153/56 supine, 114/62 seated, 100/62 standing. Blood pressure since admission has varied from 83/44 to 192/107. Heart rate has varied between 60 and 76. Respirations 18 and nonlabored. Skin: No unusual lesions or ecchymosis. HEENT: Unremarkable. Neck: Jugular venous pulse at the clavicle at 90, no obvious carotid bruits. Lungs: Clear and equal breath sounds bilaterally. No wheezing or crackles. Cardiac: Regular rhythm with normal S1 and S 2. No murmur or gallop. Abdomen: Benign. Extremities: Nontender without edema. Intact peripheral pulses. Neurologic: Normal affect, [id number], nonfocal DATA: Serial ECGs showed sinus rhythm and were unremarkable. Chest x-ray showed no acute disease. Hemoglobin 9.4 and stable, normal white count and platelet count. Normal coagulation studies. Normal electrolytes, BUN 230 with creatinine of 0.94. Magnesium 2.4. CK negative x4, troponin negative x3. Albumin 3.1. Echocardiogram several weeks ago showed normal systolic function (EF 65-70%) with only mild valvular regurgitation. IMPRESSION: 1. Labile hemodynamics with orthostatic hypotension. 2. Coronary artery disease, status post remote CABG with no evidence of ongoing myocardial ischemia. 3. Anemia, felt secondary to GI bleed stop, which in turn is possibly due to esophagitis. 4. Syncopal episode 3-4 weeks ago with rib fractures and right pleural effusion. 5. Multiple other medical problems as noted. DISCUSSION: Patient with the dramatic hemodynamic lability and demonstrated orthostatic hypotension. Review of her records suggest that this is not new, she showed similar levels of BP variation as long ago as 2008. Her recent hemodynamics are notable for a heart rate that does not vary much, suggesting that even her current relatively low-dose beta-philippe may be overly blunting her chronotropic response to postural change. Will hold her atenolol, monitor her heart rhythm, and if her heart rate allows likely restart a low dose of metoprolol prior to discharge (since he does have a history of atrial fibrillation). Will reduce amlodipine to avoid hypotension. Treat acute BP elevations on a p.r.n. basis with hydralazine, but given her longstanding history of hemodynamically lability would not be overly aggressive trying to control her BP. If she is felt to have an iron deficiency anemia due to GI blood loss, could consider initiating iron supplement. Unclear if esophagitis accounts for her level of bleeding. Suspect that her right pleural effusion was related to her rib fractures rather than some form of heart failure or pneumonia. Fortunately , current chest x-ray is unremarkable. Will follow along and adjust vaso active medications as necessary.
[2016-09-20] MEDS: PANTOprazole SOD 40 MG TAB PO SCH (21:23)
--- NOTE | 2016-09-20 21:49 | Progress Note ---
Subjective Date of Service: Sep 20, 2016. Subjective Pt evaluation today including: conversation w/ patient, physical exam, chart review, lab review, review of studies, conversation w/ construction safety consultant, review of inpatient medication list Pain: no pain reported Voiding: no voiding problems, no incontinence Pt is lying comfortable in hospital bed, but still she is lightheaded upon standing. She denied any new chest pain, but still noted some soreness at her right lateral rib area where she had the fractures. Pt denies chest pain, SOB, palpitation and LOC. Pt denies fever, chills, rigors and sweats.pt denies abdominal pain. Problem List Medical Problems: (1) Anemia Status: Acute (2) Dizziness Status: Acute (3) GI bleed Status: Acute (4) Pneumonia Status: Acute (5) SOB (shortness of breath) Status: Acute (6) Weakness Status: Acute Review of Systems All Other Systems: Reviewed and Negative Medications Medications (Trade) Dose Ordered Sig/Paris Route Start Time Stop Time Status Last Admin Dose Admin Acetaminophen (Tylenol Tab) 650 mg Q4H PRN PO 09/19/16 22:45 10/19/16 22:44 09/20/16 20:47 650 MG Atenolol (Tenormin Tab) 25 mg BID PO 09/20/16 09:00 09/20/16 16:26 DC 09/20/16 07:19 25 MG Cholecalciferol (Vitamin D Tab) 1,000 inter.unit DAILY PO 09/20/16 09:00 10/20/16 08:59 09/20/16 07:20 1,000 INTER.UNIT Desonide ([place]owen 0.05% Crm) 1 appln BID EXT 09/20/16 09:00 10/20/16 08:59 09/20/16 20:36 1 APPLN Levothyroxine Sodium (Synthroid Tab) 125 mcg DAILYBB PO 09/20/16 06:00 10/20/16 06:59 09/20/16 05:00 125 MCG Multivitamins (Multivitamin Tab) 1 tab DAILY PO 09/20/16 09:00 10/20/16 08:59 09/20/16 07:18 1 TAB Pantoprazole Sodium (Protonix Tab) 40 mg DAILY PO 09/20/16 09:00 09/20/16 20:43 DC 09/20/16 07:18 40 MG Sucralfate (Carafate Susp) 1 gm BID@0700,1615 PO 09/20/16 07:00 10/20/16 06:59 09/20/16 15:11 1 GM Atenolol (Tenormin Tab) 25 mg NOW STAT PO 09/19/16 23:02 09/19/16 23:05 DC 09/19/16 23:41 25 MG Amlodipine Besylate (Norvasc Tab) 5 mg QAM PO 09/20/16 09:00 09/20/16 16:26 DC 09/20/16 07:20 5 MG Amlodipine Besylate (Norvasc Tab) 5 mg NOW STAT PO 09/19/16 23:01 09/19/16 23:02 DC 09/19/16 23:41 5 MG Objective Vital Signs Date Time Temp Pulse Resp B/P Pulse Ox O2 Delivery O2 Flow Rate FiO2 09/20/16 20:09 69 119/67 09/20/16 20:07 64 135/65 09/20/16 20:04 36.7 61 17 149/67 96 Room Air 09/20/16 20:00 96 Room Air 09/20/16 16:00 Room Air 09/20/16 15:10 155/79 09/20/16 15:00 36.4 60 18 146/64 96 Room Air 09/20/16 12:00 Room Air 09/20/16 11:37 65 100/62 09/20/16 11:37 36.8 60 20 153/56 97 Room Air 09/20/16 11:37 62 114/62 09/20/16 08:00 Room Air 09/20/16 07:15 36.7 60 20 152/70 97 Room Air 09/20/16 04:00 Room Air 09/20/16 03:21 36.5 68 21 156/73 95 Room Air 09/20/16 02:05 121/59 102/54 83/44 09/19/16 23:13 36.6 70 18 171/67 97 Room Air 09/19/16 22:46 36.9 70 22 169/76 98 09/19/16 22:16 70 22 98 09/19/16 22:04 71 09/19/16 22:00 169/76 09/19/16 21:46 73 15 94 09/19/16 21:44 171/78 09/19/16 21:30 167/76 09/19/16 21:16 69 15 96 Physical Exam Comments: GA: No acute distress. Skin: No unusual lesions or ecchymosis. HEENT: NT/AC Neck: no obvious carotid bruits. Lungs: Clear and equal breath sounds bilaterally. No wheezing or crackles. Cardiac: Regular rhythm with normal S1 and S 2. No murmur or gallop. Abdomen: Benign. Extremities: Nontender without edema. Intact peripheral pulses. Neurologic: Normal affect, [id number], nonfocal neuro deficit Laboratory Results Last 24 Hours Test 09/19/16 23:47 09/20/16 06:38 09/20/16 14:10 Total Creatine Kinase 14 U/L 13 U/L 14 U/L Creatine Kinase MB 1.1 ng/ml 1.1 ng/ml 0.8 ng/ml Creatine Kinase MB Ratio 7.9 8.5 5.7 Troponin I 0.016 ng/ml 0.017 ng/ml < 0.015 ng/ml White Blood Count 6.92 K/uL Red Blood Count 3.43 M/uL Hemoglobin 9.4 g/dL Hematocrit 28.9 % Mean Corpuscular Volume 84.3 fL Mean Corpuscular Hemoglobin 27.4 pg Mean Corpuscular Hemoglobin Concent 32.5 g/dl Platelet Count 294 K/uL Mean Platelet Volume 9.5 fL Neutrophils (%) (Auto) 54.5 % Lymphocytes (%) (Auto) 23.8 % Monocytes (%) (Auto) 16.8 % Eosinophils (%) (Auto) 3.6 % Basophils (%) (Auto) 1.0 % Neutrophils # (Auto) 3.77 K/uL Lymphocytes # (Auto) 1.65 K/uL Monocytes # (Auto) 1.16 K/uL Eosinophils # (Auto) 0.25 K/uL Basophils # (Auto) 0.07 K/uL RDW Standard Deviation 44.8 fL RDW Coefficient of Variation 14.4 % Immature Granulocyte % (Auto) 0.3 % Immature Granulocyte # (Auto) 0.02 K/uL Prothrombin Time 11.1 SECONDS Prothromb Time International Ratio 1.0 Activated Partial Thromboplast Time 24.5 SECONDS Partial Thromboplastin Ratio 0.9 Sodium Level 138 mmol/L Potassium Level 4.1 mmol/L Chloride Level 106 mmol/L Carbon Dioxide Level 26 mmol/L Anion Gap 6.0 mmol/L Blood Urea Nitrogen 23 mg/dl Creatinine 0.94 mg/dl Est Creatinine Clear Calc Drug Dose 38.6 ml/min Estimated GFR () 64.1 Estimated GFR (Non- 55.3 BUN/Creatinine Ratio 24.1 Random Glucose 99 mg/dl Calcium Level 9.1 mg/dl Magnesium Level 2.4 mg/dl Assessment and Plan 86 year old female, CAD s/p CABG /history of syncopal episode/Anemia/ Hypertensive urgency/dizziness/shortness of breath/fatigue - Continue telemetry unit for now still very orthostatic, cardiac markers are negative. - EKG is unremarkable for ischemia. cardiology consult obtained for orthostasis .Her most recent echocardiogram on 09/01/2016 showed ejection fraction 65%. - Patient with the hemodynamic lability and demonstrated orthostatic hypotension. - According to cardiology, Pt history suggest that this is not new, she showed similar levels of BP variation as long ago as 2008. Her recent hemodynamics are notable for a heart rate that does not vary much, suggesting that even her current relatively low-dose beta-philippe may be overly blunting her chronotropic response to postural change. Will hold her atenolol, monitor her heart rhythm, and if her heart rate allows likely restart a low dose of metoprolol prior to discharge (since he does have a history of atrial fibrillation). - Reduced amlodipine to 2.5mg to avoid hypotension. - Treat acute BP elevations on a p.r.n. basis with hydralazine, but given her longstanding history of hemodynamically lability would not be overly aggressive trying to control her BP. Hypothyroidism--continue levothyroxine sodium at 125 g by mouth daily. GERD/esophagitis causing GI bleed with recent hospitalization, continue pantoprazole 40 mg by mouth daily and sucralfate 1 g by mouth twice a day. Possible iron deficiency anemia due to GI blood loss, could consider initiating iron supplement. Right pleural effusion was related to her rib fractures rather than some form of heart failure or pneumonia. Fortunately, current chest x-ray is unremarkable. Continued [facility] stay due to: multiple IV medications needed Discharge planning: uncertain
[2016-09-21] VITALS (10 sets, daily range): BP systolic 104–214; BP diastolic 57–76; PULSE 57–73; TEMP 36.4–36.9; O2SAT 95–98
[2016-09-21] MEDS: LEVOTHYROXINE 125 MCG TAB PO SCH (06:27)
[2016-09-21] MEDS: SUCRALFATE 1 GM/10 ML UDC PO SCH ×2 (06:28→15:33)
[2016-09-21 06:55] LABS: BASO % 0.6 %; BASO ABS # 0.04 K/uL (0-0.2); COMPLETE YES; EOS % 5.8 %; HEMATOCRIT 30.4 % (37-47); IG% 0.2 %; LYMPH % 31.8 %; LYMPH ABS # 1.98 K/uL (1.2-3.4); MEAN CELL VOLUME 85.2 fL (80-100); MEAN CORPUSCULAR HEMOGLOBIN 28.3 pg (25-34); MEAN CORPUSCULAR HGB CONC 33.2 g/dl (32-36); MEAN PLATELET VOLUME 9.7 fL (7.4-10.4); MONO % 12.7 %; NEUT % 48.9 %; PLATELET COUNT 287 K/uL (130-400); RED BLOOD COUNT 3.57 M/uL (4.2-5.4); WHITE BLOOD COUNT 6.22 K/uL (4.8-10.8)
[2016-09-21 07:04] LABS: PARTIAL THROMBOPLASTIN RATIO 0.9
[2016-09-21 07:23] LABS: BUN/CREATININE RATIO 24.8 (10-20); CALCIUM 9.6 mg/dl (8.5-10.1); MAGNESIUM 2.4 mg/dl (1.8-2.4); POTASSIUM 4.3 mmol/L (3.5-5.1)
[2016-09-21] MEDS: PANTOprazole SOD 40 MG TAB PO SCH ×2 (08:22→20:55)
[2016-09-21] MEDS: MULTIVITAMIN TAB PO SCH (08:22)
[2016-09-21] MEDS: DESONIDE CR 15 GM TUBE EXT SCH ×2 (08:24→20:55)
[2016-09-21] MEDS: CHOLECALCIFEROL 1000 INTER.UNIT TAB PO SCH (08:24)
[2016-09-21] MEDS: ACETAMINOPHEN 325 MG TAB PO PRN ×3 (08:25→17:30)
[2016-09-21] MEDS ORDERED: AMLODIPINE BESYLATE 5 MG TAB PO SCH (09:00)
--- NOTE | 2016-09-21 10:26 | Cardiology Follow-Up ---
Cardiology Follow-Up Date of Service Sep 21, 2016. Cardiology Follow-Up SUBJECTIVE: 86-year-old woman with CAD (remote CABG and stents) with multiple recent hospitalizations who was admitted 09/19/2016 with dizziness and labile blood pressure. Amlodipine dose was reduced yesterday and atenolol held last evening and this morning. Her heart rate remains borderline bradycardic, she had some mild hypertension in the middle of the night but is normotensive this morning. Mild orthostasis only this morning. She still feels somewhat weak and felt dizzy walking to the bathroom, no other complaints. Denied any chest pain, dyspnea, or any new symptoms. PHYSICAL EXAMINATION: No distress. Hard of hearing. Vitals: Afebrile. BP varied with of peak of 179/76 overnight, this morning 116 /60 dropping 104/57 upon standing. Heart rate mostly in the 60s. Respirations 20 but unlabored. Skin: No unusual lesions or ecchymosis. HEENT: Unremarkable. Neck: Jugular venous pulse at the clavicle at 90, no obvious carotid bruits. Lungs: Clear and equal breath sounds bilaterally. No wheezing or crackles. Cardiac: Regular rhythm with normal S1 and S 2. No murmur or gallop. Abdomen: Benign. Extremities: Nontender without edema. Intact peripheral pulses. Neurologic: Normal affect, [id number], nonfocal DATA: ECG this morning showed sinus bradycardia 58 bpm with an incomplete left bundle branch block, no significant change. Hemoglobin stable at 10.4 (up from 9.4), normal white count and platelet count. Normal electrolytes, BUN 25, creatinine 1.0 (23 and 0.94 yesterday). Cardiac enzymes negative x3. IMPRESSION: 1. Labile hemodynamics with orthostatic hypotension. 2. Coronary artery disease, status post remote CABG with no evidence of ongoing myocardial ischemia. 3. Anemia, felt secondary to GI bleed, which in turn is possibly due to esophagitis. 4. Syncopal episode 3-4 weeks ago with rib fractures and right pleural effusion. 5. Multiple other medical problems as noted. DISCUSSION: Hemodynamics improving, continue to hold atenolol while monitoring for any atrial fibrillation (which she had in the distant past). Based on her heart rate response and rhythm, could either remain off beta-philippe use very low- dose metoprolol upon discharge. If she does have marked elevations of blood pressure which are very sporadic, could consider PRN doses of clonidine. Although there is risk of somnolence and confusion at her age, if she has severe systolic blood pressure elevation ( greater than 200 mm Hg) it might be worth using this on an intermittent basis, particularly since is less likely to aggravate her tendency to orthostasis. If she is felt to have an iron deficiency anemia due to GI blood loss, could consider initiating iron supplement. Although she seems to be improving, further titration of medications is appropriate and she has been hospitalized 3 times this month, so remaining another 24 hours seems appropriate.
[2016-09-21] MEDS ORDERED: NURSING VERBAL MED ORDER ONE (10:30)
--- NOTE | 2016-09-21 11:05 | DIAGNOSTIC IMAGING REPORT ---
CHEST ONE VIEW PORTABLE HISTORY: Short of breath. COMPARISON: Chest 09/19/2016. FINDINGS: No pneumothorax. No pleural effusions. Low lung volumes with mild elevation of the left hemidiaphragm. This is likely due to the gas-filled stomach. The heart is normal in size. Tortuous thoracic aorta, unchanged. Poststernotomy changes. No focal lung consolidations. No evidence for pulmonary edema. IMPRESSION: No acute process. Electronically signed by: Mahin Tiwari M.D. 09/21/2016 11:03 AM Dictated Date/Time: 09/21/2016 11:01 AM
--- NOTE | 2016-09-21 13:09 | Progress Note ---
Subjective Date of Service: Sep 21, 2016. Subjective Pt evaluation today including: conversation w/ patient, physical exam, chart review, lab review, review of studies, conversation w/ customer service and sales consultant, review of inpatient medication list Pain: no pain reported PO Intake: good oral intake Voiding: no voiding problems, no incontinence Patient is seen and examined by me. Patient felt slightly dizzy, short of breath, weak while walking towards the bathroom. Patient denies chest pain, palpitation and loss of consciousness. Patient denies fever, chills, rigors and sweats. Patient denies abdominal pain and urinary symptoms. Patient states that overall she felt better however she still have this slight dizziness and shortness of breath. Patient denies blurry vision and headache. Patient denies any motor or sensory weakness to bilateral upper and lower extremities. Patient denies any change with vision. Patient denies nausea, vomiting and diarrhea. Problem List Medical Problems: (1) Anemia Status: Acute (2) Dizziness Status: Acute (3) GI bleed Status: Acute (4) Pneumonia Status: Acute (5) SOB (shortness of breath) Status: Acute (6) Weakness Status: Acute Review of Systems Constitutional: + weakness, No chills, No fever, No sweats Respiratory: + shortness of breath Cardiac: No chest pain, No claudication, No edema, No palpitations Abdomen: No diarrhea, No nausea, No pain, No vomiting Musculoskeletal: No joint pain, No muscle pain, No swelling Neurologic: + problem reported (dizziness), No memory loss, No numbness/ tingling, No vertigo, No weakness Psychiatric: No anxiety Heme: No abnormal bleeding/bruising Skin: No rash Medications Medications (Trade) Dose Ordered Sig/Paris Route Start Time Stop Time Status Last Admin Dose Admin Amlodipine Besylate (Norvasc Tab) 2.5 mg QAM PO 09/21/16 09:00 09/21/16 10:36 DC 09/21/16 08:23 2.5 MG Pantoprazole Sodium (Protonix Tab) 40 mg BID PO 09/20/16 21:00 10/20/16 20:59 09/21/16 08:22 40 MG Objective Vital Signs Date Time Temp Pulse Resp B/P Pulse Ox O2 Delivery O2 Flow Rate FiO2 09/21/16 12:00 Room Air 09/21/16 11:15 61 128/68 98 Nasal Cannula 2.0 09/21/16 08:06 65 116/60 67 104/57 09/21/16 08:00 Room Air 09/21/16 07:55 36.7 57 20 119/66 97 Room Air 09/21/16 04:00 96 Room Air 09/21/16 02:50 73 131/69 09/21/16 02:49 67 143/71 09/21/16 02:47 36.5 64 20 179/76 96 Room Air 09/21/16 00:01 96 Room Air 09/20/16 23:31 36.5 66 20 165/82 96 Room Air 09/20/16 20:09 69 119/67 09/20/16 20:07 64 135/65 09/20/16 20:04 36.7 61 17 149/67 96 Room Air 09/20/16 20:00 96 Room Air 09/20/16 16:00 Room Air 09/20/16 15:10 155/79 09/20/16 15:00 36.4 60 18 146/64 96 Room Air Physical Exam General Appearance: WD/WN, no apparent distress, + pertinent finding (feeling slightly wea) Neck: supple, no adenopathy Respiratory/Chest: lungs clear, normal breath sounds, no respiratory distress Cardiovascular: regular rate, rhythm, no edema, no gallop, no murmur Abdomen: soft Extremities: normal range of motion, no pedal edema Neurologic/Psychiatric: alert, normal mood/affect, oriented x 3 Skin: no rash Lymphatic: no adenopathy Laboratory Results Last 24 Hours Test 09/20/16 14:10 09/21/16 06:40 09/21/16 11:51 Total Creatine Kinase 14 U/L Creatine Kinase MB 0.8 ng/ml Creatine Kinase MB Ratio 5.7 Troponin I < 0.015 ng/ml < 0.015 ng/ml White Blood Count 6.22 K/uL Red Blood Count 3.57 M/uL Hemoglobin 10.1 g/dL Hematocrit 30.4 % Mean Corpuscular Volume 85.2 fL Mean Corpuscular Hemoglobin 28.3 pg Mean Corpuscular Hemoglobin Concent 33.2 g/dl Platelet Count 287 K/uL Mean Platelet Volume 9.7 fL Neutrophils (%) (Auto) 48.9 % Lymphocytes (%) (Auto) 31.8 % Monocytes (%) (Auto) 12.7 % Eosinophils (%) (Auto) 5.8 % Basophils (%) (Auto) 0.6 % Neutrophils # (Auto) 3.04 K/uL Lymphocytes # (Auto) 1.98 K/uL Monocytes # (Auto) 0.79 K/uL Eosinophils # (Auto) 0.36 K/uL Basophils # (Auto) 0.04 K/uL RDW Standard Deviation 45.3 fL RDW Coefficient of Variation 14.5 % Immature Granulocyte % (Auto) 0.2 % Immature Granulocyte # (Auto) 0.01 K/uL Prothrombin Time 11.0 SECONDS Prothromb Time International Ratio 1.0 Activated Partial Thromboplast Time 24.2 SECONDS Partial Thromboplastin Ratio 0.9 Sodium Level 137 mmol/L Potassium Level 4.3 mmol/L Chloride Level 104 mmol/L Carbon Dioxide Level 28 mmol/L Anion Gap 5.0 mmol/L Blood Urea Nitrogen 25 mg/dl Creatinine 1.00 mg/dl Est Creatinine Clear Calc Drug Dose 36.1 ml/min Estimated GFR () 59.5 Estimated GFR (Non- 51.3 BUN/Creatinine Ratio 24.8 Random Glucose 105 mg/dl Calcium Level 9.6 mg/dl Magnesium Level 2.4 mg/dl Assessment and Plan 86 year old female, CAD s/p CABG /history of syncopal episode/Anemia/ Hypertensive urgency/dizziness/shortness of breath/fatigue - Continue telemetry unit for now still orthostatic, cardiac markers are negative. Pt was little weak this morning, SOB, no chest pain, dizzy. EKG, chest X-ray and troponin is negative, -- case discussed with cardiology, possible orthostatic and deconditioning, however orthostasis improved in past 24 hours. Will also consult PT/OT. - Her most recent echocardiogram on 09/01/2016 showed ejection fraction 65% .Will Discontinue amlodipine for now. - According to cardiology, Pt history suggest that this is not new, she showed similar levels of BP variation as long ago as 2008. Her recent hemodynamics are notable for a heart rate that does not vary much, suggesting that even her current relatively low-dose beta-philippe may be overly blunting her chronotropic response to postural change. Will hold her atenolol, monitor her heart rhythm, and if her heart rate allows likely restart a low dose of metoprolol prior to discharge (since he does have a history of atrial fibrillation). - Treat acute BP elevations on a p.r.n. basis with hydralazine,clonidine?, but given her longstanding history of hemodynamically lability would not be overly aggressive trying to control her BP. Hypothyroidism--continue levothyroxine sodium at 125 g by mouth daily. GERD/esophagitis causing GI bleed with recent hospitalization, continue pantoprazole 40 mg by mouth daily and sucralfate 1 g by mouth twice a day. Possible iron deficiency anemia due to GI blood loss, could consider initiating iron supplement. Right pleural effusion was related to her rib fractures rather than some form of heart failure or pneumonia. Fortunately, current chest x-ray is unremarkable. Continued [facility] stay due to: multiple IV medications needed Discharge planning: uncertain
[2016-09-22] VITALS (12 sets, daily range): BP systolic 111–182; BP diastolic 57–83; PULSE 62–85; TEMP 36.2–36.9; O2SAT 95–97
[2016-09-22] MEDS: ACETAMINOPHEN 325 MG TAB PO PRN ×5 (00:36→23:58)
[2016-09-22] MEDS: LEVOTHYROXINE 125 MCG TAB PO SCH (05:09)
[2016-09-22] MEDS: SUCRALFATE 1 GM/10 ML UDC PO SCH ×2 (05:09→15:41)
[2016-09-22 06:57] LABS: BASO % 1.1 %; BASO ABS # 0.07 K/uL (0-0.2); COMPLETE YES; EOS % 5.8 %; HEMATOCRIT 29.3 % (37-47); IG% 0.2 %; LYMPH % 29.2 %; LYMPH ABS # 1.85 K/uL (1.2-3.4); MEAN CELL VOLUME 84.4 fL (80-100); MEAN CORPUSCULAR HEMOGLOBIN 28.2 pg (25-34); MEAN CORPUSCULAR HGB CONC 33.4 g/dl (32-36); MEAN PLATELET VOLUME 9.7 fL (7.4-10.4); MONO % 12.3 %; NEUT % 51.4 %; PLATELET COUNT 280 K/uL (130-400); RED BLOOD COUNT 3.47 M/uL (4.2-5.4); WHITE BLOOD COUNT 6.34 K/uL (4.8-10.8)
[2016-09-22 07:32] LABS: BUN/CREATININE RATIO 25.8 (10-20); CALCIUM 9.4 mg/dl (8.5-10.1); MAGNESIUM 2.3 mg/dl (1.8-2.4)
[2016-09-22] MEDS: DESONIDE CR 15 GM TUBE EXT SCH ×2 (08:07→20:00)
[2016-09-22] MEDS: PANTOprazole SOD 40 MG TAB PO SCH ×2 (08:07→20:01)
[2016-09-22] MEDS: CHOLECALCIFEROL 1000 INTER.UNIT TAB PO SCH (08:07)
[2016-09-22] MEDS: MULTIVITAMIN TAB PO SCH (08:08)
[2016-09-22] MEDS ORDERED: MAGNESIUM HYDROXIDE SUSP 30 ML UDC PO ONE (16:00)
--- NOTE | 2016-09-22 17:03 | Progress Note ---
Subjective Date of Service: Sep 22, 2016. Subjective Pt evaluation today including: conversation w/ patient, physical exam, chart review, lab review, review of studies, review of inpatient medication list Feeling miserable. She feels tired when she sometimes walks around. Sometimes feels lightheaded. No chest pain, no sob. No abd pain, no le swelling. TOlerating po intake well. Problem List Medical Problems: (1) Anemia Status: Acute (2) Dizziness Status: Acute (3) GI bleed Status: Acute (4) Pneumonia Status: Acute (5) SOB (shortness of breath) Status: Acute (6) Weakness Status: Acute Review of Systems All Other Systems: Reviewed and Negative Medications Acetaminophen (Tylenol Tab) 650 mg Q4H PRN PO Last administered on 09/22/16 10:59; Admin Dose 650 MG; Start 09/19/16 at 22:45; Stop 10/19/16 at 22:44 Cholecalciferol (Vitamin D Tab) 1,000 inter.unit DAILY PO Last administered on 08:07; Admin Dose 1,000 INTER.UNIT; Start 09/20/16 at 09:00; Stop 10/20 at 08:59 Desonide (Desowen 0.05% Crm) 1 appln BID EXT Last administered on 09/22/16 08: 07; Admin Dose 1 APPLN; Start 09/20/16 at 09:00; Stop 10/20/16 at 08:59 Docusate Sodium (coLACE CAP) 100 mg BID PRN PO; Start 09/19/16 at 22:45; Stop 10/19/16 at 22:44 Hydralazine HCl (HydrALAZINE INJ) 10 mg Q4H PRN IV.; Start 09/19/16 at 22:45 Levothyroxine Sodium (Synthroid Tab) 125 mcg DAILYBB PO Last administered on 05:09; Admin Dose 125 MCG; Start 09/20/16 at 06:00; Stop 10/20/16 at 06: 59 Miscellaneous Information (Order Awaiting Action) 1 ea QS N/A; Start 09/20/16 at 00:00; Stop 10/20/16 at 00:00 Multivitamins (Multivitamin Tab) 1 tab DAILY PO Last administered on 09/22/16 08:08; Admin Dose 1 TAB; Start 09/20/16 at 09:00; Stop 10/20/16 at 08:59 Nitroglycerin (Nitrostat Tab) 0.4 mg PRN UT; Start 09/19/16 at 22:45; Stop 10/19 at 22:44 Ondansetron HCl (Zofran Inj) 4 mg Q6H PRN IV; Start 09/19/16 at 22:45; Stop at 22:44 Pantoprazole Sodium (Protonix Tab) 40 mg BID PO Last administered on 09/22/16 08:07; Admin Dose 40 MG; Start 09/20/16 at 21:00; Stop 10/20/16 at 20:59 Sucralfate (Carafate Susp) 1 gm BID@0700,1615 PO Last administered on 09/22/16 15:41; Admin Dose 1 GM; Start 09/20/16 at 07:00; Stop 10/20/16 at 06:59 Objective Vital Signs Date Time Temp Pulse Resp B/P Pulse Ox O2 Delivery O2 Flow Rate FiO2 09/22/16 16:00 Room Air 09/22/16 15:27 85 22 159/72 09/22/16 15:25 78 20 152/75 09/22/16 15:24 36.2 73 18 170/83 97 09/22/16 12:09 36.5 62 24 163/65 97 Room Air 09/22/16 12:00 Room Air 09/22/16 11:05 64 09/22/16 08:00 Room Air 09/22/16 07:59 36.9 67 18 132/64 96 Room Air 71 129/57 82 111/61 09/22/16 04:00 Room Air 09/22/16 03:47 36.5 74 21 145/76 97 Room Air 09/22/16 00:25 78 111/69 09/22/16 00:24 77 125/69 09/22/16 00:21 36.8 72 18 153/79 97 Room Air 09/21/16 23:59 Room Air 09/21/16 20:00 Room Air 09/21/16 19:27 36.4 71 19 114/72 96 Room Air Physical Exam Comments: nad, aox3 anicteric s1 s2 rrr, no murmurs appreciated ctab no w/r/r abd soft nt/nd +BS no LE edema Laboratory Results Last 24 Hours Test 09/22/16 06:30 White Blood Count 6.34 K/uL Red Blood Count 3.47 M/uL Hemoglobin 9.8 g/dL Hematocrit 29.3 % Mean Corpuscular Volume 84.4 fL Mean Corpuscular Hemoglobin 28.2 pg Mean Corpuscular Hemoglobin Concent 33.4 g/dl Platelet Count 280 K/uL Mean Platelet Volume 9.7 fL Neutrophils (%) (Auto) 51.4 % Lymphocytes (%) (Auto) 29.2 % Monocytes (%) (Auto) 12.3 % Eosinophils (%) (Auto) 5.8 % Basophils (%) (Auto) 1.1 % Neutrophils # (Auto) 3.26 K/uL Lymphocytes # (Auto) 1.85 K/uL Monocytes # (Auto) 0.78 K/uL Eosinophils # (Auto) 0.37 K/uL Basophils # (Auto) 0.07 K/uL RDW Standard Deviation 44.8 fL RDW Coefficient of Variation 14.5 % Immature Granulocyte % (Auto) 0.2 % Immature Granulocyte # (Auto) 0.01 K/uL Prothrombin Time 11.0 SECONDS Prothromb Time International Ratio 1.0 Activated Partial Thromboplast Time 24.8 SECONDS Partial Thromboplastin Ratio 1.0 Sodium Level 137 mmol/L Potassium Level 4.0 mmol/L Chloride Level 105 mmol/L Carbon Dioxide Level 28 mmol/L Anion Gap 4.0 mmol/L Blood Urea Nitrogen 26 mg/dl Creatinine 1.00 mg/dl Est Creatinine Clear Calc Drug Dose 36.4 ml/min Estimated GFR () 59.5 Estimated GFR (Non- 51.3 BUN/Creatinine Ratio 25.8 Random Glucose 104 mg/dl Calcium Level 9.4 mg/dl Magnesium Level 2.3 mg/dl Assessment and Plan 1. Labile HTN - off any antihypertensives today not requiring prn hydralazine - max SBP 170 - goal is <160 ideally but she did drop her BP with 2.5 mg amlodipine yesterday - will monitor overnight and re-assess need for antihypertensive tomorrow AM - some options for BP spikes could include prn clonidine but may precipitate significant bp drops or prn candesartan which is also short acting but not as potent as clonidine 2. CAD s/p cabg and stents - statin intolerant - not on aspirin, but may have been stopped due to esophagitis and h/o GI bleeding 3. Diastolic dysfunction - preserved EF - cardio following 4 hypothyroid - cont levothyroxine 5. dvt ppx with hsq 6. anemia - check iron panel - borderline mcv - check b12/folate - noted patient on PPI chronically - stool for occult blood as well Continued [facility] stay due to: multiple IV medications needed Discharge planning: uncertain
--- NOTE | 2016-09-22 18:56 | CARDIOLOGY PROGRESS NOTE ---
DATE: 09/22/2016 SUBJECTIVE: The patient was seen by me this afternoon in her telemetry unit room. She denies any dyspnea at rest. She does complain of dyspnea with walking. She has mild dyspnea walking from her bed to the restroom. She denies any anginal type chest discomfort. She still has a right-sided musculoskeletal discomfort from fractured ribs. This is steadily improving. No cough. No fevers or chills. No abdominal pain or nausea. No leg pain or swelling. She denies any blood in her stools. She has had no bowel movement for 3 days. She states that within the past week, she did have an episode of a bowel movement, which was black in color. No neurologic symptoms. She denies any lightheadedness getting out of bed today. CURRENT MEDICATIONS: SubQ heparin 5000 units q. 8 hours, pantoprazole 40 mg p.o. b.i.d., vitamin D 1000 units daily, desonide 1 application b.i.d., multivitamin 1 daily, sucralfate 1 gram b.i.d., levothyroxine 125 mcg daily, p.r.n. acetaminophen, docusate sodium 100 mg p.o. b.i.d. p.r.n., hydralazine 10 mg IV q. 4 hours p.r.n. systolic blood pressure greater than 195, and Zofran 4 mg IV q. 6 hours p.r.n. nausea. Sublingual nitroglycerin p.r.n. PHYSICAL EXAMINATION: GENERAL: The patient is lying in bed. No distress. VITAL SIGNS: This afternoon with oral temperature of 36.2, pulse 73, supine blood pressure 170/83, sitting blood pressure 152/75, and standing blood pressure 159/72. Pulse oximetry on room air 97%. NECK: No jugular venous distention. LUNGS: Normal respiratory effort. Clear. No rales or wheezes. HEART: Regular rate and rhythm. S1 and S2 normal. No S3 or S4. 1/6 systolic murmur in the left lower sternal border. No diastolic murmur or rub. ABDOMEN: Soft. Nontender. No palpable masses or organomegaly. EXTREMITIES: No pretibial edema. No calf tenderness. NEUROLOGIC: Alert and oriented x3. Motor grossly intact. PSYCHIATRIC: Affect is normal. DIAGNOSTIC STUDIES: Checks x-rays on this admission on September 19 and then again on September 21 without CHF or infiltrate. Electrocardiogram performed yesterday and reviewed by me was normal. LABORATORY DATA TODAY: WBC 6.34, hemoglobin 9.8, hematocrit 29.3, and platelet count 280. Metabolic profile with sodium 137, potassium 4.0, chloride 105, carbon dioxide 28, BUN 26, creatinine 1.0, random glucose 104, and magnesium 2.3. Troponin I's on this admission have all been negative for myocardial injury. The highest troponin I was 0.017. ProB natriuretic peptide was normal at 894. Echocardiogram performed on September 01 revealed normal left ventricular systolic function. There was evidence of left ventricular diastolic dysfunction. Mild mitral, tricuspid, and pulmonic regurgitation. EGD performed on September 01 revealed grade D reflux esophagitis. Mucosal breaks involving at least 75% of the esophageal conference reported. No active bleeding was found. ASSESSMENT: 1. Improvement in orthostatic blood pressure changes today. 2. Mild systolic hypertension. 3. No anginal type pains. Electrocardiogram without ischemic ST or T-wave abnormalities. Cardiac enzymes on this admission negative for myocardial injury. 4. No evidence of congestive heart failure on exam or chest x-ray. ProBNP was normal. 5. Complained of dyspnea. Her oxygen saturation on room air is normal. As stated above, no evidence of pulmonary vascular congestion on exam. No evidence of infiltrate or heart failure on chest x-ray. She feels that her dyspnea on exertion has worsened since she was admitted for her GI bleed in early August. She still has anemia. No significant change in hemoglobin since early August. Stool on this admission has not been checked for occult blood. 6. Constipation. RECOMMENDATIONS: 1. Continue off any maintenance antihypertensive medications at this time. 2. Check stool for occult blood. 3. Check anemia workup. Specifically, check iron stores, transferrin, and ferritin. We will also order vitamin B12 and folate levels. 4. Make the docusate sodium b.i.d. instead of p.r.n. 5. Milk of magnesia today. The patient requests something to achieve a bowel movement. 6. If her iron levels are low and there is evidence for iron deficiency anemia, would start iron supplementation. [facility]
[2016-09-22] MEDS: DOCUSATE SODIUM 100 MG CAP PO SCH (20:01)
[2016-09-22] MEDS: HEPARIN SOD 5000 UNIT/0.5 ML CARP SQ SCH (21:26)
[2016-09-23] VITALS (12 sets, daily range): BP systolic 90–180; BP diastolic 57–78; PULSE 67–93; TEMP 36.3–36.9; O2SAT 94–99
[2016-09-23] MEDS: LEVOTHYROXINE 125 MCG TAB PO SCH (06:13)
[2016-09-23] MEDS: HEPARIN SOD 5000 UNIT/0.5 ML CARP SQ SCH ×3 (06:14→21:35)
[2016-09-23 07:09] LABS: BASO % 1.3 %; BASO ABS # 0.07 K/uL (0-0.2); COMPLETE YES; EOS % 5.4 %; HEMATOCRIT 30.8 % (37-47); IG% 0.2 %; LYMPH ABS # 1.52 K/uL (1.2-3.4); MEAN CELL VOLUME 84.8 fL (80-100); MEAN CORPUSCULAR HEMOGLOBIN 28.4 pg (25-34); MEAN CORPUSCULAR HGB CONC 33.4 g/dl (32-36); MEAN PLATELET VOLUME 10.3 fL (7.4-10.4); MONO % 15.3 %; NEUT % 49.8 %; PLATELET COUNT 276 K/uL (130-400); RED BLOOD COUNT 3.63 M/uL (4.2-5.4); WHITE BLOOD COUNT 5.42 K/uL (4.8-10.8)
[2016-09-23 07:44] LABS: BUN/CREATININE RATIO 23.1 (10-20); CALCIUM 9.6 mg/dl (8.5-10.1); CREATININE 0.96 mg/dl (0.60-1.20); MAGNESIUM 2.7 mg/dl (1.8-2.4)
[2016-09-23 07:53] LABS: FERRITIN 34.1 ng/ml (8.0-388.0)
[2016-09-23] MEDS: CHOLECALCIFEROL 1000 INTER.UNIT TAB PO SCH (08:28)
[2016-09-23] MEDS: MULTIVITAMIN TAB PO SCH (08:28)
[2016-09-23] MEDS: DESONIDE CR 15 GM TUBE EXT SCH ×2 (08:28→21:33)
[2016-09-23] MEDS: DOCUSATE SODIUM 100 MG CAP PO SCH ×2 (08:29→21:33)
[2016-09-23] MEDS: PANTOprazole SOD 40 MG TAB PO SCH ×2 (08:29→21:33)
[2016-09-23] MEDS: SUCRALFATE 1 GM/10 ML UDC PO SCH ×2 (08:30→17:33)
--- NOTE | 2016-09-23 09:32 | PROGRESS NOTE ---
DATE: 09/23/2016 HISTORY OF PRESENT ILLNESS: The patient was seen by me this morning in the telemetry unit room. She denies any lightheadedness today. No lightheadedness when she got out of bed to go to the restroom. No dyspnea at rest. No orthopnea or PND overnight. No dyspnea walking to the restroom today. No palpitations. No anginal type chest discomfort. Musculoskeletal right-sided chest discomfort, which she attributes to her fractured ribs. This is steadily improving over the past few weeks. She had a bowel movement yesterday. She thinks the stool was dark in color. It was not tested for occult blood. She denies any leg pain. No leg swelling. No neurologic symptoms. No fevers or chills. CURRENT MEDICATIONS: SubQ heparin 5000 units q. 8 hours, docusate sodium 100 mg b.i.d., MiraLax 17 grams daily p.r.n. constipation, pantoprazole 40 mg b.i.d., vitamin D 1000 units daily, desonide cream 1 application b.i.d., multivitamin 1 daily, sucralfate suspension 1 gram b.i.d., levothyroxine 125 mcg daily, p.r.n. hydralazine 10 mg IV q. 4 hours systolic blood pressure greater than 195, p.r.n. Zofran, p.r.n. sublingual nitroglycerin, and p.r.n. acetaminophen. ALLERGIES AND ADVERSE DRUG REACTIONS: ATORVASTATIN, ZETIA, MORPHINE, AND PENICILLINS. PHYSICAL EXAMINATION: VITAL SIGNS: Standing blood pressure overnight was 90/57. Blood pressure this morning in supine position 168/75. Pulse oximetry room air 95%. Pulse 72. Oral temperature 36.5. Monitor reveals sinus rhythm with occasional premature supraventricular beat. NECK: No jugular venous distention. LUNGS: Normal respiratory effort. Clear. No rales or wheezes. HEART: Regular rate and rhythm. S1 and S2 normal. No S3 or S4. 1/6 systolic murmur left lower sternal border. No diastolic murmur or rub. ABDOMEN: Soft. Nontender. No palpable masses or organomegaly. No bruits. EXTREMITIES: No pretibial edema. No calf tenderness. NEUROLOGIC: Alert and oriented x3. Motor grossly intact. PSYCHIATRIC: Affect is normal. LABORATORY DATA: Today with hemoglobin 10.3, hematocrit 30.8, WBC 5.42, and platelet count 276. Sodium 138, potassium 4.0, chloride 104, carbon dioxide 29, BUN 22, creatinine 0.96, and random glucose 101. Magnesium 2.7. Iron 17. TIBC 387. Transferrin 301. Transferrin percent saturation 4. Ferritin 34.1. Vitamin B12 is 1020. Folate greater than 24.00. ASSESSMENT: 1. Orthostatic hypotension. She had asymptomatic low blood pressure standing last night. Her supine systolic pressure is [id number] elevated. 2. History of coronary artery disease. No anginal symptoms. 3. No evidence of congestive heart failure on exam. 4. Weakness and dyspnea on exertion, likely secondary to her anemia. Iron studies have returned. She has a low iron level. She had been admitted with GI bleeding in early August. She was found to have severe esophagitis at that time. Her hemoglobin is stable this admission. However, her baseline hemoglobin is usually in the 13-14 range. She is currently not on any iron supplementation. RECOMMENDATIONS: 1. Continue to hold antihypertensive medications. Tolerate moderate elevations in her systolic pressure. 2. Treatment of her iron deficiency anemia. We will leave this to the hospitalist service and her primary care provider. 3. No further cardiac testing at this time. 4. Keep well hydrated.
[2016-09-23] MEDS: ACETAMINOPHEN 325 MG TAB PO PRN ×3 (10:31→23:18)
--- NOTE | 2016-09-23 13:59 | Progress Note ---
Subjective Date of Service: Sep 23, 2016. Subjective Pt evaluation today including: conversation w/ patient, physical exam, chart review, lab review, review of studies, review of inpatient medication list Still not feeling well. Still having lightheadedness when standing up. No chest pain , no sob. Had constipation yesterday but had BM last night. Problem List Medical Problems: (1) Anemia Status: Acute (2) Dizziness Status: Acute (3) GI bleed Status: Acute (4) Pneumonia Status: Acute (5) SOB (shortness of breath) Status: Acute (6) Weakness Status: Acute Review of Systems All Other Systems: Reviewed and Negative Medications Acetaminophen (Tylenol Tab) 650 mg Q4H PRN PO Last administered on 09/23/16 10:31; Admin Dose 650 MG; Start 09/19/16 at 22:45; Stop 10/19/16 at 22:44 Cholecalciferol (Vitamin D Tab) 1,000 inter.unit DAILY PO Last administered on 08:28; Admin Dose 1,000 INTER.UNIT; Start 09/20/16 at 09:00; Stop 10/20 at 08:59 Desonide (Desowen 0.05% Crm) 1 appln BID EXT Last administered on 09/23/16 08: 28; Admin Dose 1 APPLN; Start 09/20/16 at 09:00; Stop 10/20/16 at 08:59 Docusate Sodium 100 mg 100 mg BID PO Last administered on 09/23/16 08:29; Admin Dose 100 MG; Start 09/22/16 at 21:00; Stop 10/22/16 at 20:59 Ferric Sodium Gluconate/Sodium Chloride (Ferrlecit IV/ Nss 100ml) 110 ml @ 110 mls/hr TODAY IV; Start 09/23/16 at 10:45; Stop 09/23/16 at 11:44; Status UNV Heparin Sodium (Porcine) (Heparin Sq 5000 Unit/0.5ml) 5,000 unit Q8 SQ Last administered on 09/23/16 06:14; Admin Dose 5,000 UNIT; Start 09/22/16 at 22:00 ; Stop 10/22/16 at 21:59 Hydralazine HCl (HydrALAZINE INJ) 10 mg Q4H PRN IV.; Start 09/19/16 at 22:45 Levothyroxine Sodium (Synthroid Tab) 125 mcg DAILYBB PO Last administered on 06:13; Admin Dose 125 MCG; Start 09/20/16 at 06:00; Stop 10/20/16 at 06: 59 Miscellaneous Information (Order Awaiting Action) 1 ea QS N/A; Start 09/20/16 at 00:00; Stop 10/20/16 at 00:00 Multivitamins (Multivitamin Tab) 1 tab DAILY PO Last administered on 09/23/16 08:28; Admin Dose 1 TAB; Start 09/20/16 at 09:00; Stop 10/20/16 at 08:59 Nitroglycerin (Nitrostat Tab) 0.4 mg PRN UT; Start 09/19/16 at 22:45; Stop 10/19 at 22:44 Ondansetron HCl (Zofran Inj) 4 mg Q6H PRN IV; Start 09/19/16 at 22:45; Stop at 22:44 Pantoprazole Sodium (Protonix Tab) 40 mg BID PO Last administered on 09/23/16 08:29; Admin Dose 40 MG; Start 09/20/16 at 21:00; Stop 10/20/16 at 20:59 Polyethylene (Miralax Powder Packet) 17 gm DAILY PRN PO; Start 09/22/16 at 17: 00; Stop 10/22/16 at 16:59 Sucralfate (Carafate Susp) 1 gm BID@0700,1615 PO Last administered on 09/23/16 08:30; Admin Dose 1 GM; Start 09/20/16 at 07:00; Stop 10/20/16 at 06:59 Objective Vital Signs Date Time Temp Pulse Resp B/P Pulse Ox O2 Delivery O2 Flow Rate FiO2 09/23/16 11:28 36.9 76 16 160/75 95 09/23/16 08:00 Room Air 09/23/16 07:41 36.5 72 18 168/75 95 Room Air 09/23/16 04:00 Room Air 09/23/16 03:57 36.3 67 18 176/78 99 Room Air 09/23/16 01:27 93 90/57 09/23/16 01:26 89 107/67 09/23/16 01:24 84 150/76 09/23/16 00:00 Room Air 09/22/16 23:57 36.2 76 16 160/75 96 Room Air 09/22/16 20:00 Room Air 09/22/16 19:34 36.8 79 20 182/83 95 Room Air 09/22/16 16:00 Room Air 09/22/16 15:27 85 22 159/72 09/22/16 15:25 78 20 152/75 09/22/16 15:24 36.2 73 18 170/83 97 Physical Exam Comments: nad, aox3 s1 s2 rrr, no murmurs appreciated ctab no w/r/r abd soft nt/nd +BS no LE edema Laboratory Results Last 24 Hours Test 09/23/16 06:35 White Blood Count 5.42 K/uL Red Blood Count 3.63 M/uL Hemoglobin 10.3 g/dL Hematocrit 30.8 % Mean Corpuscular Volume 84.8 fL Mean Corpuscular Hemoglobin 28.4 pg Mean Corpuscular Hemoglobin Concent 33.4 g/dl Platelet Count 276 K/uL Mean Platelet Volume 10.3 fL Neutrophils (%) (Auto) 49.8 % Lymphocytes (%) (Auto) 28.0 % Monocytes (%) (Auto) 15.3 % Eosinophils (%) (Auto) 5.4 % Basophils (%) (Auto) 1.3 % Neutrophils # (Auto) 2.70 K/uL Lymphocytes # (Auto) 1.52 K/uL Monocytes # (Auto) 0.83 K/uL Eosinophils # (Auto) 0.29 K/uL Basophils # (Auto) 0.07 K/uL RDW Standard Deviation 44.6 fL RDW Coefficient of Variation 14.4 % Immature Granulocyte % (Auto) 0.2 % Immature Granulocyte # (Auto) 0.01 K/uL Absolute Reticulocyte Count 0.04 10^6/uL Percent Reticulocyte Count 1.2 % Sodium Level 138 mmol/L Potassium Level 4.0 mmol/L Chloride Level 104 mmol/L Carbon Dioxide Level 29 mmol/L Anion Gap 5.0 mmol/L Blood Urea Nitrogen 22 mg/dl Creatinine 0.96 mg/dl Est Creatinine Clear Calc Drug Dose 37.6 ml/min Estimated GFR () 62.5 Estimated GFR (Non- 53.9 BUN/Creatinine Ratio 23.1 Random Glucose 101 mg/dl Calcium Level 9.6 mg/dl Magnesium Level 2.7 mg/dl Iron Level 17 mcg/dl Total Iron Binding Capacity 387 mcg/dl Transferrin 301 mg/dl Transferrin % Saturation 4 % Ferritin 34.1 ng/ml Vitamin B12 Level 1020 pg/mL Folate > 24.00 ng/mL Assessment and Plan 1. Labile HTN - off any antihypertensives today not requiring prn hydralazine - goal is <160 ideally but she did drop her BP with 2.5 mg amlodipine yesterday - maintaining max sBP 160-170 systolic with significant orthostatic hypotension down to 90s last night - some options for BP spikes could include prn clonidine but may precipitate significant bp drops or prn candesartan which is also short acting but not as potent as clonidine 2. CAD s/p cabg and stents - statin intolerant - not on aspirin, but may have been stopped due to esophagitis and h/o GI bleeding 3. Diastolic dysfunction - preserved EF - cardio following 4 hypothyroid - cont levothyroxine 5. dvt ppx with hsq 6. anemia - needs to have stool occult done - will give IV iron for now as she does have issues with constipation - she will receive 2 doses while she is here Continued [facility] stay due to: multiple IV medications needed Discharge planning: uncertain
[2016-09-23] MEDS ORDERED: SODIUM CHLORIDE 0.9% 1000ML 1,000 ML IV SCH (14:00)
[2016-09-23] MEDS ORDERED: SODIUM FERRIC GLUCONATE IV 125 MG in SODIUM CHLORIDE 0.9% 100ML 100 ML IV SCH (14:15)
[2016-09-24] VITALS (10 sets, daily range): BP systolic 112–199; BP diastolic 58–95; PULSE 82–106; TEMP 36.3–36.8; O2SAT 94–98
[2016-09-24] MEDS: LEVOTHYROXINE 125 MCG TAB PO SCH (05:47)
[2016-09-24] MEDS: SUCRALFATE 1 GM/10 ML UDC PO SCH ×2 (05:48→16:38)
[2016-09-24] MEDS: HEPARIN SOD 5000 UNIT/0.5 ML CARP SQ SCH ×3 (05:48→21:35)
[2016-09-24] MEDS: POLYETHYLENE (MIRALAX) 17 GM PACK PO PRN (05:54)
[2016-09-24 07:11] LABS: BASO % 1.2 %; BASO ABS # 0.07 K/uL (0-0.2); COMPLETE YES; EOS % 4.6 %; HEMATOCRIT 29.6 % (37-47); IG% 0.2 %; LYMPH % 24.6 %; LYMPH ABS # 1.38 K/uL (1.2-3.4); MEAN CELL VOLUME 85.1 fL (80-100); MEAN CORPUSCULAR HEMOGLOBIN 28.2 pg (25-34); MEAN CORPUSCULAR HGB CONC 33.1 g/dl (32-36); MEAN PLATELET VOLUME 9.9 fL (7.4-10.4); MONO % 14.3 %; NEUT % 55.1 %; PLATELET COUNT 259 K/uL (130-400); RED BLOOD COUNT 3.48 M/uL (4.2-5.4); WHITE BLOOD COUNT 5.61 K/uL (4.8-10.8)
[2016-09-24 07:45] LABS: BUN/CREATININE RATIO 22.7 (10-20); CALCIUM 9.9 mg/dl (8.5-10.1); CREATININE 0.94 mg/dl (0.60-1.20); POTASSIUM 4.1 mmol/L (3.5-5.1)
[2016-09-24] MEDS: PANTOprazole SOD 40 MG TAB PO SCH ×2 (08:55→20:28)
[2016-09-24] MEDS: MULTIVITAMIN TAB PO SCH (08:55)
[2016-09-24] MEDS: DOCUSATE SODIUM 100 MG CAP PO SCH ×2 (08:55→20:27)
[2016-09-24] MEDS: DESONIDE CR 15 GM TUBE EXT SCH ×2 (08:55→20:27)
[2016-09-24] MEDS: CHOLECALCIFEROL 1000 INTER.UNIT TAB PO SCH (08:55)
[2016-09-24] MEDS ORDERED: NURSING DECISION MEDICATION ORDER SCH (11:30)
[2016-09-24] MEDS ORDERED: CHLORASEPTIC 1.4% SOLN 180 ML BTL MT PRN (11:45)
[2016-09-24] MEDS ORDERED: POLYETHYLENE (MIRALAX) 17 GM PACK PO ONE (12:30)
[2016-09-24] MEDS ORDERED: NURSING VERBAL MED ORDER ONE (12:30)
[2016-09-24] MEDS ORDERED: POLY335019 PO (12:31)
--- NOTE | 2016-09-24 12:32 | Discharge Instructions ---
Discharge Instructions Date of Service Sep 24, 2016. Admission Reason for Admission: Dizziness, Hypertensive Urgency Discharge Discharge Diagnosis / Problem: Orthostatic hypotension Discharge Goals Goal(s): Improve function, Increase independence Activity Recommendations Activity Limitations: resume your previous activity . Current Hospital Diet Patient's current hospital diet: AHA Diet (Heart Healthy) Discharge Diet Recommended Diet: AHA Diet (Heart Healthy) Pending Studies Studies pending at discharge: no Medical Emergencies . Who to Call and When: Medical Emergencies: If at any time you feel your situation is an emergency, please call 911 immediately. . Non-Emergent Contact Non-Emergency issues call your: Primary Care Provider . . "Provider Documentation" section prepared by Sandra Kuo. . VTE Core Measure Inpt VTE Proph given/why not?: SCD's
--- NOTE | 2016-09-24 12:33 | Discharge Summary ---
Discharge Summary Date of Service Sep 24, 2016. Discharge Summary Admission Date: Sep 19, 2016 at 22:32 Discharge Date: Sep 24, 2016 Discharge Disposition: half-way facility Principal Diagnosis: UTI & pneumonia Immunizations: Have You Had Influenza Vaccine: Yes History of Tetanus Vaccine?: Yes History of Pneumococcal: Yes History of Hepatitis B Vaccine: No Medication Reconciliation New Medications: Magnesium Hydroxide (Milk Of Magnesia) 30 Ml Susp 30 ML PO DAILY PRN for constipation for 30 Days, #900 ML Polyethylene Glycol 3350 (Miralax) 1 Pow Pow 17 GM PO DAILY for Constipation, #527 GM Continued Medications: Cholecalciferol (Vitamin D3) 1,000 Unit Tab 1 TAB PO DAILY for 30 Days, #30 TAB 5 Refills Desonide 0.05% (Desowen 0.05%) 60 Gm Cr 1 APPLN TOP BID for 14 Days, #60 GM Docusate Sodium (Stool Softener) 100 Mg Cap 100 MG PO BID PRN for Constipation Levothyroxine Sodium (Synthroid) 125 Mcg Tab 125 MCG PO DAILY, TAB Multivitamin (Multivitamin) Tab 1 TAB PO DAILY Nitroglycerin (Nitrostat) 0.4 Mg Sub 0.4 MG UT PRN, BTL Pantoprazole (Protonix) 40 Mg Tab 40 MG PO DAILY, #30 Sucralfate (Sucralfate) 1 Gm/10 Ml Susp 1 GM PO BID@0700,1615 for 14 Days Discontinued Medications: Atenolol (Tenormin) 25 Mg Tab 12.5 MG PO BID, TAB Doxycycline (Monohydrate) (Doxycycline) 100 Mg Cap 1 CAP PO DAILY Metronidazole (Topical) (Metronidazole) 1 % Gel 1 APPLN TOP DAILY, #60 Hospital Course The patient is an 86-year-old female who presents to the emergency department with intermittent dizziness began the morning prior to arrival. Her blood pressure was checked by her physical therapist and reportedly was low, but when checked by her visiting nurse was elevated, and has remained elevated during the hospital stay in the emergency department. She reports a mild nonproductive cough, shortness of breath and feels generally weak. Her BP during her hospital stay were very labile running from 170-190 systolic then dropping down to 90s systolic even without antihypertensive. She was given fluids for her orthostatic hypotension and all her antihypertensives were stopped with cardiology guidance. She was also found to have iron-deficiency anemia with known recent GI bleeding. Due to her constipation, she was given 2 doses of ferrlecit. She should be continued on oral iron supplementation, however, this should be started once her constipation has improved. She should also be on a bowel regimen once oral iron is started. On day of discharge, patient had another orthostatic hypotensive event, systolic of 100 with dizziness. I believe she also has an element of physical deconditioning and will benefit from a short SNF stay with PT. She otherwise has no chest pain, no sob, no abd pain. Vital Signs Date Time Temp Pulse Resp B/P Pulse Ox O2 Delivery O2 Flow Rate FiO2 09/25/16 12:00 95 Room Air 09/25/16 11:37 36.7 88 18 154/77 120/63 117/67 09/21/16 11:15 2.0 nad, aox3, anicteric, conjunctival pallor s1 s2 rrr, no murmurs appreciated ctab no w/r/r abd soft nt/nd +BS no LE edema 1. Labile HTN - off any antihypertensives today not requiring prn hydralazine - goal is <160 ideally but she did drop her BP with 2.5 mg amlodipine - tolerate some spike in BP 2. CAD s/p cabg and stents - statin intolerant - not on aspirin, but may have been stopped due to esophagitis and h/o GI bleeding 3. Diastolic dysfunction - preserved EF - cardio following 4 hypothyroid - cont levothyroxine 5. anemia - s/p 2 doses of ferrlecit - will need oral iron supplementation - needs bowel regimen with oral iron 6. constipation - daily senna/docusate - prn miralax - prn milk of mag Total Time Spent: Less than 30 minutes This includes examination of the patient, discharge planning, medication reconciliation, and communication with other providers. Discharge Instructions Please refer to the electronic Patient Visit Report (Discharge Instructions) for additional information. Additional Copies To Kamlesh Mcduffie M.D.
[2016-09-24] MEDS ORDERED: SODIUM FERRIC GLUCONATE IV 125 MG in SODIUM CHLORIDE 0.9% 100ML 100 ML IV SCH (14:15)
[2016-09-24] MEDS: ACETAMINOPHEN 325 MG TAB PO PRN ×2 (14:20→20:26)
--- NOTE | 2016-09-24 16:01 | Progress Note ---
Subjective Date of Service: Sep 24, 2016. Subjective Pt evaluation today including: conversation w/ patient, conversation w/ family , physical exam, lab review, review of studies, review of inpatient medication list Late note. Patient seen around noon today. Daughter at bedside. Still does not feel very well. Eating and drinking well. No BM yet and feels constipated. Received 2nd dose of iron IV. No chest pain, no sob. No urinary symptoms. Problem List Medical Problems: (1) Anemia Status: Acute (2) Dizziness Status: Acute (3) GI bleed Status: Acute (4) Pneumonia Status: Acute (5) SOB (shortness of breath) Status: Acute (6) Weakness Status: Acute Review of Systems All Other Systems: Reviewed and Negative Medications Acetaminophen (Tylenol Tab) 650 mg Q4H PRN PO Last administered on 09/24/16 14:20; Admin Dose 650 MG; Start 09/19/16 at 22:45; Stop 10/19/16 at 22:44 Cholecalciferol (Vitamin D Tab) 1,000 inter.unit DAILY PO Last administered on 08:55; Admin Dose 1,000 INTER.UNIT; Start 09/20/16 at 09:00; Stop 10/20 at 08:59 Desonide (Desowen 0.05% Crm) 1 appln BID EXT Last administered on 09/24/16 08: 55; Admin Dose 1 APPLN; Start 09/20/16 at 09:00; Stop 10/20/16 at 08:59 Docusate Sodium (coLACE CAP) 100 mg BID PO Last administered on 09/24/16 08:55 ; Admin Dose 100 MG; Start 09/22/16 at 21:00; Stop 10/22/16 at 20:59 Heparin Sodium (Porcine) (Heparin Sq 5000 Unit/0.5ml) 5,000 unit Q8 SQ Last administered on 09/24/16 13:05; Admin Dose 5,000 UNIT; Start 09/22/16 at 22:00 ; Stop 10/22/16 at 21:59 Hydralazine HCl (HydrALAZINE INJ) 10 mg Q4H PRN IV.; Start 09/19/16 at 22:45 Levothyroxine Sodium (Synthroid Tab) 125 mcg DAILYBB PO Last administered on 05:47; Admin Dose 125 MCG; Start 09/20/16 at 06:00; Stop 10/20/16 at 06: 59 Miscellaneous Information (Order Awaiting Action) 1 ea QS N/A; Start 09/20/16 at 00:00; Stop 10/20/16 at 00:00 Multivitamins (Multivitamin Tab) 1 tab DAILY PO Last administered on 09/24/16 08:55; Admin Dose 1 TAB; Start 09/20/16 at 09:00; Stop 10/20/16 at 08:59 Nitroglycerin (Nitrostat Tab) 0.4 mg PRN UT; Start 09/19/16 at 22:45; Stop 10/19 at 22:44 Ondansetron HCl (Zofran Inj) 4 mg Q6H PRN IV; Start 09/19/16 at 22:45; Stop at 22:44 Pantoprazole Sodium (Protonix Tab) 40 mg BID PO Last administered on 09/24/16 08:55; Admin Dose 40 MG; Start 09/20/16 at 21:00; Stop 10/20/16 at 20:59 Phenol (Chloraseptic 1.4% [place]) 1 sprays Q2H PRN MT; Start 09/24/16 at 11:45; Stop 10/24/16 at 11:44 Polyethylene (Miralax Powder Packet) 17 gm DAILY PRN PO Last administered on 05:54; Admin Dose 17 GM; Start 09/22/16 at 17:00; Stop 10/22/16 at 16:59 Sucralfate (Carafate Susp) 1 gm BID@0700,1615 PO Last administered on 09/24/16 05:48; Admin Dose 1 GM; Start 09/20/16 at 07:00; Stop 10/20/16 at 06:59 Objective Vital Signs Date Time Temp Pulse Resp B/P Pulse Ox O2 Delivery O2 Flow Rate FiO2 09/24/16 15:12 36.8 86 18 176/73 97 Room Air 89 147/77 95 152/76 09/24/16 14:19 89 97 09/24/16 12:00 95 Room Air 09/24/16 11:54 36.7 86 18 112/58 98 09/24/16 08:00 95 Room Air 09/24/16 07:48 36.8 86 18 151/63 95 09/24/16 04:02 Room Air 09/24/16 03:36 36.3 82 19 157/75 96 Room Air 09/24/16 00:02 Room Air 09/23/16 23:29 82 125/71 09/23/16 23:28 73 155/76 09/23/16 23:26 36.3 73 18 170/72 96 Room Air 09/23/16 20:04 Room Air 09/23/16 19:55 36.8 71 18 180/78 94 Room Air 09/23/16 16:15 36.7 75 18 136/74 97 09/23/16 16:00 Room Air Physical Exam Comments: nad, aox3, anicteric s1 s2 rrr, no murmurs appreciated ctab no w/r/r abd soft nt/nd +BS no LE edema Laboratory Results Last 24 Hours Test 09/24/16 07:00 White Blood Count 5.61 K/uL Red Blood Count 3.48 M/uL Hemoglobin 9.8 g/dL Hematocrit 29.6 % Mean Corpuscular Volume 85.1 fL Mean Corpuscular Hemoglobin 28.2 pg Mean Corpuscular Hemoglobin Concent 33.1 g/dl Platelet Count 259 K/uL Mean Platelet Volume 9.9 fL Neutrophils (%) (Auto) 55.1 % Lymphocytes (%) (Auto) 24.6 % Monocytes (%) (Auto) 14.3 % Eosinophils (%) (Auto) 4.6 % Basophils (%) (Auto) 1.2 % Neutrophils # (Auto) 3.09 K/uL Lymphocytes # (Auto) 1.38 K/uL Monocytes # (Auto) 0.80 K/uL Eosinophils # (Auto) 0.26 K/uL Basophils # (Auto) 0.07 K/uL RDW Standard Deviation 45.0 fL RDW Coefficient of Variation 14.5 % Immature Granulocyte % (Auto) 0.2 % Immature Granulocyte # (Auto) 0.01 K/uL Sodium Level 137 mmol/L Potassium Level 4.1 mmol/L Chloride Level 105 mmol/L Carbon Dioxide Level 29 mmol/L Anion Gap 3.0 mmol/L Blood Urea Nitrogen 21 mg/dl Creatinine 0.94 mg/dl Est Creatinine Clear Calc Drug Dose 38.8 ml/min Estimated GFR () 64.1 Estimated GFR (Non- 55.3 BUN/Creatinine Ratio 22.7 Random Glucose 101 mg/dl Calcium Level 9.9 mg/dl Assessment and Plan 1. Labile HTN - off any antihypertensives - goal is <160 ideally but she did drop her BP with 2.5 mg amlodipine - tolerating some BP spikes without chest pain/symptoms 2. CAD s/p cabg and stents - statin intolerant - not on aspirin, but may have been stopped due to esophagitis and h/o GI bleeding 3. Diastolic dysfunction - preserved EF - cardio following 4 hypothyroid - cont levothyroxine 5. dvt ppx with hsq 6. anemia - needs to have stool occult done - given 2 infusions of ferrlecit - will eventually need po iron supplementation but this will complicate her consitpation further without aggressive bowel regimen Continued [facility] stay due to: multiple IV medications needed Discharge planning: uncertain
[2016-09-25] VITALS (9 sets, daily range): BP systolic 100–173; BP diastolic 53–83; PULSE 86–91; TEMP 36.7–36.9; O2SAT 94–98
[2016-09-25] MEDS: SUCRALFATE 1 GM/10 ML UDC PO SCH (06:18)
[2016-09-25] MEDS: LEVOTHYROXINE 125 MCG TAB PO SCH (06:18)
[2016-09-25] MEDS: HEPARIN SOD 5000 UNIT/0.5 ML CARP SQ SCH ×2 (06:21→13:52)
[2016-09-25 06:25] LABS: HEMATOCRIT 29.8 % (37-47); MEAN CELL VOLUME 84.4 fL (80-100); MEAN CORPUSCULAR HEMOGLOBIN 27.8 pg (25-34); MEAN CORPUSCULAR HGB CONC 32.9 g/dl (32-36); MEAN PLATELET VOLUME 10.4 fL (7.4-10.4); PLATELET COUNT 247 K/uL (130-400); RED BLOOD COUNT 3.53 M/uL (4.2-5.4); WHITE BLOOD COUNT 6.07 K/uL (4.8-10.8)
[2016-09-25] MEDS: CHOLECALCIFEROL 1000 INTER.UNIT TAB PO SCH (08:46)
[2016-09-25] MEDS: DESONIDE CR 15 GM TUBE EXT SCH (08:46)
[2016-09-25] MEDS: MULTIVITAMIN TAB PO SCH (08:46)
[2016-09-25] MEDS: PANTOprazole SOD 40 MG TAB PO SCH (08:46)
[2016-09-25] MEDS: POLYETHYLENE (MIRALAX) 17 GM PACK PO PRN (08:46)
[2016-09-25] MEDS: DOCUSATE SODIUM 100 MG CAP PO SCH (08:46)
[2016-09-25] MEDS: ACETAMINOPHEN 325 MG TAB PO PRN (10:02)
[2016-09-25] MEDS ORDERED: MOML PO (10:15)
[2016-09-25] MEDS ORDERED: MAGNESIUM HYDROXIDE SUSP 30 ML UDC PO PRN (10:30)
[2017-03-22] MEDS ORDERED: CRD200 PO (15:39)
[2017-03-22] MEDS ORDERED: LEVO137T3 PO (15:39)
[2017-03-22] MEDS ORDERED: CEPH500C PO (15:39)
== END 2016-09-25 17:30 | DRG 312 ==
LOC: ENRESERVDT → ENRESERVTM → C.EDB 16:47 → C.2T 22:32
PROVIDERS: ADMIT Hospitalist; ATTEND Internal Medicine
DX: I95.1 Orthostatic hypotension (principal); J18.9 Pneumonia, unspecified organism; N39.0 Urinary tract infection, site not specified; J90 Pleural effusion, not elsewhere classified; D50.0 Iron deficiency anemia secondary to blood loss (chronic); K59.00 Constipation, unspecified; I10 Essential (primary) hypertension; I25.10 Atherosclerotic heart disease of native coronary artery without angina pectoris; Z95.1 Presence of aortocoronary bypass graft; E03.9 Hypothyroidism, unspecified; K21.0 Gastro-esophageal reflux disease with esophagitis; I48.0 Paroxysmal atrial fibrillation; Z86.73 Personal history of transient ischemic attack (TIA), and cerebral infarction without residual deficits; I65.29 Occlusion and stenosis of unspecified carotid artery; I25.2 Old myocardial infarction

== ENCOUNTER → 2016-11-14 | Outpatient (CLI) | payer OTHER ==
[~2016-11-14] MED LIST changes: +ACET-1311 PO; -ATEN-173 PO; +BENZ10LO2 PO; +CEPH500C PO; +CLON0.1T12 PO; +CRD200 PO; -DOXY-300 PO; +FERR1TAB13 PO; +LEVO137T3 PO; +MAGNSUS73 PO; +MIDODRINE PO; +MOML PO; +POLY335019 PO; +POLY99.02 OPB; +SENN8.6T9 PO; +SODI1TAB PO; +SODIENE PR; +SYN150 PO
--- NOTE | 2016-11-14 10:02 | DIAGNOSTIC IMAGING REPORT ---
CHEST 2 VIEWS ROUTINE CLINICAL HISTORY: R07.89 Left-sided chest wall [id number] dyspnea COMPARISON STUDY: 09/21/2016 FINDINGS: Prior median sternotomy. Lungs are clear. Diaphragms are smooth. IMPRESSION: No acute process. Electronically signed by: Freddy Sherman M.D. 11/14/2016 10:01 AM Dictated Date/Time: 11/14/2016 10:00 AM
--- NOTE | 2016-11-14 10:04 | DIAGNOSTIC IMAGING REPORT ---
LEFT RIBS UNILATERAL MIN 2 VIEWS CLINICAL HISTORY: Left chest wall pain COMPARISON STUDY: No previous studies for comparison. FINDINGS: There are postsurgical changes of a midline sternotomy. No pneumothorax is visualized. No left-sided rib fractures are evident. No destructive lesions are visualized on conventional radiographic imaging. IMPRESSION: No evidence of pneumothorax. No left-sided rib fractures are visualized. Electronically signed by: Clay Rivas M.D. 11/14/2016 10:03 AM Dictated Date/Time: 11/14/2016 10:02 AM
== END | disposition home or self-care (01) ==
LOC: C.LAB1850 09:40
PROVIDERS: ATTEND Internal Medicine
DX: R07.89 Other chest pain (principal)

== ENCOUNTER 2016-11-19 17:33 | Emergency (ER) | payer OTHER ==
[~2016-11-19] VITALS: Ht 165.1 cm; Wt 59.6 kg
[~2016-11-19 17:33] MED LIST changes: -ACET-1311 PO; -BENZ10LO2 PO; -CEPH500C PO; -CLON0.1T12 PO; -CRD200 PO; -FERR1TAB13 PO; -LEVO137T3 PO; -MAGNSUS73 PO; -METR0.7536 TOP; -MIDODRINE PO; -MOML PO; -POLY99.02 OPB; -SENN8.6T9 PO; -SODI1TAB PO; -SODIENE PR; -SYN150 PO
[2016-11-19] MEDS ORDERED: SODIUM CHLORIDE 0.9% 1000ML 500 ML IV STA (17:45)
[2016-11-19] MEDS ORDERED: LORAZEPAM 2 MG/ML 1 ML VIAL IV STA (17:45)
[2016-11-19] MEDS ORDERED: FENTANYL CITRATE INJ 50 MCG/1 ML 2 ML VIAL IV PRN ×2 (17:45)
[2016-11-19] MEDS ORDERED: ONDANSETRON INJ 2 MG/ML 2 ML VIAL IV STA (17:45)
[2016-11-19] MEDS ORDERED: FERR1TAB13 PO (18:11)
[2016-11-19] MEDS ORDERED: MIDODRINE PO (18:12)
[2016-11-19] MEDS ORDERED: MOML PO (18:14)
[2016-11-19 18:15] VITALS: Ht 165.1 cm; Wt 59.6 kg
--- NOTE | 2016-11-19 18:18 | EMERGENCY ROOM VISIT NOTE ---
History Report prepared by [place]: Adrian Monroy Under the Supervision of: Dr. Que Chow M.D. First contact with patient: 17:34 Chief Complaint: SYNCOPE Stated Complaint: SYNCOPE, FALL, HIP PAIN History of Present Illness The patient is an 86 year old demented female who presents to the Emergency Room with a suspected syncopal episode. The patient was found on the ground by her son about 1.5 hours WOMEN NURSE after a suspected episode of syncope. The son states that she was on the ground less than 30 minutes. The patient's dementia has been worsening recently. The patient complains of feeling like she is falling as she lays on the ED bed. She also complains of left hip pain. History is limited secondary to dementia. She has not had any fevers, nausea, or vomiting. She has been short of breath lately per son. Source of History: patient, family (son) History Limited By: dementia Onset: approximately 1.5 hours WOMEN NURSE Position: other (global) Quality: other (suspected syncope) Timing: resolved Associated Symptoms: + SOB, No fevers, No nausea, No vomiting Review of Systems ROS is unobtainable secondary to dementia. Past Medical & Surgical Medical Problems: (1) Acid reflux (2) Anemia (3) Coronary artery disease (4) Gastrointestinal bleed (5) HTN (hypertension) (6) Hypothyroidism (7) Myocardial infarction (8) Vertigo Surgical Problems: (1) Hx of CABG Family History Cancer Heart disease Social History Smoking Status: Never Smoker Alcohol Use: none Drug Use: none Marital Status: Housing Status: lives alone Occupation Status: retired Current/Historical Medications Scheduled Cholecalciferol (Vitamin D3), 1 TAB PO DAILY Ferrous Sulfate (Kp Ferrous Sulfate), 1 TAB PO DAILY Levothyroxine Sodium (Synthroid), 125 MCG PO DAILY Multivitamin (Multivitamin), 1 TAB PO DAILY Nitroglycerin (Nitrostat), 0.4 MG UT PRN Pantoprazole (Protonix), 40 MG PO DAILY Polyethylene Glycol 3350 (Miralax), 17 GM PO DAILY Sucralfate (Sucralfate), 1 GM PO BID@0700,1615 [Mitodrine], 2.5 MG PO TID Scheduled PRN Docusate Sodium (Stool Softener), 100 MG PO BID PRN for Constipation Magnesium Hydroxide (Milk Of Magnesia), 30 ML PO DAILY PRN for Constipation Allergies Coded Allergies: Morphine (Verified Allergy, Mild, Itching, 09/19/16) and erythema at site of injection Penicillins (Verified Allergy, Unknown, 09/19/16) Atorvastatin (Verified Adverse Reaction, Unknown, 09/19/16) Ezetimibe (Verified Adverse Reaction, Unknown, 09/19/16) Physical Exam Vital Signs Date Time Temp Pulse Resp B/P (MAP) Pulse Ox O2 Delivery O2 Flow Rate FiO2 11/19/16 19:54 36.8 98 37 185/97 92 11/19/16 19:52 36.8 98 37 185/97 92 11/19/16 19:28 98 92 11/19/16 19:23 98 37 93 11/19/16 19:22 185/97 11/19/16 19:18 102 33 11/19/16 19:13 103 31 11/19/16 19:08 102 23 11/19/16 19:03 107 19 11/19/16 19:02 104 11/19/16 18:38 92 Room Air 11/19/16 18:29 36.8 90 18 189/96 91 Room Air 11/19/16 18:29 189/96 11/19/16 18:15 118 30 207/134 Room Air Physical Exam GENERAL: Patient is anxious, upset, and agitated. HEENT: Abrasion to the left forehead, no bony stepoff, no laceration requiring repair. Mucous membranes are dry. NECK: No stridor, no adenopathy, no meningismus, trachea is midline, no posterior C-spine stepoff. LUNGS: Crackles on the right, left lung is clear. HEART: Tachycardic with a regular rhythm, no murmurs. ABDOMEN: Soft, nontender, bowel sounds positive, no hernias, no peritonitis. EXTREMITIES: Skin tear to the posterior left elbow, no evidence for underlying fracture, no evidence for laceration requiring repair. Left lower extremity is shortened, pain with any movement of the left hip consistent with fracture, no obvious neurovascular compromise. NEUROLOGIC: No acute motor or sensory deficits, no focal weakness. Confused and agitated. SKIN: No rash, no jaundice, no diaphoresis. Medical Decision & Procedures ER Provider Diagnostic Interpretation: X-ray results as stated below per interpretation by me and the radiologist: Radiology results as stated below per my review and radiologist interpretation: CT OF THE CERVICAL SPINE CLINICAL HISTORY: Trauma. Neck pain. Intracranial hemorrhage. COMPARISON STUDY: No previous studies for comparison. CT DOSE: TECHNIQUE: CT scan of the cervical spine was performed from the skull base to the thoracic inlet. Images are reviewed in the axial, sagittal, and coronal planes. IV contrast was not administered for this examination. FINDINGS: The visualized portions of the lung apices reveal no evidence of pneumothorax. The prevertebral soft tissues are normal. No fractures or traumatic subluxations are visualized. There are multilevel degenerative changes. 2.4 mm of retrolisthesis of C5 on C6 is likely arthritic. IMPRESSION: 1. No evidence of acute fracture or traumatic subluxation 2. Multilevel degenerative change. 2.4 mm of retrolisthesis of C5 on C6 is likely arthritic Electronically signed by: Clay Rivas M.D. 11/19/2016 6:35 PM Dictated Date/Time: 11/19/2016 6:[address] HEAD WITHOUT CONTRAST (CT) CLINICAL HISTORY: Confusion status post head trauma. COMPARISON STUDY: 08/31/2016 TECHNIQUE: Axial CT of the brain is performed from the vertex to the skull base. IV contrast was not administered for this examination. CT DOSE: 1026.13 mGy.cm FINDINGS: There is a small left convexity subdural hematoma measuring 4 mm in maximal thickness. There is trace hemorrhage within the left vertex, likely subarachnoid. There is no CT evidence of acute cortical infarction. There is no midline shift. There are patchy white matter hypodensities likely on a small vessel basis. There is no evidence of pathologic ventricular dilatation. There is no evidence of acute sinusitis. No calvarial fractures are visualized. IMPRESSION: 1. Interval development of a small left convexity subdural hematoma measuring 4 mm in maximal thickness 2. Trace hemorrhage within the left vertex, likely subarachnoid. 3. No calvarial fractures identified Electronically signed by: Clay Rivas M.D. 11/19/2016 6:31 PM Dictated Date/Time: 11/19/2016 6:28 PM AP PELVIS AND LEFT HIP 3 VIEWS CLINICAL HISTORY: Left hip pain status post trauma COMPARISON STUDY: No previous studies for comparison. FINDINGS: There is a subcapital left hip fracture. There is no SI joint diastases. There is no symphysis diastases. Postsurgical changes are present within the lower lumbar spine. IMPRESSION: Subcapital left hip fracture. Electronically signed by: Clay Rivas M.D. 11/19/2016 7:36 PM Dictated Date/Time: 11/19/2016 7:35 PM CHEST ONE VIEW PORTABLE CLINICAL HISTORY: Altered mental status and weakness COMPARISON STUDY: 11/14/2016 FINDINGS: The cardiac and mediastinal contours remain stable. There are postsurgical changes of a midline sternotomy. There is mild interstitial thickening but no evidence of overt failure. There is no lobar consolidation. There are no pleural effusions.[ IMPRESSION: No active disease in the chest. Electronically signed by: Clay Rivas M.D. 11/19/2016 7:35 PM Dictated Date/Time: 11/19/2016 7:34 PM Laboratory Results 11/19/16 18:55 Red Blood Count 4.42, Mean Corpuscular Volume 83.3, Mean Corpuscular Hemoglobin 28.1, Mean Corpuscular Hemoglobin Concent 33.7, Mean Platelet Volume 10.7, Neutrophils (%) (Auto) 86.6, Lymphocytes (%) (Auto) 5.3, Monocytes (%) (Auto) 7.3, Eosinophils (%) (Auto) 0.0, Basophils (%) (Auto) 0.1, Neutrophils # (Auto) 14.52, Lymphocytes # (Auto) 0.88, Monocytes # (Auto) 1.23, Eosinophils # (Auto) 0.00, Basophils # (Auto) 0.02 11/19/16 18:55 Test 11/19/16 18:50 11/19/16 18:55 11/19/16 19:33 Urine Color YELLOW Urine Appearance CLEAR (CLEAR) Urine pH 7.0 (4.5-7.5) Urine Specific [place] 1.015 (1.000-1.030) Urine Protein 1+ (NEG) Urine Glucose (UA) NEG (NEG) Urine Ketones NEG (NEG) Urine Occult Blood TRACE (NEG) Urine Nitrite POS (NEG) Urine Bilirubin NEG (NEG) Urine Urobilinogen NEG (NEG) Urine Leukocyte Esterase NEG (NEG) Urine WBC (Auto) 1-5 /hpf (0-5) Urine RBC (Auto) 0-4 /hpf (0-4) Urine Hyaline Casts (Auto) 10-30 /lpf (0-5) Urine Epithelial Cells (Auto) >30 /lpf (0-5) Urine Bacteria (Auto) 1+ (NEG) Urine Renal Epithelial Cells /lpf (0-5) White Blood Count 16.76 K/uL (4.8-10.8) Red Blood Count 4.42 M/uL (4.2-5.4) Hemoglobin 12.4 g/dL (12.0-16.0) Hematocrit 36.8 % (37-47) Mean Corpuscular Volume 83.3 fL (80-100) Mean Corpuscular Hemoglobin 28.1 pg (25-34) Mean Corpuscular Hemoglobin Concent 33.7 g/dl (32-36) Platelet Count 233 K/uL (130-400) Mean Platelet Volume 10.7 fL (7.4-10.4) Neutrophils (%) (Auto) 86.6 % Lymphocytes (%) (Auto) 5.3 % Monocytes (%) (Auto) 7.3 % Eosinophils (%) (Auto) 0.0 % Basophils (%) (Auto) 0.1 % Neutrophils # (Auto) 14.52 K/uL (1.4-6.5) Lymphocytes # (Auto) 0.88 K/uL (1.2-3.4) Monocytes # (Auto) 1.23 K/uL (0.11-0.59) Eosinophils # (Auto) 0.00 K/uL (0-0.5) Basophils # (Auto) 0.02 K/uL (0-0.2) RDW Standard Deviation 47.8 fL (36.4-46.3) RDW Coefficient of Variation 15.6 % (11.5-14.5) Immature Granulocyte % (Auto) 0.7 % Immature Granulocyte # (Auto) 0.11 K/uL (0.00-0.02) Red Blood Cell Morphology Unremarkable Prothrombin Time 11.6 SECONDS (9.0-12.0) Prothromb Time International Ratio 1.1 (0.9-1.1) Activated Partial Thromboplast Time 26.2 SECONDS (21.0-31.0) Partial Thromboplastin Ratio 1.0 Anion Gap 8.0 mmol/L (3-11) Est Creatinine Clear Calc Drug Dose 33.6 ml/min Estimated GFR () 53.0 Estimated GFR (Non- 45.7 BUN/Creatinine Ratio 24.3 (10-20) Calcium Level 9.4 mg/dl (8.5-10.1) Total Bilirubin 0.5 mg/dl (0.2-1) Aspartate Amino Transf (AST/SGOT) 28 U/L (15-37) Alanine Aminotransferase (ALT/SGPT) 22 U/L (12-78) Alkaline Phosphatase 153 U/L (45-117) Total Creatine Kinase 190 U/L (26-192) Troponin I 0.099 ng/ml (0-0.045) Total Protein 7.3 gm/dl (6.4-8.2) Albumin 3.3 gm/dl (3.4-5.0) Globulin 4.0 gm/dl (2.5-4.0) Albumin/Globulin Ratio 0.8 (0.9-2) Thyroid Stimulating Hormone (TSH) 0.110 uIu/ml (0.300-4.500) Bedside Glucose 111 mg/dl (70-90) Laboratory results reviewed by me. Medications Administered Medications (Trade) Dose Ordered Sig/[place] Route Start Time Stop Time Status Last Admin Dose Admin Sodium Chloride 500 ml @ 999 mls/hr Q31M STAT IV 11/19/16 17:45 11/19/16 18:15 DC 11/19/16 17:45 999 MLS/HR Ondansetron HCl (Zofran Inj) 4 mg NOW STAT IV 11/19/16 17:45 11/19/16 17:49 DC 11/19/16 17:45 4 MG Lorazepam (Ativan Inj) 0.5 mg NOW STAT IV 11/19/16 17:45 11/19/16 17:49 DC 11/19/16 17:45 0.5 MG Fentanyl Citrate (Fentanyl Inj) 50 mcg Q30M PRN IV 11/19/16 17:45 11/19/16 20:03 DC 11/19/16 18:13 50 MCG ECG Indication: syncope Rate (beats per minute): 107 Rhythm: sinus tachycardia Findings: no acute ischemic change, no ectopy ED Course 1739: The patient was evaluated in room A3. A complete history and physical exam was performed. 1744: Fentanyl 50 mcg IV, Fentanyl 50 mcg IV, Ativan 0.5 mg IV, Zofran 4 mg IV, NSS 500 ml @ 999 mls/hr. 1847: Reassessed the patient. Updated her son, who prefers that the patient be transferred to [facility]. He does not believe that his mother would want CPR. 1907: Discussed the case with Dr. De Leon, [facility] ED. The patient was accepted for transfer. [facility] is sending a helicopter. 1944: Discussed the hip fracture with the family. [facility] is preparing the patient for transport. 1999: The patient has departed. Medical Decision Differential diagnosis includes intracranial bleeding or stroke, dementia, cervical spine injury, infection, pneumonia, dehydration, anemia, electrolyte imbalance, UTI, pelvic or hip fracture. Medication Reconciliation: I attest that I have personally reviewed the patient' s current medication list. Blood pressure screening: Patient was found to have a slightly elevated blood pressure likely due to circumstances. I do not believe that the patient requires hypertension monitoring. There is a moderate leukocytosis, this could be consistent with infection or the stress of her current situation. No worrisome anemia. Urinalysis shows possible infection versus contamination. There was no significant electrolyte abnormality or kidney failure. No hepatitis. No coagulopathy. TSH was low consistent likely with her thyroid medication use. EKG showed a sinus tachycardia, no acute ischemia. Cardiac enzyme testing times one is somewhat elevated, this could be consistent with cardiac injury or strain. Brain CT shows a subdural hematoma and some subarachnoid bleeding. No midline shift. C- spine CT shows arthritis, no acute fracture. Chest x-ray does not show pneumonia or CHF. There was no pneumothorax. Pelvis and left hip films show evidence for a left hip fracture, no pelvic fracture seen. The patient was quite agitated and almost combative. She was given IV Ativan, IV Zofran and IV fentanyl, she received IV saline. She did well with this medication, she was much more calm and her pain seemed more controlled. With the findings of intracranial bleeding, I discussed the situation with her son. The patient is being transferred via [facility] helicopter to [facility] in [place]. I did speak to the ER physician in [place] who did accept the patient in transfer. The patient left here in stable condition. Consults Time Called: 1899 Consulting Physician[facility] Returned Call: 1907 The patient was accepted for transfer. [facility] is sending a helicopter. Impression Primary Impression: Subdural hematoma Additional Impressions: SAH (subarachnoid hemorrhage) Hip fracture, left Fall Critical Care I have personally spent greater than 35 minutes of critical care time in the direct management of this patient. This includes bedside care, interpretation of diagnostic studies, and testing, discussion with consultants, patient, and family members, and other required patient management activities. This 35 minutes is in excess of all separately billable procedures. Scribe Attestation The scribe's documentation has been prepared under my direction and personally reviewed by me in its entirety. I confirm that the note above accurately reflects all work, treatment, procedures, and medical decision making performed by me. Departure Information Dispostion Transfer Acute Care Facility Referrals Pro,Kamlesh Armando M.D. (PCP) Patient Instructions [facility] Problem Qualifiers Additional Impressions: Hip fracture, left Encounter type: initial encounter Fracture type: closed Qualified Codes: S72.002A - Fracture of unspecified part of neck of left femur, initial encounter for closed fracture Fall Encounter type: initial encounter Qualified Codes: W19.XXXA - Unspecified fall, initial encounter
--- NOTE | 2016-11-19 18:32 | DIAGNOSTIC IMAGING REPORT ---
CT HEAD WITHOUT CONTRAST (CT) CLINICAL HISTORY: Confusion status post head trauma. COMPARISON STUDY: 08/31/2016 TECHNIQUE: Axial CT of the brain is performed from the vertex to the skull base. IV contrast was not administered for this examination. CT DOSE: 1026.13 mGy.cm FINDINGS: There is a small left convexity subdural hematoma measuring 4 mm in maximal thickness. There is trace hemorrhage within the left vertex, likely subarachnoid. There is no CT evidence of acute cortical infarction. There is no midline shift. There are patchy white matter hypodensities likely on a small vessel basis. There is no evidence of pathologic ventricular dilatation. There is no evidence of acute sinusitis. No calvarial fractures are visualized. IMPRESSION: 1. Interval development of a small left convexity subdural hematoma measuring 4 mm in maximal thickness 2. Trace hemorrhage within the left vertex, likely subarachnoid. 3. No calvarial fractures identified Electronically signed by: Clay Rivas M.D. 11/19/2016 6:31 PM Dictated Date/Time: 11/19/2016 6:28 PM
--- NOTE | 2016-11-19 18:36 | DIAGNOSTIC IMAGING REPORT ---
CT OF THE CERVICAL SPINE CLINICAL HISTORY: Trauma. Neck pain. Intracranial hemorrhage. COMPARISON STUDY: No previous studies for comparison. CT DOSE: TECHNIQUE: CT scan of the cervical spine was performed from the skull base to the thoracic inlet. Images are reviewed in the axial, sagittal, and coronal planes. IV contrast was not administered for this examination. FINDINGS: The visualized portions of the lung apices reveal no evidence of pneumothorax. The prevertebral soft tissues are normal. No fractures or traumatic subluxations are visualized. There are multilevel degenerative changes. 2.4 mm of retrolisthesis of C5 on C6 is likely arthritic. IMPRESSION: 1. No evidence of acute fracture or traumatic subluxation 2. Multilevel degenerative change. 2.4 mm of retrolisthesis of C5 on C6 is likely arthritic Electronically signed by: Clay Rivas M.D. 11/19/2016 6:35 PM Dictated Date/Time: 11/19/2016 6:31 PM
[2016-11-19 18:38] VITALS: O2SAT 92
[2016-11-19 19:07] LABS: URINE APPEARANCE CLEAR (CLEAR); URINE BILIRUBIN NEG (NEG); URINE COLOR YELLOW; URINE EPITHELIAL CELL AUTO >30 /lpf (0-5); URINE NITRITE POS (NEG); URINE SPECIFIC GRAVITY 1.015 (1.000-1.030); UROBILINOGEN NEG (NEG); ZZURINE CULT IF INDIC CATH YES
[2016-11-19 19:08] LABS: MANUAL MICROSCOPIC REQUIRED? NO; REVIEW REQ? YES
[2016-11-19 19:13] LABS: HEMATOCRIT 36.8 % (37-47); MEAN CELL VOLUME 83.3 fL (80-100); MEAN CORPUSCULAR HEMOGLOBIN 28.1 pg (25-34); MEAN CORPUSCULAR HGB CONC 33.7 g/dl (32-36); MEAN PLATELET VOLUME 10.7 fL (7.4-10.4); PLATELET COUNT 233 K/uL (130-400); RED BLOOD COUNT 4.42 M/uL (4.2-5.4); WHITE BLOOD COUNT 16.76 K/uL (4.8-10.8)
[2016-11-19 19:23] LABS: INR 1.1 (0.9-1.1); PROTHROMBIN TIME (PATIENT) 11.6 SECONDS (9.0-12.0)
[2016-11-19 19:33] LABS: BASO % 0.1 %; BASO ABS # 0.02 K/uL (0-0.2); COMPLETE YES; IG% 0.7 %; LYMPH % 5.3 %; LYMPH ABS # 0.88 K/uL (1.2-3.4); MONO % 7.3 %; NEUT % 86.6 %
--- NOTE | 2016-11-19 19:36 | DIAGNOSTIC IMAGING REPORT ---
CHEST ONE VIEW PORTABLE CLINICAL HISTORY: Altered mental status and weakness COMPARISON STUDY: 11/14/2016 FINDINGS: The cardiac and mediastinal contours remain stable. There are postsurgical changes of a midline sternotomy. There is mild interstitial thickening but no evidence of overt failure. There is no lobar consolidation. There are no pleural effusions.[ IMPRESSION: No active disease in the chest. Electronically signed by: Clay Rivas M.D. 11/19/2016 7:35 PM Dictated Date/Time: 11/19/2016 7:34 PM
--- NOTE | 2016-11-19 19:37 | DIAGNOSTIC IMAGING REPORT ---
AP PELVIS AND LEFT HIP 3 VIEWS CLINICAL HISTORY: Left hip pain status post trauma COMPARISON STUDY: No previous studies for comparison. FINDINGS: There is a subcapital left hip fracture. There is no SI joint diastases. There is no symphysis diastases. Postsurgical changes are present within the lower lumbar spine. IMPRESSION: Subcapital left hip fracture. Electronically signed by: Clay Rivas M.D. 11/19/2016 7:36 PM Dictated Date/Time: 11/19/2016 7:35 PM
[2016-11-19 19:46] LABS: BUN/CREATININE RATIO 24.3 (10-20); CALCIUM 9.4 mg/dl (8.5-10.1); CREATININE 1.1 mg/dl (0.60-1.20); POTASSIUM 3.6 mmol/L (3.5-5.1)
[2016-11-19 19:54] VITALS: BP 185/97; PULSE 98; TEMP 36.8; O2SAT 92
[2016-11-19 20:00] LABS: ALB/GLOB RATIO 0.8 (0.9-2); THYROID STIMULATING HORMONE 0.11 uIu/ml (0.300-4.500)
--- NOTE | 2016-11-21 11:36 | Pharmacy Progress Note ---
ED Pharmacist Culture FollowUp Date of Service: Nov 21, 2016. Patient with Pseudomonas isolated from urine culture. Patient [facility] [place] . I spoke w RN currently taking care of patient (Mary) who requested results be faxed to . I faxed the culture, sensitivities, and urinalysis and received the fax confirmation. Management of result to be completed by [facility]. No further intervention required by [facility] ED staff.
[2017-03-22] MEDS ORDERED: LEVO137T3 PO (15:39)
[2017-03-22] MEDS ORDERED: CRD200 PO (15:39)
[2017-03-22] MEDS ORDERED: CEPH500C PO (15:39)
== END 2016-11-19 19:50 | disposition short-term general hospital (02) ==
LOC: EDBD 17:33 → C.EDA 17:34
DX: S06.5X0A Traumatic subdural hemorrhage without loss of consciousness, initial encounter (principal); S06.6X0A Traumatic subarachnoid hemorrhage without loss of consciousness, initial encounter; S00.81XA Abrasion of other part of head, initial encounter; S72.002A Fracture of unspecified part of neck of left femur, initial encounter for closed fracture; S51.012A Laceration without foreign body of left elbow, initial encounter; W19.XXXA Unspecified fall, initial encounter; F03.90 Unspecified dementia, unspecified severity, without behavioral disturbance, psychotic disturbance, mood disturbance, and anxiety; K21.9 Gastro-esophageal reflux disease without esophagitis; D64.9 Anemia, unspecified; I25.10 Atherosclerotic heart disease of native coronary artery without angina pectoris; I10 Essential (primary) hypertension; E03.9 Hypothyroidism, unspecified; I25.2 Old myocardial infarction; Z95.1 Presence of aortocoronary bypass graft; Z80.9 Family history of malignant neoplasm, unspecified; Z79.899 Other long term (current) drug therapy

== ENCOUNTER → 2017-01-06 | Outpatient (CLI) | payer OTHER ==
[~2017-01-06] MED LIST changes: -DSWCR TOP; +FERR1TAB13 PO; +MIDODRINE PO; +MOML PO
[2017-01-06 11:12] LABS: BLOOD UREA NITROGEN 17 mg/dl (7-18); BUN/CREATININE RATIO 19.7 (10-20); CALCIUM 9.8 mg/dl (8.5-10.1); CARBON DIOXIDE 30 mmol/L (21-32); CHLORIDE 101 mmol/L (98-107); CREATININE 0.85 mg/dl (0.60-1.20); GLUCOSE 96 mg/dl (70-99); POTASSIUM 3.8 mmol/L (3.5-5.1); SODIUM 136 mmol/L (136-145)
== END ==
LOC: C.LABFOXAE 08:53 → EDSTATUS 01-15 08:52
PROVIDERS: ATTEND Internal Medicine
DX: E87.1 Hypo-osmolality and hyponatremia (principal); E03.9 Hypothyroidism, unspecified; I10 Essential (primary) hypertension

== ENCOUNTER → 2017-01-10 | Outpatient (CLI) | payer OTHER ==
[2017-01-10 10:29] LABS: URINE APPEARANCE CLOUDY (CLEAR); URINE BILIRUBIN NEG (NEG); URINE COLOR YELLOW; URINE EPITHELIAL CELL AUTO 0-5 /lpf (0-5); URINE NITRITE POS (NEG); URINE SPECIFIC GRAVITY 1.013 (1.000-1.030); UROBILINOGEN NEG (NEG); ZZUR CULT IF INDIC CLEAN CATCH YES
[2017-01-10 10:33] LABS: MANUAL MICROSCOPIC REQUIRED? NO; REVIEW REQ? NO
== END | disposition home or self-care (01) ==
LOC: EDSTATUS 08:50 → C.LABFOXAE 12:42 → EDSTATUS 12:42
PROVIDERS: ATTEND Internal Medicine
DX: R50.9 Fever, unspecified (principal)

== ENCOUNTER → 2017-01-28 | Outpatient (CLI) | payer OTHER ==
[2017-01-28 10:16] LABS: HEMATOCRIT 38.2 % (37-47); MEAN CELL VOLUME 85.1 fL (80-100); MEAN CORPUSCULAR HEMOGLOBIN 28.3 pg (25-34); MEAN CORPUSCULAR HGB CONC 33.2 g/dl (32-36); MEAN PLATELET VOLUME 11.2 fL (7.4-10.4); PLATELET COUNT 258 K/uL (130-400); RED BLOOD COUNT 4.49 M/uL (4.2-5.4); WHITE BLOOD COUNT 6.41 K/uL (4.8-10.8)
[2017-01-28 10:28] LABS: BLOOD UREA NITROGEN 14 mg/dl (7-18); BUN/CREATININE RATIO 15.2 (10-20); CALCIUM 10.3 mg/dl (8.5-10.1); CARBON DIOXIDE 26 mmol/L (21-32); CHLORIDE 100 mmol/L (98-107); CREATININE 0.89 mg/dl (0.60-1.20); GLUCOSE 131 mg/dl (70-99); POTASSIUM 3.4 mmol/L (3.5-5.1); SODIUM 135 mmol/L (136-145)
[2017-01-28 10:30] LABS: TOTAL IRON BINDING CAPACITY 351 mcg/dl (250-450)
== END | disposition home or self-care (01) ==
LOC: C.LABFOXAE 09:45
PROVIDERS: ATTEND Internal Medicine Gastroenterology
DX: D64.9 Anemia, unspecified (principal)

== ENCOUNTER → 2017-02-24 | Outpatient (CLI) | payer OTHER ==
[2017-02-24 09:05] LABS: BLOOD UREA NITROGEN 15 mg/dl (7-18); BUN/CREATININE RATIO 15.7 (10-20); CALCIUM 9.8 mg/dl (8.5-10.1); CARBON DIOXIDE 26 mmol/L (21-32); CHLORIDE 101 mmol/L (98-107); CREATININE 0.93 mg/dl (0.60-1.20); GLUCOSE 90 mg/dl (70-99); POTASSIUM 3.9 mmol/L (3.5-5.1); SODIUM 136 mmol/L (136-145)
== END | disposition home or self-care (01) ==
LOC: C.LABFOXAE 08:19
PROVIDERS: ATTEND Internal Medicine
DX: E87.1 Hypo-osmolality and hyponatremia (principal)

== ENCOUNTER → 2017-02-25 | Outpatient (CLI) | payer OTHER | END | disposition home or self-care (01) | LOC: C.LABFOXAE 08:26 | PROVIDERS: ATTEND Internal Medicine | DX: E03.9 Hypothyroidism, unspecified (principal) ==

== ENCOUNTER 2017-03-21 09:25 | Observation (INO) | payer OTHER ==
[~2017-03-21] VITALS: Ht 160 cm; Wt 58.3 kg
[~2017-03-21 09:25] MED LIST changes: -PANT40TA PO
[2017-03-21] MEDS ORDERED: SODIUM CHLORIDE 0.9% 500ML 500 ML IV STA (09:40)
[2017-03-21] MEDS ORDERED: DILTIAZEM HCL 5 MG/ML 5 ML VIAL IV STA (09:40)
[2017-03-21] MEDS ORDERED: SODIUM CHLORIDE 0.9% 1000ML 1,000 ML IV STA (09:40)
[2017-03-21] MEDS ORDERED: DILTIAZEM BOLUS / DRIP IV STA ×2 (09:40→11:27)
[2017-03-21] MEDS ORDERED: DILTIAZEM HCL INJ 125 MG in DEXTROSE 5% 100ML IV PRN (09:45)
--- NOTE | 2017-03-21 09:59 | DIAGNOSTIC IMAGING REPORT ---
SINGLE VIEW CHEST CLINICAL HISTORY: Generalized weakness. FINDINGS: An AP, portable, upright chest radiograph is compared to study dated 11/19/2016. Correlation is made with chest CT dated 08/31/2016. The examination is degraded by portable technique and patient rotation. The patient is status post midline sternotomy. The heart is top normal for projection and there is atherosclerotic calcification of the thoracic aorta. The pulmonary vasculature is noncongested. Chronic interstitial thickening is similar to previous. No airspace consolidation or large pleural effusion is identified. There is apical scarring. No pneumothorax is seen. The skeletal structures are osteopenic. The bony thorax is grossly intact. IMPRESSION: No acute cardiopulmonary abnormality. Electronically signed by: Que Warner M.D. 03/21/2017 9:57 AM Dictated Date/Time: 03/21/2017 9:56 AM
[2017-03-21 10:12] LABS: BASO % 0.4 %; BASO ABS # 0.06 K/uL (0-0.2); COMPLETE YES; EOS % 0.8 %; HEMATOCRIT 44.2 % (37-47); IG% 0.5 %; LYMPH % 12.8 %; LYMPH ABS # 1.98 K/uL (1.2-3.4); MEAN CELL VOLUME 84.4 fL (80-100); MEAN CORPUSCULAR HEMOGLOBIN 27.9 pg (25-34); MEAN PLATELET VOLUME 10.6 fL (7.4-10.4); MONO % 10.6 %; NEUT % 74.9 %; PLATELET COUNT 284 K/uL (130-400); RED BLOOD COUNT 5.24 M/uL (4.2-5.4); WHITE BLOOD COUNT 15.48 K/uL (4.8-10.8)
[2017-03-21 10:29] LABS: PROTHROMBIN TIME (PATIENT) 10.8 SECONDS (9.0-12.0)
[2017-03-21 10:32] LABS: BUN/CREATININE RATIO 16.7 (10-20); CALCIUM 9.8 mg/dl (8.5-10.1); CREATININE 0.9 mg/dl (0.60-1.20); MAGNESIUM 2.1 mg/dl (1.8-2.4); POTASSIUM 4.3 mmol/L (3.5-5.1)
--- NOTE | 2017-03-21 10:41 | EMERGENCY ROOM VISIT NOTE ---
History Report prepared by [place]: Tesfaye Durham Under the Supervision of: Dr. Levar Reddy M.D. First contact with patient: 09:34 Chief Complaint: CARDIAC ASSESSMENT Stated Complaint: AFIB Nursing Triage Summary: patient states she woke up this morning and had a headache and dizziness. patient denies any chest pain no shortness of breath. no hx of afib per the patient. History of Present Illness The patient is an 86 year old female who presents to the Emergency Room via EMS from [facility] with complaints of persistent dizziness that started upon waking this morning. She says that she woke up with a headache as well. Per the nursing staff, the patient did not receive anything by EMS. The patient states that she currently feels lousy, and still has the dizziness. The patient notes that she had an irregular heartbeat "one other time". She says that she felt well yesterday, and has not had any recent illnesses. The patient adds that she had 2 stents placed and a heart bypass many years ago. Pt denies LOC, fevers, chills, diaphoresis, visual changes, neck pain, chest pain, breathing difficulties, nausea, vomiting, abdominal pain, back pain, melena, hematochezia , urinary symptoms, numbness, weakness, lymphadenopathy, rash, leg pain, or other complaints. Source of History: patient, nursing staff Onset: Upon waking this morning Position: other (global - dizziness) Symptom Intensity: still very dizzy Timing: other (persistent) Associated Symptoms: + headache Note: Associated symptoms: Feels "lousy". Review of Systems See HPI for pertinent positives and negatives. A total of ten systems were reviewed and were otherwise negative. Past Medical & Surgical Medical Problems: (1) Acid reflux (2) Anemia (3) Coronary artery disease (4) Dizziness (5) Dizzy (6) Facial trauma (7) Fall (8) Gastrointestinal bleed (9) Headache (10) HTN (hypertension) (11) Hypertension (12) Hypertensive urgency (13) Hypothyroidism (14) Myocardial infarction (15) Vertigo (16) Weakness Surgical Problems: (1) Hx of CABG Family History Cancer Heart disease Social History Smoking Status: Never Smoker Alcohol Use: none Drug Use: none Marital Status: Housing Status: lives alone Occupation Status: retired Current/Historical Medications Scheduled Docusate Sodium (Stool Softener), 100 MG PO QAM Ferrous Sulfate (Kp Ferrous Sulfate), 325 MG PO QAM Levothyroxine Sodium (Synthroid), 150 MCG PO QAM Metronidazole (Topical) (Metronidazole), 1 APPLN TOP DAILY Pantoprazole (Protonix), 40 MG PO BID Sennosides (Senexon), 8.6 MG PO QAM Sodium Chloride (Sodium Chloride), 2 GM PO TID Scheduled PRN Acetaminophen (Tylenol), 650 MG PO Q6 PRN for Fever Acetaminophen (Tylenol), 650 MG PO Q6 PRN for MILD PAIN Benzocaine-Menthol (Mouth-Thro (Cepacol Sore Throat), 1 TODD PO EVERY 2 HOURS PRN for DRY THROAT/SORE THROAT Clonidine Hcl (Catapres), 0.1 MG PO DAILY PRN for SBP > 180 STANDING Magnesium Hydroxide (Milk of Magnesia 400 mg/5Ml), 30 ML PO EVERY 48 HOURS PRN for Constipation Polyvinyl Alcohol (Liquitears), 1 DROP OPB QID PRN for DRYNESS/IRRITATION Sodium Phosphate/Biphosphate (Fleet Enema), 1 EA UT EVERY 72 HOURS PRN for Constipation Allergies Coded Allergies: Morphine (Verified Allergy, Mild, Itching, 09/19/16) and erythema at site of injection Penicillins (Verified Allergy, Unknown, 09/19/16) Atorvastatin (Verified Adverse Reaction, Unknown, 09/19/16) Ezetimibe (Verified Adverse Reaction, Unknown, 09/19/16) Physical Exam Vital Signs Date Time Temp Pulse Resp B/P (MAP) Pulse Ox O2 Delivery O2 Flow Rate FiO2 03/21/17 11:45 153 32 92 03/21/17 11:41 87/64 03/21/17 11:35 131 21 99 03/21/17 11:31 101/69 03/21/17 11:25 135 54 99 03/21/17 11:21 120/83 03/21/17 11:15 154 29 98 03/21/17 11:11 109/84 03/21/17 11:05 133 15 99 03/21/17 11:01 108/73 03/21/17 10:55 116 23 99 03/21/17 10:51 116/84 03/21/17 10:45 146 23 99 03/21/17 10:43 130 18 97/80 99 Nasal Cannula 2.0 03/21/17 10:41 97/80 03/21/17 10:35 161 33 98 03/21/17 10:31 118/72 03/21/17 10:30 119 18 118/72 100 Nasal Cannula 2.0 03/21/17 10:25 133 39 98 03/21/17 10:21 122/71 03/21/17 10:20 115 18 122/71 97 Nasal Cannula 03/21/17 10:18 98/73 03/21/17 10:17 138 16 98/73 99 Nasal Cannula 03/21/17 10:15 142 47 100 03/21/17 10:11 91/64 03/21/17 10:10 125 18 91/64 99 Nasal Cannula 2.0 03/21/17 10:05 136 20 102/81 98 Nasal Cannula 2.0 03/21/17 10:05 118 43 102/81 98 03/21/17 09:59 107/65 03/21/17 09:55 147 43 103/87 99 03/21/17 09:54 153 16 103/87 100 Nasal Cannula 2.0 03/21/17 09:46 101/74 03/21/17 09:45 124 27 93 03/21/17 09:35 157 23 94 03/21/17 09:32 145 03/21/17 09:30 95 Room Air 03/21/17 09:30 36.5 157 18 110/69 95 Room Air 03/21/17 09:30 97 Nasal Cannula 2.0 03/21/17 09:30 95 Room Air 03/21/17 09:29 110/69 Physical Exam GENERAL: Awake, alert, tired-appearing, in no distress HENT: Normocephalic, atraumatic. Oropharynx unremarkable. EYES: Normal conjunctiva. Sclera non-icteric. NECK: Supple. No nuchal rigidity. FROM. No JVD. RESPIRATORY: Clear to auscultation. CARDIAC: Irregularly irregular tachycardic rate. Extremities warm and well perfused. Pulses equal. ABDOMEN: Soft, non-distended. No tenderness to palpation. No rebound or guarding. No masses. RECTAL: Deferred. MUSCULOSKELETAL: Chest examination reveals no tenderness. The back is symmetrical on inspection without obvious abnormality. There is no CVA tenderness to palpation. No joint edema. LOWER EXTREMITIES: Calves are equal size bilaterally and non-tender. No edema. No discoloration. NEURO: Normal sensorium. No sensory or motor deficits noted. SKIN: No rash or jaundice noted. Medical Decision & Procedures ER Provider Diagnostic Interpretation: X-ray: Per my interpretation, radiologist review. SINGLE VIEW CHEST CLINICAL HISTORY: Generalized weakness. FINDINGS: An AP, portable, upright chest radiograph is compared to study dated 11/19/2016. Correlation is made with chest CT dated 08/31/2016. The examination is degraded by portable technique and patient rotation. The patient is status post midline sternotomy. The heart is top normal for projection and there is atherosclerotic calcification of the thoracic aorta. The pulmonary vasculature is noncongested. Chronic interstitial thickening is similar to previous. No airspace consolidation or large pleural effusion is identified. There is apical scarring. No pneumothorax is seen. The skeletal structures are osteopenic. The bony thorax is grossly intact. IMPRESSION: No acute cardiopulmonary abnormality. Electronically signed by: Que Warner M.D. 03/21/2017 9:57 AM Dictated Date/Time: 03/21/2017 9:56 AM Laboratory Results 03/21/17 09:55 Red Blood Count 5.24, Mean Corpuscular Volume 84.4, Mean Corpuscular Hemoglobin 27.9, Mean Corpuscular Hemoglobin Concent 33.0, Mean Platelet Volume 10.6, Neutrophils (%) (Auto) 74.9, Lymphocytes (%) (Auto) 12.8, Monocytes (%) (Auto) 10.6, Eosinophils (%) (Auto) 0.8, Basophils (%) (Auto) 0.4, Neutrophils # (Auto ) 11.60, Lymphocytes # (Auto) 1.98, Monocytes # (Auto) 1.64, Eosinophils # (Auto ) 0.13, Basophils # (Auto) 0.06 03/21/17 09:55 Test 03/21/17 00:00 03/21/17 09:55 03/21/17 09:58 Urine Color YELLOW Urine Appearance CLOUDY (CLEAR) Urine pH 7.0 (4.5-7.5) Urine Specific [place]rose 1.015 (1.000-1.030) Urine Protein 1+ (NEG) Urine Glucose (UA) NEG (NEG) Urine Ketones NEG (NEG) Urine Occult Blood NEG (NEG) Urine Nitrite NEG (NEG) Urine Bilirubin NEG (NEG) Urine Urobilinogen NEG (NEG) Urine Leukocyte Esterase SMALL (NEG) Urine WBC (Auto) >30 /hpf (0-5) Urine RBC (Auto) 0-4 /hpf (0-4) Urine Hyaline Casts (Auto) 10-30 /lpf (0-5) Urine Epithelial Cells (Auto) 0-5 /lpf (0-5) Urine Bacteria (Auto) 4+ (NEG) White Blood Count 15.48 K/uL (4.8-10.8) Red Blood Count 5.24 M/uL (4.2-5.4) Hemoglobin 14.6 g/dL (12.0-16.0) Hematocrit 44.2 % (37-47) Mean Corpuscular Volume 84.4 fL (80-100) Mean Corpuscular Hemoglobin 27.9 pg (25-34) Mean Corpuscular Hemoglobin Concent 33.0 g/dl (32-36) Platelet Count 284 K/uL (130-400) Mean Platelet Volume 10.6 fL (7.4-10.4) Neutrophils (%) (Auto) 74.9 % Lymphocytes (%) (Auto) 12.8 % Monocytes (%) (Auto) 10.6 % Eosinophils (%) (Auto) 0.8 % Basophils (%) (Auto) 0.4 % Neutrophils # (Auto) 11.60 K/uL (1.4-6.5) Lymphocytes # (Auto) 1.98 K/uL (1.2-3.4) Monocytes # (Auto) 1.64 K/uL (0.11-0.59) Eosinophils # (Auto) 0.13 K/uL (0-0.5) Basophils # (Auto) 0.06 K/uL (0-0.2) RDW Standard Deviation 49.5 fL (36.4-46.3) RDW Coefficient of Variation 16.0 % (11.5-14.5) Immature Granulocyte % (Auto) 0.5 % Immature Granulocyte # (Auto) 0.07 K/uL (0.00-0.02) Prothrombin Time 10.8 SECONDS (9.0-12.0) Prothromb Time International Ratio 1.0 (0.9-1.1) Activated Partial Thromboplast Time 26.5 SECONDS (21.0-31.0) Partial Thromboplastin Ratio 1.0 Anion Gap 5.0 mmol/L (3-11) Est Creatinine Clear Calc Drug Dose 37.8 ml/min Estimated GFR () 67.6 Estimated GFR (Non- 58.3 BUN/Creatinine Ratio 16.7 (10-20) Calcium Level 9.8 mg/dl (8.5-10.1) Magnesium Level 2.1 mg/dl (1.8-2.4) Total Bilirubin 0.6 mg/dl (0.2-1) Direct Bilirubin 0.2 mg/dl (0-0.2) Aspartate Amino Transf (AST/SGOT) 10 U/L (15-37) Alanine Aminotransferase (ALT/SGPT) 12 U/L (12-78) Alkaline Phosphatase 165 U/L (45-117) Total Creatine Kinase 14 U/L (26-192) Creatine Kinase MB 1.3 ng/ml (0.5-3.6) Creatine Kinase MB Ratio 9.3 (0-3.0) Total Protein 7.5 gm/dl (6.4-8.2) Albumin 3.1 gm/dl (3.4-5.0) Thyroid Stimulating Hormone (TSH) 0.136 uIu/ml (0.300-4.500) Thyroxine (T4) 11.1 mcg/dl (4.5-10.9) Free Triiodothyronine 3.24 pg/ml (2.30-4.20) Laboratory results reviewed by me Medications Administered Medications (Trade) Dose Ordered Sig/[place] Route Start Time Stop Time Status Last Admin Dose Admin Sodium Chloride 1,000 ml @ 125 mls/hr Q8H STAT IV 03/21/17 09:40 03/21/17 13:52 DC 03/21/17 09:40 125 MLS/HR Diltiazem HCl (Cardizem Inj) 10 mg NOW STAT IV 03/21/17 09:40 03/21/17 12:36 DC 03/21/17 09:51 10 MG Sodium Chloride 500 ml @ 999 mls/hr Q31M STAT IV 03/21/17 09:40 03/21/17 10:10 DC 03/21/17 09:40 999 MLS/HR Diltiazem HCl 125 mg/Dextrose 125 ml @ 0 mls/hr Q0M PRN IV 03/21/17 09:45 03/21/17 12:36 DC 03/21/17 10:02 5 MLS/HR ECG Indication: other (dizziness) Rate (beats per minute): 158 Rhythm: atrial fibrillation (with RVR) Findings: ST depression (Anterolateral) Comparison ECG Date: compared to November 19, 2016, atrial fibrillation has replaced sinus tachycardia ED Course 0938: The patient was evaluated in room A3. A complete history and physical exam was performed. 0940: Ordered NSS 500 ml @ 999 mls/hr IV, Cardizem Inj 10 mg IV, Cardizem Bolus/ Drip 1 ea IV, NSS 1000 ml @ 125 mls/hr IV. 0958: I reevaluated the patent and her family is in the room and they are all updated. 1021: I reevaluated the patient and she is stable, but still mildly tachycardic. 1125: I reevaluated the patient and she is doing better. I updated the family. The patient verbally expressed understanding and agreement of the treatment plan. The patient will be evaluated for further treatment. 1212: I discussed the patient with Dr. Narayanan - [facility] [place] [facility] health promoter - he will evaluate the patient for further treatment. Medical Decision Triage Nursing notes reviewed. The patient's presentation and history were concerning for tachycardia. Etiologies such as ectopy, cardiac dysrhythmia, electrolyte abnormality, thyroid dysfunction, pulmonary embolism, infection, gastrointestinal, as well as others were entertained. The patient was evaluated. Triage found to be in rapid atrial fibrillation. No medication was given prehospital. ECG on arrival revealed A. fib with RVR. There was some ST depression noted. She was not having any chest pain. She was given a normal saline bolus at 500 mL and Cardizem 10 mg. She started on a Cardizem drip. The patient was reassessed. She was found to have a mild leukocytosis of 15,000. Her chemistry panel and cardiac markers were unremarkable. Urinalysis ordered. Chest x-ray was negative. The patient and family were updated. The patient had her Cardizem drip titrated treated. The patient will need to be admitted to the hospital for treatment of her rapid atrial fibrillation. Consultation was made with internal medicine. Patient was evaluated for further treatment. After admission the patient's urinalysis came back and she was some concerns for infection. I did discuss this with internal medicine, Dr. Narayanan, and hospitalist will administer antibiotics as the patient has already been admitted to the floor. Medication Reconcilliation Current Medication List: was personally reviewed by me Blood Pressure Screening Patient's blood pressure: Normal blood pressure Consults Time Called: 1200 Consulting Physician: Dr. Lady PASTOR peer health promoter Returned Call: 1212 I discussed the patient with Dr. Lady PASTOR peer health promoter - he will evaluate the patient for further treatment. Impression Primary Impression: Atrial fibrillation with rapid ventricular response Additional Impression: UTI (urinary tract infection) Critical Care I have personally spent greater than 30 minutes of critical care time in the direct management of this patient. This includes bedside care, interpretation of diagnostic studies, and testing, discussion with consultants, patient, and family members, and other required patient management activities. This 30 minutes is in excess of all separately billable procedures. Scribe Attestation The scribe's documentation has been prepared under my direction and personally reviewed by me in its entirety. I confirm that the note above accurately reflects all work, treatment, procedures, and medical decision making performed by me. Departure Information Dispostion Being Evaluated By Hospitalist Referrals Hitesh Felix (PCP) Patient Instructions My [facility] Problem Qualifiers
[2017-03-21 10:43] LABS: CKMB/CK RATIO 9.3 (0-3.0); THYROID STIMULATING HORMONE 0.136 uIu/ml (0.300-4.500)
[2017-03-21] MEDS ORDERED: SODIENE PR (11:11)
[2017-03-21] MEDS ORDERED: METR0.7536 TOP (11:11)
[2017-03-21] MEDS ORDERED: ACET-1311 PO (11:11)
[2017-03-21] MEDS ORDERED: CLON0.1T12 PO (11:11)
[2017-03-21] MEDS ORDERED: MAGNSUS73 PO (11:11)
[2017-03-21] MEDS ORDERED: POLY99.02 OPB (11:11)
[2017-03-21] MEDS ORDERED: PANT40TA PO (11:11)
[2017-03-21] MEDS ORDERED: SENN8.6T9 PO (11:11)
[2017-03-21] MEDS ORDERED: SYN150 PO (11:11)
[2017-03-21] MEDS ORDERED: SODI1TAB PO (11:11)
[2017-03-21] MEDS ORDERED: BENZ10LO2 PO (11:11)
--- NOTE | 2017-03-21 11:39 | History and Physical ---
History & Physical Date & Time of Service: Mar 21, 2017 at 11:32 Chief Complaint: AFIB Primary Care Physician: Hitesh Felix History of Present Illness Source: patient 86 y/o F Hx CAD, HTN, HPL, chronic dizziness, hypothyroidism, PAF, GI bleed . Pt presents from a nursing facility with a chief complaint of dizziness - denies CP, SOB, N/V, dysuria or fevers - admits to generalized weakness. The pt herself had not intended to attend the hospital, however, she was examined by nursing staff and noted to be tachycardic. There were also reports of unilateral weakness, although we could not confirm this, and she is symptom free at the time of admission. On arrival to the ER AF/RVR was noted on monitor with an initial rate of 150+. Past Medical/Surgical History 1) CAD s/p 2 vessel CABG in 1999 followed by 2 stents to the right coronary artery in 2010 2) Carotid stenosis 3) Hypothyroidism 4) Hypertension 5) Paroxysmal A. fib 6) History of CVA without residual deficits 7) GERD w/ esophagitis 8) Chronic constipation 9) Rosacea 10) Diverticulitis 11) Hip fracture and subdural hematoma following a fall 11/15 - treated in [place] 12) Upper GI bleed 09/15 - esophagitis noted on EGD - ASA ad Plavix were discontinued since that time. Surgical: CABG 1999 Family History Cancer Heart disease Social History Smoking Status: Never Smoker Drug Use: none Marital Status: Housing status: lives alone Occupational Status: retired Immunizations History of Influenza Vaccine: Yes History of Tetanus Vaccine?: Yes History of Pneumococcal: Yes History of Hepatitis B Vaccine: No Multi-Drug Resistant Organisms History of MDRO: No Allergies Coded Allergies: Morphine (Verified Allergy, Mild, Itching, 09/19/16) and erythema at site of injection Penicillins (Verified Allergy, Unknown, 09/19/16) Atorvastatin (Verified Adverse Reaction, Unknown, 09/19/16) Ezetimibe (Verified Adverse Reaction, Unknown, 09/19/16) Home Medications Scheduled Docusate Sodium (Stool Softener), 100 MG PO QAM Ferrous Sulfate (Kp Ferrous Sulfate), 325 MG PO QAM Levothyroxine Sodium (Synthroid), 150 MCG PO QAM Metronidazole (Topical) (Metronidazole), 1 APPLN TOP DAILY Pantoprazole (Protonix), 40 MG PO BID Sennosides (Senexon), 8.6 MG PO QAM Sodium Chloride (Sodium Chloride), 2 GM PO TID Scheduled PRN Acetaminophen (Tylenol), 650 MG PO Q6 PRN for Fever Acetaminophen (Tylenol), 650 MG PO Q6 PRN for MILD PAIN Benzocaine-Menthol (Mouth-Thro (Cepacol Sore Throat), 1 TODD PO EVERY 2 HOURS PRN for DRY THROAT/SORE THROAT Clonidine Hcl (Catapres), 0.1 MG PO DAILY PRN for SBP > 180 STANDING Magnesium Hydroxide (Milk of Magnesia 400 mg/5Ml), 30 ML PO EVERY 48 HOURS PRN for Constipation Polyvinyl Alcohol (Liquitears), 1 DROP OPB QID PRN for DRYNESS/IRRITATION Sodium Phosphate/Biphosphate (Fleet Enema), 1 EA IN EVERY 72 HOURS PRN for Constipation Review of Systems Constitutional: + weakness, No fever, No chills, No sweats Eyes: No worsening of vision ENT: No hearing loss, No unusual epistaxis, No nasal symptoms Respiratory: No cough, No sputum, No wheezing Cardiovascular: No chest pain, No orthopnea, No PND Abdomen: No pain, No nausea, No vomiting Musculoskeletal: No joint pain Genitourinary - Female: No dysuria, No urinary frequency, No urinary urgency Neurologic: + weakness, + problem reported (dizziness), No memory loss, No paralysis Psychiatric: No depression symptoms Hematologic / Lymphatic: No abnormal bleeding/bruising Integumentary: No rash Allergic / Immunologic: No environmental allergies Physical Exam Vital Signs Date Time Temp Pulse Resp B/P (MAP) Pulse Ox O2 Delivery O2 Flow Rate FiO2 03/21/17 10:43 130 18 97/80 99 Nasal Cannula 2.0 03/21/17 10:30 119 18 118/72 100 Nasal Cannula 2.0 03/21/17 10:20 115 18 122/71 97 Nasal Cannula 03/21/17 10:17 138 16 98/73 99 Nasal Cannula 03/21/17 10:10 125 18 91/64 99 Nasal Cannula 2.0 03/21/17 10:05 136 20 102/81 98 Nasal Cannula 2.0 03/21/17 09:54 153 16 103/87 100 Nasal Cannula 2.0 03/21/17 09:32 145 03/21/17 09:30 95 Room Air 10/21/17 09:30 36.5 157 18 110/69 95 Room Air 03/21/17 09:30 97 Nasal Cannula 2.0 03/21/17 09:30 95 Room Air General Appearance: + pertinent finding (Thin elderly female in no distress) Head: normocephalic Eyes: normal inspection ENT: normal ENT inspection, pharynx normal Neck: supple, no JVD Respiratory/Chest: chest non-tender, lungs clear, normal breath sounds Cardiovascular: no edema, + tachycardia, + irregularly irregular Abdomen/GI: normal bowel sounds, non tender, soft Back: normal inspection, no CVA tenderness, no muscle spasm, normal range of motion Extremities/Musculoskelatal: normal inspection, no calf tenderness, normal capillary refill, no pedal edema, normal range of motion Neurologic/Psych: stenographer secretary II-XII nml as tested, no motor/sensory deficits, alert, normal mood/affect Skin: normal color, warm/dry, no rash Diagnostics Laboratory Results Results Past 24 Hours Test 03/21/17 09:55 Range/Units White Blood Count 15.48 4.8-10.8 K/uL Red Blood Count 5.24 4.2-5.4 M/uL Hemoglobin 14.6 12.0-16.0 g/dL Hematocrit 44.2 37-47 % Mean Corpuscular Volume 84.4 80-100 fL Mean Corpuscular Hemoglobin 27.9 25-34 pg Mean Corpuscular Hemoglobin Concent 33.0 32-36 g/dl Platelet Count 284 130-400 K/uL Mean Platelet Volume 10.6 7.4-10.4 fL Neutrophils (%) (Auto) 74.9 % Lymphocytes (%) (Auto) 12.8 % Monocytes (%) (Auto) 10.6 % Eosinophils (%) (Auto) 0.8 % Basophils (%) (Auto) 0.4 % Neutrophils # (Auto) 11.60 1.4-6.5 K/uL Lymphocytes # (Auto) 1.98 1.2-3.4 K/uL Monocytes # (Auto) 1.64 0.11-0.59 K/uL Eosinophils # (Auto) 0.13 0-0.5 K/uL Basophils # (Auto) 0.06 0-0.2 K/uL RDW Standard Deviation 49.5 36.4-46.3 fL RDW Coefficient of Variation 16.0 11.5-14.5 % Immature Granulocyte % (Auto) 0.5 % Immature Granulocyte # (Auto) 0.07 0.00-0.02 K/uL Prothrombin Time 10.8 9.0-12.0 SECONDS Prothromb Time International Ratio 1.0 0.9-1.1 Activated Partial Thromboplast Time 26.5 21.0-31.0 SECONDS Partial Thromboplastin Ratio 1.0 Sodium Level 136 136-145 mmol/L Potassium Level 4.3 3.5-5.1 mmol/L Chloride Level 100 98-107 mmol/L Carbon Dioxide Level 31 21-32 mmol/L Anion Gap 5.0 3-11 mmol/L Blood Urea Nitrogen 15 7-18 mg/dl Creatinine 0.90 0.60-1.20 mg/dl Est Creatinine Clear Calc Drug Dose 37.8 ml/min Estimated GFR () 67.6 Estimated GFR (Non- 58.3 BUN/Creatinine Ratio 16.7 10-20 Random Glucose 113 70-99 mg/dl Calcium Level 9.8 8.5-10.1 mg/dl Magnesium Level 2.1 1.8-2.4 mg/dl Total Bilirubin 0.6 0.2-1 mg/dl Direct Bilirubin 0.2 0-0.2 mg/dl Aspartate Amino Transf (AST/SGOT) 10 15-37 U/L Alanine Aminotransferase (ALT/SGPT) 12 12-78 U/L Alkaline Phosphatase 165 45-117 U/L Total Creatine Kinase 14 26-192 U/L Creatine Kinase MB 1.3 0.5-3.6 ng/ml Creatine Kinase MB Ratio 9.3 0-3.0 Troponin I 0.045 0-0.045 ng/ml Total Protein 7.5 6.4-8.2 gm/dl Albumin 3.1 3.4-5.0 gm/dl Thyroid Stimulating Hormone (TSH) 0.136 0.300-4.500 uIu/ml EKG AF/RVR Impression Assessment and Plan 86 y/o F Hx CAD, HTN, HPL, chronic dizziness, hypothyroidism, PAF, GI bleed . Pt presents from a nursing facility with a chief complaint of dizziness - denies CP, SOB, N/V, dysuria or fevers - admits to generalized weakness. There were also reports of unilateral weakness, although we could not confirm this, and she is symptom free at the time of admission. On arrival to the ER AF/RVR was noted on monitor with an initial rate of 150+. 1) Rapid AF - placed on a Diltiazem drip in ER which is effectively lowering her HR. Her BP has occasionally been low - she is receiving IVF and we may resort tot addition of Dig if she cannot tolerate an effective dose of Diltiazem. Pt will be placed on ASA due to reports of weakness, ongoing AF and inadvisability of full-dose anticoagulation with pt's bleeding risks. 2) CAD - no related symptoms at present - assigned to telemetry - ASA provided - serial enzymes ordered due to marginal trop - pt is Statin-intolerant 3) Hypothyroid - TSH oversuppressed - hold Synthroid - check T4,3 4) Hx GI bleed - had D/Cd Plavix and ASA 09/15 - will provide low dose ASA with caution as risk of CVA may be high - cont PPi Full code - SCDs Total time for this admit including review labs, meds, records, EKG - discussion with pt/family, ER attending - 37 min Level of Care Telemetry Resuscitation Status FULL RESUSCITATION VTE Prophylaxis Given or contraindicated: SCD's
[2017-03-21] MEDS ORDERED: ALUMINUM/MAGNESIUM/SIMETH (MAALOX MAX) 30 ML UDC PO PRN (11:45)
[2017-03-21] MEDS ORDERED: ACETAMINOPHEN 325 MG TAB PO PRN (11:45)
[2017-03-21] MEDS ORDERED: CLONIDINE HCL 0.1 MG TAB PO PRN (11:45)
[2017-03-21] MEDS ORDERED: POLYETHYLENE (MIRALAX) 17 GM PACK PO PRN (11:45)
[2017-03-21] MEDS ORDERED: ONDANSETRON INJ 2 MG/ML 2 ML VIAL IV PRN (11:45)
[2017-03-21] MEDS ORDERED: MAGNESIUM HYDROXIDE SUSP 30 ML UDC PO PRN (11:45)
[2017-03-21] MEDS ORDERED: MoRPHine SULFATE 2 MG/ML CARP IV PRN (11:45)
[2017-03-21 11:56] VITALS: Ht 160 cm; Wt 58.3 kg
[2017-03-21] MEDS ORDERED: SODIUM CHLORIDE 0.9% 500ML 500 ML IV SCH (12:15)
[2017-03-21 12:24] LABS: URINE APPEARANCE CLOUDY (CLEAR); URINE BILIRUBIN NEG (NEG); URINE COLOR YELLOW; URINE EPITHELIAL CELL AUTO 0-5 /lpf (0-5); URINE NITRITE NEG (NEG); URINE SPECIFIC GRAVITY 1.015 (1.000-1.030); UROBILINOGEN NEG (NEG)
[2017-03-21 12:27] LABS: MANUAL MICROSCOPIC REQUIRED? NO; REVIEW REQ? NO
[2017-03-21 12:40] VITALS: O2SAT 100
[2017-03-21 13:13] VITALS: BP 159/71; PULSE 72; O2SAT 100
[2017-03-21] MEDS ORDERED: IV FLUIDS COMPLETED PRN (13:45)
[2017-03-21 15:03] VITALS: BP 131/67; PULSE 73; TEMP 36.6; O2SAT 98
[2017-03-21] MEDS: SODIUM CHLORIDE 1 GM TAB PO SCH ×2 (15:26→21:04)
[2017-03-21] MEDS: CEFTRIAXONE SOD INJ 1 GM in DEXTROSE 5% ADD-VANTAGE 50ML 50 ML IV SCH (17:59)
[2017-03-21 19:58] VITALS: BP 151/73; PULSE 74; TEMP 36.8; O2SAT 96
[2017-03-21] MEDS: METOPROLOL TARTRATE 25 MG TAB PO SCH (21:04)
[2017-03-21] MEDS: PANTOprazole SOD 40 MG TAB PO SCH (21:04)
[2017-03-22] VITALS (8 sets, daily range): BP systolic 137–187; BP diastolic 67–93; PULSE 61–71; TEMP 36.5–37; O2SAT 94–96
[2017-03-22 06:06] LABS: BASO % 0.6 %; BASO ABS # 0.05 K/uL (0-0.2); EOS % 2.7 %; HEMATOCRIT 37.6 % (37-47); IG% 0.4 %; LYMPH % 18.9 %; LYMPH ABS # 1.55 K/uL (1.2-3.4); MEAN CELL VOLUME 83.4 fL (80-100); MEAN CORPUSCULAR HEMOGLOBIN 27.9 pg (25-34); MEAN PLATELET VOLUME 10.5 fL (7.4-10.4); MONO % 14.9 %; NEUT % 62.5 %; PLATELET COUNT 247 K/uL (130-400); RED BLOOD COUNT 4.51 M/uL (4.2-5.4)
[2017-03-22 06:13] LABS: COMPLETE YES; MEAN CORPUSCULAR HGB CONC 33.5 g/dl (32-36)
[2017-03-22 06:49] LABS: CALCIUM 9.8 mg/dl (8.5-10.1); CREATININE 0.85 mg/dl (0.60-1.20); MAGNESIUM 1.9 mg/dl (1.8-2.4)
[2017-03-22] MEDS: SODIUM CHLORIDE 1 GM TAB PO SCH ×2 (07:24→14:07)
[2017-03-22] MEDS: PANTOprazole SOD 40 MG TAB PO SCH (07:24)
[2017-03-22] MEDS: METOPROLOL TARTRATE 25 MG TAB PO SCH (07:24)
--- NOTE | 2017-03-22 08:52 | DIAGNOSTIC IMAGING REPORT ---
CHEST ONE VIEW PORTABLE CLINICAL HISTORY: Shortness of breath. Atrial fibrillation with a rapid ventricular response. COMPARISON STUDY: 03/21/2017 FINDINGS: The cardiac and mediastinal contours remain stable. Prominence of the right paratracheal soft tissues likely represents ectatic great vessels. There are postsurgical changes of a midline sternotomy. There is no focal pulmonary consolidation. There is no failure. No pleural effusions are visualized. IMPRESSION: No active disease in the chest. Electronically signed by: Clay Rivas M.D. 03/22/2017 8:51 AM Dictated Date/Time: 03/22/2017 8:50 AM
[2017-03-22] MEDS ORDERED: DOCUSATE SODIUM 100 MG CAP PO SCH (09:00)
[2017-03-22] MEDS ORDERED: LEVOTHYROXINE 150 MCG TAB PO SCH (09:00)
[2017-03-22] MEDS ORDERED: SENNA 8.6 MG TAB PO SCH (09:00)
[2017-03-22] MEDS ORDERED: ASPIRIN 81 MG ECTAB PO SCH (09:00)
[2017-03-22] MEDS ORDERED: AMIODARONE 200 MG TAB PO ONE (11:00)
[2017-03-22] MEDS: ARTIFICIAL TEARS OP SOLN OP SCH ×4 (12:10→14:58)
--- NOTE | 2017-03-22 12:31 | CARDIOLOGY CONSULTATION ---
DATE OF CONSULTATION: 03/22/2017 PERTINENT HISTORY: Mrs. Celestin is an 86-year-old white female with a complex past medical history, who was admitted yesterday with atrial fibrillation and rapid ventricular response. This consultation was ordered to assist in her cardiac management. Of note, the patient follows with Dr. Adrian in the outpatient setting. The patient was in her usual state of health until yesterday when she began to complain of dizziness. She was assessed by a nurse at her personal correction, who noted her to be tachycardic. She was transferred to the Emergency Room for further care. On arrival here, it was noted that she was in atrial fibrillation with rapid ventricular response. She was given diltiazem and eventually converted to sinus rhythm. The patient was diagnosed with paroxysmal atrial fibrillation back in January 2005, when she had an episode of atrial fibrillation following her right carotid endarterectomy. The patient is not a candidate for long-term anticoagulation therapy as she had a significant upper GI bleed in August of this year that was secondary to esophagitis. She also sustained a fall in October of this year, which resulted in a subdural hematoma. The patient also carries a history of coronary artery disease. She underwent an NOONAN to the LAD, jumping to the diagonal branch in November 1999. The cardiac catheterization performed in June 2010 resulted in placement of 2 bare-metal stents in the right coronary artery. Her NOONAN was patent at that time. Currently, the patient is resting comfortably in bed without complaints. PAST MEDICAL HISTORY: 1. Coronary artery bypass surgery -- NOONAN to LAD and first diagonal branch - November 1999. 2. Coronary artery disease -- cardiac catheterization in June 2010 noted a patent NOONAN, 10%-30% diffuse circumflex disease, 30% ostial right coronary stenosis, 80% proximal right coronary stenosis, and 40% left main stenosis. 3. Proximal RCA bare metal stent -- Integrity 3.5 x 18. 4. Mid RCA bare metal stent -- Integrity -- 3.5 x 9 mm. 5. Hypertension. 6. Left ventricular hypertrophy. 7. Paroxysmal atrial fibrillation. 8. Hypercholesterolemia. 9. Cerebrovascular disease -- less than 50% bilateral stenoses - July 2015. 10. Right carotid endarterectomy - January 2005. 11. Upper gastrointestinal bleed - August 2016 -- reflux esophagitis. 12. History of orthostatic hypotension. 13. Hypothyroidism. 14. Chronic anemia. 15. Osteopenia. 16. History of cerebrovascular accident. 17. Hip fracture - October 2016. 18. Subdural hematoma - October 2016. MEDICATIONS: 1. Metoprolol 12.5 mg b.i.d. 2. Aspirin 81 mg b.i.d. 3. Protonix 40 mg per day. 4. Ceftriaxone 1 gram IV daily. ALLERGIES: 1. PENICILLIN. 2. ZETIA. 3. VYTORIN. 4. LIPITOR. SOCIAL HISTORY: The patient is a . She lives in a personal correction. Does not use tobacco or alcohol. FAMILY HISTORY: No early coronary artery disease. REVIEW OF SYSTEMS: A 10-point review of systems is negative except for that described above. PHYSICAL EXAMINATION: GENERAL: This is a well-developed and well-nourished elderly white female, lying supine in bed without complaints. VITAL SIGNS: Blood pressure is 160/90 with a regular pulse of 65. Respiratory rate is 20. The patient is afebrile at 36.6 degrees Celsius. Saturation is 96% on room air. HEENT: Negative. NECK: Supple with full carotid upstrokes. There are no carotid bruits. Jugular venous pressure is flat at 90 degrees. There is no thyromegaly. CARDIOVASCULAR: Reveals a regular rhythm with a 1/6 basal systolic ejection murmur. No S3 or S4 noted. LUNGS: Clear without rales, rhonchi, or wheezes. ABDOMEN: Soft and nontender without bruits. EXTREMITIES: Reveal intact radial artery and posterior tibial pulses bilaterally. There is no peripheral edema. LABORATORY DATA: CBC notes a hemoglobin of 12.6, hematocrit 37.6, white count 8.2, and platelet count 247,000. Electrolytes note a sodium of 135, potassium 4.0, chloride 101, bicarb 27, BUN 17, creatinine 0.85, and glucose 101. Troponin I level was 0.068 on presentation with followup values of 0.103 and 0.068. CK is 14 with an MB fraction of 1.3. BNP was elevated at 3847. TSH is low at 0.136. Initial EKG shows atrial fibrillation with rapid ventricular response and anterolateral ST abnormality. Second tracing notes sinus rhythm with a left atrial abnormality and evidence of left ventricular hypertrophy. Chest x-ray shows no acute disease. IMPRESSION: Mrs. Celestin was admitted with a paroxysm of her known atrial fibrillation. She had a rapid ventricular response and did have an elevation of her troponin. Discussed with Dr. Gaines the possibility of starting amiodarone to hopefully maintain sinus rhythm. She is not a candidate for long-term anticoagulation due to her recent upper GI bleed and her subdural hematoma as described above. The patient and her daughter (a registered nurse) are in agreement. PLAN: 1. Discontinue metoprolol as this cause orthostatic hypotension in the past. 2. Start amiodarone 200 mg b.i.d. x3-4 weeks, then reduce to 200 mg daily. 3. Continue all other medications. 4. Agree with adjustment of Synthroid. 5. Further recommendations depending on her clinical course.
[2017-03-22] MEDS ORDERED: CRD200 PO (15:39)
[2017-03-22] MEDS ORDERED: LEVO137T3 PO (15:39)
[2017-03-22] MEDS ORDERED: CEPH500C PO (15:39)
--- NOTE | 2017-03-22 16:09 | Discharge Instructions ---
Discharge Instructions Date of Service Mar 22, 2017. Admission Reason for Admission: Atrial Fibrillation With Rapid Ventricular Response Discharge Discharge Diagnosis / Problem: atrial fibrillation - resolved, back in normal rhythm; question of UTI Discharge Goals Goal(s): Learn about illness, Diagnostic testing, Therapeutic intervention Activity Recommendations Activity Level: Assistance Required Therapies: Physical Therapy, Occupational Therapy . Additional Information Patient informed of condition: Yes Advance Directives: Yes DNR: No Level of Care: Skilled Communicable Disease: No Prognosis: Stable Oxygen at (LPM): none Stanton Catheter: No Instructions / Follow-Up Instructions / Follow-Up 1. Atrial fibrillation - Please do the following - * START amiodarone 200mg twice daily for 4 weeks, then reduce to once daily thereafter * start the amiodarone TONIGHT on 03/22/17 * STOP the metoprolol * SEE Dr. Adrian from [facility] within 1 week 2. Hypothyroidism - * your TSH was modestly low at 0.136 suggesting you may be taking too much thyroid medication * please REDUCE your synthroid to 137mcg once daily * you will need a repeat TSH (thyroid level) in 6 weeks 3. Question of UTI - * please START cephalexin 500mg twice daily for 4 days * begin this TONIGHT on 03/22/17 4. Follow-up - * see medical device of [facility] within 48 hours * see Dr. Adrian within 1 week from [facility] Current Hospital Diet Patient's current hospital diet: AHA Diet (Heart Healthy) Discharge Diet Recommended Diet: AHA Diet (Heart Healthy) Procedures Procedures Performed: chest x-ray - normal; no pneumonia or CHF. Pending Studies Studies pending at discharge: no Physician Orders On Transfer Special Precautions: fall precautions Vital Signs: daily, with orthostatic blood pressures lying systolic blood pressures up to 180-190 are acceptable as she has severe orthostatic hypotension. please do not treat lying systolic readings as this will worsen her orthostatic hypotension. her sitting and standing blood pressures are most important. please report her sitting and standing blood pressure values to the medical device as needed. Weigh: daily Additional Orders: patient needs a repeat TSH (thyroid level) in 6 weeks as her synthroid medication was changed during this admission POLST Discussion: Not Applicable Medical Emergencies . Who to Call and When: Medical Emergencies: If at any time you feel your situation is an emergency, please call 911 immediately. . Non-Emergent Contact Non-Emergency issues call your: Primary Care Provider (medical device of SNF) Call Non-Emergent contact if: temperature is above 100.5, you have any medication questions . . "Provider Documentation" section prepared by Kvng Gaines. . Core Measure Problem Core Measures: None
[2017-03-22] MEDS: CEFTRIAXONE SOD INJ 1 GM in DEXTROSE 5% ADD-VANTAGE 50ML 50 ML IV SCH (16:30)
--- NOTE | 2017-03-22 17:32 | Discharge Summary ---
Discharge Summary Date of Service Mar 22, 2017. Discharge Summary Admission Date: Mar 21, 2017 at 11:45 Discharge Date: Mar 22, 2017 Discharge Disposition: alf facility ([facility]) Principal Diagnosis: atrial fibrillation with RVR - resolved Problems/Secondary Diagnoses: 1) CAD s/p 2 vessel CABG in 1999 followed by 2 stents to the right coronary artery in 2010 2) Carotid stenosis 3) Hypothyroidism 4) Hypertension 5) Paroxysmal A. fib 6) History of CVA without residual deficits 7) GERD w/ esophagitis 8) Chronic constipation 9) CKD stage 3 10) +troponin - likely myocardial demand ischemia in the setting of rapid a. fib 11) Left hip fracture and subdural hematoma following a fall 11/15 - treated in [facility] in [place] 12) Upper GI bleed 09/15 - esophagitis noted on EGD - ASA ad Plavix were discontinued since that time 13) Question of UTI Immunizations: Have You Had Influenza Vaccine: Yes History of Tetanus Vaccine?: Yes History of Pneumococcal: Yes History of Hepatitis B Vaccine: No Procedures: chest x-ray X 2 without focal infiltrates Consultations: cardiology - Apollo Ramos MD PT Medication Reconciliation New Medications: Cephalexin Monohydrate (Keflex) 500 Mg Cap 500 MG PO BID for 4 Days, #8 CAP 0 Refills start evening of 03/22/17 Amiodarone HCl (Amiodarone HCl) 200 Mg Tab 200 MG PO DIRECTED, #60 TAB 2 Refills 200mg PO BID x 4 weeks, then 200mg PO once daily thereafter. Changed Medications: Levothyroxine Sodium (Levothyroxine Sodium) 137 Mcg Tab 1 TAB PO DAILY for 30 Days, #30 TAB 5 Refills (Changed from: Levothyroxine Sodium (Synthroid) 150 Mcg Tab 150 Mcg PO QAM) Continued Medications: Acetaminophen (Tylenol) 325 Mg Tab 650 MG PO Q6 PRN for Fever, TAB Acetaminophen (Tylenol) 325 Mg Tab 650 MG PO Q6 PRN for MILD PAIN, TAB Benzocaine-Menthol (Mouth-Thro (Cepacol Sore Throat) 1 Adri Adri 1 ADRI PO EVERY 2 HOURS PRN for DRY THROAT/SORE THROAT Docusate Sodium (Stool Softener) 100 Mg Cap 100 MG PO QAM Magnesium Hydroxide (Milk of Magnesia 400 mg/5Ml) 1 Marie Marie 30 ML PO EVERY 48 HOURS PRN for Constipation Metronidazole (Topical) (Metronidazole) 1 % Gel 1 APPLN TOP DAILY Pantoprazole (Protonix) 40 Mg Tab 40 MG PO BID, #30 TAB Polyvinyl Alcohol (Liquitears) 1.4 % Annika 1 DROP OPB QID PRN for DRYNESS/IRRITATION Sennosides (Senexon) 8.6 Mg Tab 8.6 MG PO QAM Sodium Chloride (Sodium Chloride) 1 Gm Tab 2 GM PO TID Sodium Phosphate/Biphosphate (Fleet Enema) Ynes 1 EA MN EVERY 72 HOURS PRN for Constipation, BTL Discontinued Medications: Clonidine Hcl (Catapres) 0.1 Mg Tab 0.1 MG PO DAILY PRN for SBP > 180 STANDING for 90 Days, #90 TAB 3 Refills Ferrous Sulfate (Kp Ferrous Sulfate) 325 Mg Tab 325 MG PO QAM for 30 Days, #30 TAB 3 Refills Referrals At Discharge Follow up Referrals: Psychologist [employer] Referral - Within 1 Week with Daryl Adrian M.D. Discharge Exam Physical Exam: General Appearance: no apparent distress ENT: pharynx normal Neck: no JVD Respiratory/Chest: lungs clear, no respiratory distress, no accessory muscle use Cardiovascular: regular rate, rhythm, no gallop, no murmur, normal peripheral pulses Abdomen / GI: normal bowel sounds, non tender, soft, no organomegaly Extremities: no pedal edema Neurologic/Psychiatric: alert Hospital Course HISTORY OF PRESENT ILLNESS: 86yo female with history of CAD, HTN, hyperlipidemia, chronic dizziness due to orthostasis, hypothyroidism, PA, GI bleed 09/15 and SDH in 11/15 who presented from [facility] with a chief complaint of dizziness. Denie CP, SOB, N/V, dysuria or fevers - admitted to generalized weakness. The pt herself had not intended to attend the hospital, however, she was examined by nursing staff and noted to be tachycardic. There were also reports of unilateral weakness, although we could not confirm this, and she was symptom free at the time of admission. On arrival to the ER she was in rapid a. fib with an initial rate of 150BPM. She was started on diltiazem infusion. HOSPITAL COURSE: Even before reaching the telemetry unit the patient converted back to NSR in the emergency department. She was subsequently observed on monitors for well over 24 hours. She remained in NSR for the rest of her stay. Serial troponins revealed a modest elevation (0.1 at peak) likely due to myocardial demand ischemia in the setting of her rapid a. fib. She was seen by Dr. Apollo Ramos, cardiology, who recommended amiodarone to maintain normal sinus rhythm as she was quite symptomatic from the PAF and has had multiple other episodes of PAF in the past. Thus, she was started on 200mg BID for 4 weeks with a recommendation to go down to 200mg once daily thereafter. Although her CHADS score is high she has multiple risk factors for adverse events on anticoagulation including recent GI bleeding in 2017 as well as a subdural hematoma in 2017. Thus, anticoagulation was deferred at this time. She previously took low-dose metoprolol for hypertension but in light of severe orthostasis tendencies this was discontinued. Other issues addressed - 1. hypothyroidism - TSH was suppressed and thus her synthroid dose was reduced from 150mcg to 137mcg daily. She will need a repeat TSH in 6 weeks. 2. orthostatic hypotension - it is recommended that her lying/supine systolic BPs not be treated. She tends to have supine SBPs in the 180-190 range. If these are treated her orthostasis will worsen. Her sitting and standing BPs will be most helpful for determining optimal BP control. In the end cardiology recommends a considerable amount of permissiveness in her blood pressures. 3. ?UTI - the patient received a dose of IV rocephin due to a urinalysis concerning for UTI. However, urine culture was not sent prior to antibiotic administration. As a precautionary measure the patient will discharge on 4 more days of antibiotic (keflex) for possible UTI. The patient was seen by physical therapy during her brief stay and did fairly well from a functional standpoint. She will return to [facility]) at [facility] at discharge. Total Time Spent: Greater than 30 minutes This includes examination of the patient, discharge planning, medication reconciliation, and communication with other providers. Discharge Instructions Please refer to the electronic Patient Visit Report (Discharge Instructions) for additional information. Follow-Up 1. see medical record librarians teacher of [facility] or PCP within [address] Daryl Adrian, [facility], within 1 week Additional Copies To Kamlesh Ramos M.D.; Hitesh Felix; Kamlesh Mcduffie M.D.; Jason Tadeo M.D.; Daryl Adrian M.D.
[2017-03-22] MEDS ORDERED: AMIODARONE 200 MG TAB PO SCH (21:00)
== END 2017-03-22 17:38 | disposition home or self-care (01) ==
LOC: EDBD 09:25 → C.EDA 09:26 → C.2E 11:45 → ENRESERV 12:31
PROVIDERS: ADMIT Internal Medicine; ATTEND Internal Medicine
DX: I48.0 Paroxysmal atrial fibrillation (principal); I95.1 Orthostatic hypotension; N39.0 Urinary tract infection, site not specified; I25.10 Atherosclerotic heart disease of native coronary artery without angina pectoris; I25.2 Old myocardial infarction; I65.29 Occlusion and stenosis of unspecified carotid artery; I12.9 Hypertensive chronic kidney disease with stage 1 through stage 4 chronic kidney disease, or unspecified chronic kidney disease; N18.3 Chronic kidney disease, stage 3 (moderate); D64.9 Anemia, unspecified; K21.9 Gastro-esophageal reflux disease without esophagitis; K59.09 Other constipation; E03.9 Hypothyroidism, unspecified; Z86.73 Personal history of transient ischemic attack (TIA), and cerebral infarction without residual deficits; Z95.1 Presence of aortocoronary bypass graft; Z79.899 Other long term (current) drug therapy

== ENCOUNTER → 2017-04-20 | Outpatient (CLI) | payer OTHER ==
[~2017-04-20] MED LIST changes: +ACET-1311 PO; +BENZ10LO2 PO; +CEPH500C PO; -CHOL1000 PO; +CRD200 PO; -CRFUDL PO; -FERR1TAB13 PO; -LEVO125T72 PO; +LEVO137T3 PO; +MAGNSUS73 PO; +METR0.7536 TOP; -MIDODRINE PO; -MOML PO; -MULT-506 PO; -NITR0.4S UT; +PANT40TA PO; -POLY335019 PO; +POLY99.02 OPB; +SENN8.6T9 PO; +SODI1TAB PO; +SODIENE PR
[2017-04-20 08:40] LABS: BLOOD UREA NITROGEN 15 mg/dl (7-18); BUN/CREATININE RATIO 15.7 (10-20); CALCIUM 8.8 mg/dl (8.5-10.1); CARBON DIOXIDE 29 mmol/L (21-32); CHLORIDE 99 mmol/L (98-107); CREATININE 0.93 mg/dl (0.60-1.20); GLUCOSE 94 mg/dl (70-99); SODIUM 134 mmol/L (136-145)
== END | disposition home or self-care (01) ==
LOC: C.LABFOXAE 08:08
PROVIDERS: ATTEND Internal Medicine
DX: N18.3 Chronic kidney disease, stage 3 (moderate) (principal)

== ENCOUNTER → 2017-05-04 | Outpatient (CLI) | payer OTHER ==
[2017-05-04 08:40] LABS: HEMATOCRIT 38.4 % (37-47); MEAN CELL VOLUME 85.5 fL (80-100); MEAN CORPUSCULAR HEMOGLOBIN 28.7 pg (25-34); MEAN CORPUSCULAR HGB CONC 33.6 g/dl (32-36); MEAN PLATELET VOLUME 10.1 fL (7.4-10.4); PLATELET COUNT 317 K/uL (130-400); RED BLOOD COUNT 4.49 M/uL (4.2-5.4); WHITE BLOOD COUNT 8.35 K/uL (4.8-10.8)
[2017-05-04 08:54] LABS: BLOOD UREA NITROGEN 13 mg/dl (7-18); BUN/CREATININE RATIO 14.6 (10-20); CALCIUM 8.7 mg/dl (8.5-10.1); CARBON DIOXIDE 25 mmol/L (21-32); CHLORIDE 99 mmol/L (98-107); CREATININE 0.89 mg/dl (0.60-1.20); GLUCOSE 88 mg/dl (70-99); SODIUM 132 mmol/L (136-145)
== END | disposition home or self-care (01) ==
LOC: C.LABFOXAE 08:00
PROVIDERS: ATTEND Internal Medicine
DX: I10 Essential (primary) hypertension (principal)

== ENCOUNTER → 2017-05-08 | Outpatient (CLI) | payer OTHER ==
[2017-05-08 10:07] LABS: BLOOD UREA NITROGEN 15 mg/dl (7-18); BUN/CREATININE RATIO 16.7 (10-20); CALCIUM 8.6 mg/dl (8.5-10.1); CARBON DIOXIDE 29 mmol/L (21-32); CHLORIDE 98 mmol/L (98-107); CREATININE 0.88 mg/dl (0.60-1.20); GLUCOSE 92 mg/dl (70-99); POTASSIUM 3.9 mmol/L (3.5-5.1); SODIUM 131 mmol/L (136-145)
== END | disposition home or self-care (01) ==
LOC: C.LABFOXAE 09:14
PROVIDERS: ATTEND Internal Medicine Hospice and Palliative Medicine
DX: E87.1 Hypo-osmolality and hyponatremia (principal)

== ENCOUNTER → 2017-05-30 | Outpatient (CLI) | payer OTHER | END | disposition home or self-care (01) | LOC: C.LABFOXAE 12:01 | PROVIDERS: ATTEND Internal Medicine Hospice and Palliative Medicine | DX: R41.82 Altered mental status, unspecified (principal) ==

== ENCOUNTER → 2017-06-09 | Outpatient (CLI) | payer OTHER ==
[2017-06-09 10:24] LABS: BLOOD UREA NITROGEN 12 mg/dl (7-18); CALCIUM 8.9 mg/dl (8.5-10.1); CARBON DIOXIDE 27 mmol/L (21-32); CREATININE 0.87 mg/dl (0.60-1.20); GLUCOSE 91 mg/dl (70-99); SODIUM 134 mmol/L (136-145)
== END | disposition home or self-care (01) ==
LOC: C.LABFOXAE 09:18
PROVIDERS: ATTEND Internal Medicine
DX: E87.1 Hypo-osmolality and hyponatremia (principal)

== ENCOUNTER 2017-06-14 21:05 | Emergency (ER) | payer OTHER ==
[~2017-06-14] VITALS: Ht 162.6 cm; Wt 67.4 kg
[2017-06-14 21:16] VITALS: TEMP 36.7; Ht 162.6 cm; Wt 67.4 kg
--- NOTE | 2017-06-14 21:21 | EMERGENCY ROOM VISIT NOTE ---
History Report prepared by [place]: Ed Persaud Under the Supervision of: Dr. Kamlesh Stevens D.O. First contact with patient: 21:08 Stated Complaint: UNRESPONSIVE History of Present Illness This HPI is limited due to the altered mental status of the patient. The patient is an 87 year old female who presents to the Emergency Room via [facility] secondary to an altered mental status. Per [facility] nursing staff the patient was observed behaving at baseline at 1830, 3.5 hours prior to arrival. The patient went completely unresponsive before EMS arrived. She has a history of hyponatremia and subdural hematoma. Source of History: patient Onset: 3.5 hours IRRIGATOR HEAD Position: other (AMS) Quality: other (AMS) Review of Systems ROS Limited due the the AMS of the patient. Past Medical & Surgical Medical Problems: (1) Acid reflux (2) Anemia (3) Coronary artery disease (4) Dizziness (5) Dizzy (6) Facial trauma (7) Fall (8) Gastrointestinal bleed (9) Headache (10) HTN (hypertension) (11) Hypertension (12) Hypertensive urgency (13) Hypothyroidism (14) Myocardial infarction (15) Vertigo (16) Weakness Surgical Problems: (1) Hx of CABG Family History Cancer Heart disease Social History Smoking Status: Never Smoker Alcohol Use: none Drug Use: none Marital Status: Housing Status: lives alone Occupation Status: retired Current/Historical Medications Scheduled Amiodarone HCl (Amiodarone HCl), 200 MG PO DIRECTED Cephalexin Monohydrate (Keflex), 500 MG PO BID Docusate Sodium (Stool Softener), 100 MG PO QAM Levothyroxine Sodium (Levothyroxine Sodium), 1 TAB PO DAILY Metronidazole (Topical) (Metronidazole), 1 APPLN TOP DAILY Pantoprazole (Protonix), 40 MG PO BID Sennosides ([place]), 8.6 MG PO QAM Sodium Chloride (Sodium Chloride), 2 GM PO TID Scheduled PRN Acetaminophen (Tylenol), 650 MG PO Q6 PRN for Fever Acetaminophen (Tylenol), 650 MG PO Q6 PRN for MILD PAIN Benzocaine-Menthol (Mouth-Thro (Cepacol Sore Throat), 1 TODD PO EVERY 2 HOURS PRN for DRY THROAT/SORE THROAT Magnesium Hydroxide (Milk of Magnesia 400 mg/5Ml), 30 ML PO EVERY 48 HOURS PRN for Constipation Polyvinyl Alcohol (Liquitears), 1 DROP OPB QID PRN for DRYNESS/IRRITATION Sodium Phosphate/Biphosphate (Fleet Enema), 1 EA [place] EVERY 72 HOURS PRN for Constipation Allergies Coded Allergies: Morphine (Verified Allergy, Mild, Itching, 09/19/16) and erythema at site of injection Penicillins (Verified Allergy, Unknown, 09/19/16) Atorvastatin (Verified Adverse Reaction, Unknown, 09/19/16) Ezetimibe (Verified Adverse Reaction, Unknown, 09/19/16) Physical Exam Vital Signs Date Time Temp Pulse Resp B/P (MAP) Pulse Ox O2 Delivery O2 Flow Rate FiO2 06/15/17 01:06 67 20 183/84 96 Room Air 06/15/17 00:36 76 16 122/70 98 Room Air 06/14/17 22:44 78 18 172/81 96 Room Air 06/14/17 21:30 59 06/14/17 21:23 95 Room Air 06/14/17 21:16 95 Room Air 06/14/17 21:16 36.7 59 18 183/78 95 Room Air Physical Exam GENERAL: Patient is listless, responds to loud verbal commands. Does not appear to be in pain. EYES: The conjunctivae are clear. The pupils are round and reactive. EARS, NOSE, MOUTH AND THROAT: The nose is without any evidence of any deformity. Mucous membranes are moist tongue is midline NECK: The neck is nontender and supple. RESPIRATORY: Normal respiratory effort is noted there is no evidence of wheezing rhonchi or rales CARDIOVASCULAR: Regular rate and rhythm noted there no murmurs rubs or gallops normal S1 normal S2 GASTROINTESTINAL: The abdomen is soft. Bowel sounds are present in all quadrants. Abdomen is nontender PELVIS: The Pelvis is stable. No tenderness to palpation is noted. BACK: No midline tenderness or or step-off noted range of motion in flexion extension as well as rotation no signs of muscle spasm noted MUSCULOSKELETAL/EXTREMITIES: There is trace pedal edema bilaterally. There is no evidence of gross deformity full range of motion is noted in the hips and shoulders SKIN: There is no obvious evidence of any rash. There are no petechiae, pallor or cyanosis noted. NEUROLOGIC: Patient is awake oriented to person, place, and situation.Strength is symmetric but diminished. Medical Decision & Procedures ER Provider Diagnostic Interpretation: Radiology results as stated below per my review and radiologist interpretation: CHEST ONE VIEW PORTABLE HISTORY: EVALUATE ALTERED MENTAL STATUS/WEAKNESS COMPARISON: Chest 03/22/2017. FINDINGS: No pleural effusions. No pneumothorax. The patient is slightly rotated on this study. The heart remains borderline enlarged. Poststernotomy changes. Interstitial thickening which is likely chronic. This remains unchanged. No evidence for pulmonary edema. No new focal lung consolidations to suggest pneumonia. IMPRESSION: No significant change compared to the prior study. No acute process. Electronically signed by: Mahin Tiwari M.D. 06/14/2017 10:05 PM Dictated Date/Time: 06/14/2017 10:[address]AST CT DOSE: 614.27 mGy.cm HISTORY: EVALUATE ALTERED MENTAL STATUS/WEAKNESS TECHNIQUE: Multiaxial CT images of the head were performed without the use of intravenous contrast. Automated exposure control was utilized for this study. A dose lowering technique was utilized adhering to the principles of ALARA. Comparison: None. Findings: The paranasal sinuses and mastoid air cells are clear. The calvarium and skull base are intact. There is no mass, hematoma, midline shift, acute infarct. White matter hypodensity is nonspecific but suggestive of microvascular ischemic change. The ventricles and sulci demonstrate mild age-related involutional changes. Mild motion artifact. 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 Impression: No acute intracranial abnormality. Atrophy and microvascular ischemic changes. Electronically signed by: Mahin Tiwari M.D. 06/14/2017 10:28 PM Dictated Date/Time: 06/14/2017 10:24 PM Laboratory Results 06/14/17 21:30 Red Blood Count 4.53, Mean Corpuscular Volume 85.9, Mean Corpuscular Hemoglobin 28.9, Mean Corpuscular Hemoglobin Concent 33.7, Mean Platelet Volume 10.2, Neutrophils (%) (Auto) 50.6, Lymphocytes (%) (Auto) 26.9, Monocytes (%) (Auto) 16.4, Eosinophils (%) (Auto) 3.9, Basophils (%) (Auto) 1.3, Neutrophils # (Auto ) 4.06, Lymphocytes # (Auto) 2.15, Monocytes # (Auto) 1.31, Eosinophils # (Auto ) 0.31, Basophils # (Auto) 0.10 06/14/17 21:30 Test 06/14/17 21:26 06/14/17 21:30 06/14/17 22:50 Bedside Glucose 86 mg/dl (70-90) White Blood Count 8.00 K/uL (4.8-10.8) Red Blood Count 4.53 M/uL (4.2-5.4) Hemoglobin 13.1 g/dL (12.0-16.0) Hematocrit 38.9 % (37-47) Mean Corpuscular Volume 85.9 fL (80-100) Mean Corpuscular Hemoglobin 28.9 pg (25-34) Mean Corpuscular Hemoglobin Concent 33.7 g/dl (32-36) Platelet Count 252 K/uL (130-400) Mean Platelet Volume 10.2 fL (7.4-10.4) Neutrophils (%) (Auto) 50.6 % Lymphocytes (%) (Auto) 26.9 % Monocytes (%) (Auto) 16.4 % Eosinophils (%) (Auto) 3.9 % Basophils (%) (Auto) 1.3 % Neutrophils # (Auto) 4.06 K/uL (1.4-6.5) Lymphocytes # (Auto) 2.15 K/uL (1.2-3.4) Monocytes # (Auto) 1.31 K/uL (0.11-0.59) Eosinophils # (Auto) 0.31 K/uL (0-0.5) Basophils # (Auto) 0.10 K/uL (0-0.2) RDW Standard Deviation 51.8 fL (36.4-46.3) RDW Coefficient of Variation 16.6 % (11.5-14.5) Immature Granulocyte % (Auto) 0.9 % Immature Granulocyte # (Auto) 0.07 K/uL (0.00-0.02) Prothrombin Time 10.7 SECONDS (9.0-12.0) Prothromb Time International Ratio 1.0 (0.9-1.1) Activated Partial Thromboplast Time 28.0 SECONDS (21.0-31.0) Partial Thromboplastin Ratio 1.1 Anion Gap 6.0 mmol/L (3-11) Est Creatinine Clear Calc Drug Dose 46.5 ml/min Estimated GFR () 75.1 Estimated GFR (Non- 64.8 BUN/Creatinine Ratio 18.9 (10-20) Calcium Level 8.8 mg/dl (8.5-10.1) Phosphorus Level 2.7 mg/dl (2.5-4.9) Magnesium Level 2.3 mg/dl (1.8-2.4) Total Bilirubin 0.4 mg/dl (0.2-1) Direct Bilirubin 0.1 mg/dl (0-0.2) Aspartate Amino Transf (AST/SGOT) 13 U/L (15-37) Alanine Aminotransferase (ALT/SGPT) 15 U/L (12-78) Alkaline Phosphatase 113 U/L (45-117) Total Creatine Kinase 11 U/L (26-192) Creatine Kinase MB 1.0 ng/ml (0.5-3.6) Creatine Kinase MB Ratio 9.1 (0-3.0) Troponin I < 0.015 ng/ml (0-0.045) Total Protein 6.2 gm/dl (6.4-8.2) Albumin 2.6 gm/dl (3.4-5.0) Thyroid Stimulating Hormone (TSH) 2.440 uIu/ml (0.300-4.500) Urine Color YELLOW Urine Appearance CLEAR (CLEAR) Urine pH 7.5 (4.5-7.5) Urine Specific [place] 1.013 (1.000-1.030) Urine Protein NEG (NEG) Urine Glucose (UA) NEG (NEG) Urine Ketones NEG (NEG) Urine Occult Blood NEG (NEG) Urine Nitrite NEG (NEG) Urine Bilirubin NEG (NEG) Urine Urobilinogen NEG (NEG) Urine Leukocyte Esterase NEG (NEG) Urine WBC (Auto) 1-5 /hpf (0-5) Urine RBC (Auto) 0-4 /hpf (0-4) Urine Hyaline Casts (Auto) 0 /lpf (0-5) Urine Epithelial Cells (Auto) 0-5 /lpf (0-5) Urine Bacteria (Auto) NEG (NEG) Laboratory results per my review. ECG Indication: altered mental status Rate (beats per minute): 58 Rhythm: sinus bradycardia Findings: no acute ischemic change, no ectopy Comparison ECG Date: 03/22/2017 Change: no significant change ED Course 2111: The patient was evaluated in room B9. A complete history and physical examination were performed. 2319: I spoke with the patient's daughter at this time. She reports that the patient is at baseline. The patient is ready to be discharged home. Medical Decision Differential diagnosis: Etiologies such as metabolic, infection, hypoglycemia, electrolyte abnormalities , cardiac sources, intracerebral event, toxicologic, neurologic, as well as others were entertained. Nursing notes reviewed. The patient is an 87-year-old female who presented to the emergency department for an episode of altered mental status. There was no witnessed seizure. The patient is a history of a brain bleeding the past. She appeared to be at her baseline mental status when her daughter came to the emergency department. I discussed the patient's laboratory and radiographic studies with the patient and her daughter. She was able to be discharged to home. I did tell the daughter to discuss the possibility with her family doctor that this could represent a seizure and if another episode occurs she may need further workup. They were also encouraged to return the emergency Department immediately symptoms change worsen or the need arises. Blood Pressure Screening Patient's blood pressure: Elevated blood pressure Blood pressure disposition: Elevated BP felt to be situational Impression Primary Impression: Altered mental status Scribe Attestation The scribe's documentation has been prepared under my direction and personally reviewed by me in its entirety. I confirm that the note above accurately reflects all work, treatment, procedures, and medical decision making performed by me. Departure Information Dispostion Home / Self-Care Referrals Hitesh Felix (PCP) Forms HOME CARE DOCUMENTATION FORM, IMPORTANT VISIT INFORMATION Patient Instructions My [facility] Additional Instructions Continue all medications as prescribed. Follow-up with your family this week. Discussed the possibility that you may require further studies such as an EEG to further evaluate the cause of the episode that occurred this evening. Return to the emergency department immediately if symptoms change worsen or the need arises. Problem Qualifiers Primary Impression: Altered mental status Altered mental status type: unspecified Qualified Codes: R41.82 - Altered mental status, unspecified
[2017-06-14 21:23] VITALS: O2SAT 95
[2017-06-14 21:51] LABS: BASO % 1.3 %; EOS % 3.9 %; EOS ABS # 0.31 K/uL (0-0.5); HEMATOCRIT 38.9 % (37-47); HEMOGLOBIN 13.1 g/dL (12.0-16.0); IG# 0.07 K/uL (0.00-0.02); LYMPH % 26.9 %; LYMPH ABS # 2.15 K/uL (1.2-3.4); MEAN CELL VOLUME 85.9 fL (80-100); MEAN CORPUSCULAR HEMOGLOBIN 28.9 pg (25-34); MEAN CORPUSCULAR HGB CONC 33.7 g/dl (32-36); MEAN PLATELET VOLUME 10.2 fL (7.4-10.4); MONO % 16.4 %; MONO ABS # 1.31 K/uL (0.11-0.59); NEUT % 50.6 %; NEUT ABS # 4.06 K/uL (1.4-6.5); PLATELET COUNT 252 K/uL (130-400); RED CELL DISTRIBUTION WIDTH CV 16.6 % (11.5-14.5); RED CELL DISTRIBUTION WIDTH SD 51.8 fL (36.4-46.3)
--- NOTE | 2017-06-14 22:06 | DIAGNOSTIC IMAGING REPORT ---
CHEST ONE VIEW PORTABLE HISTORY: EVALUATE ALTERED MENTAL STATUS/WEAKNESS COMPARISON: Chest 03/22/2017. FINDINGS: No pleural effusions. No pneumothorax. The patient is slightly rotated on this study. The heart remains borderline enlarged. Poststernotomy changes. Interstitial thickening which is likely chronic. This remains unchanged. No evidence for pulmonary edema. No new focal lung consolidations to suggest pneumonia. IMPRESSION: No significant change compared to the prior study. No acute process. Electronically signed by: Mahin Tiwari M.D. 06/14/2017 10:05 PM Dictated Date/Time: 06/14/2017 10:04 PM
[2017-06-14 22:10] LABS: ALBUMIN 2.6 gm/dl (3.4-5.0); ALT/SGPT 15 U/L (12-78); BLOOD UREA NITROGEN 16 mg/dl (7-18); CALCIUM 8.8 mg/dl (8.5-10.1); CARBON DIOXIDE 26 mmol/L (21-32); CREATININE 0.82 mg/dl (0.60-1.20); GLUCOSE 98 mg/dl (70-99); POTASSIUM 4.4 mmol/L (3.5-5.1); SODIUM 134 mmol/L (136-145)
[2017-06-14 22:18] LABS: ALKALINE PHOSPHATASE 113 U/L (45-117); AST/SGOT 13 U/L (15-37); PHOSPHORUS 2.7 mg/dl (2.5-4.9); TOTAL PROTEIN 6.2 gm/dl (6.4-8.2)
--- NOTE | 2017-06-14 22:29 | DIAGNOSTIC IMAGING REPORT ---
HEAD CT NONCONTRAST CT DOSE: 614.27 mGy.cm HISTORY: EVALUATE ALTERED MENTAL STATUS/WEAKNESS TECHNIQUE: Multiaxial CT images of the head were performed without the use of intravenous contrast. Automated exposure control was utilized for this study. A dose lowering technique was utilized adhering to the principles of ALARA. Comparison: None. Findings: The paranasal sinuses and mastoid air cells are clear. The calvarium and skull base are intact. There is no mass, hematoma, midline shift, acute infarct. White matter hypodensity is nonspecific but suggestive of microvascular ischemic change. The ventricles and sulci demonstrate mild age-related involutional changes. Mild motion artifact. 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 Impression: No acute intracranial abnormality. Atrophy and microvascular ischemic changes. Electronically signed by: Mahin Tiwari M.D. 06/14/2017 10:28 PM Dictated Date/Time: 06/14/2017 10:24 PM
[2017-06-15 01:06] VITALS: BP 183/84; PULSE 67; O2SAT 96
== END 2017-06-15 01:11 | disposition home or self-care (01) ==
LOC: EDBD 21:05 → C.EDB 21:07
DX: R41.82 Altered mental status, unspecified (principal); I25.10 Atherosclerotic heart disease of native coronary artery without angina pectoris; I10 Essential (primary) hypertension; E03.9 Hypothyroidism, unspecified; I25.2 Old myocardial infarction; Z91.81 History of falling; Z79.899 Other long term (current) drug therapy

== ENCOUNTER → 2017-06-16 | Outpatient (CLI) | payer OTHER ==
[2017-06-16 10:48] LABS: HEMOGLOBIN 13.9 g/dL (12.0-16.0); MEAN CELL VOLUME 87.3 fL (80-100); MEAN CORPUSCULAR HEMOGLOBIN 28.9 pg (25-34); MEAN CORPUSCULAR HGB CONC 33.1 g/dl (32-36); MEAN PLATELET VOLUME 10.8 fL (7.4-10.4); PLATELET COUNT 281 K/uL (130-400); RED CELL DISTRIBUTION WIDTH CV 16.9 % (11.5-14.5); RED CELL DISTRIBUTION WIDTH SD 53.6 fL (36.4-46.3); WHITE BLOOD COUNT 8.89 K/uL (4.8-10.8)
[2017-06-16 10:57] LABS: BLOOD UREA NITROGEN 17 mg/dl (7-18); CALCIUM 9.1 mg/dl (8.5-10.1); CARBON DIOXIDE 27 mmol/L (21-32); CREATININE 0.87 mg/dl (0.60-1.20); GLUCOSE 100 mg/dl (70-99); SODIUM 136 mmol/L (136-145)
== END ==
LOC: C.LABFOXAE 09:09
PROVIDERS: ATTEND Internal Medicine
DX: R53.83 Other fatigue (principal)

== ENCOUNTER → 2017-06-24 | Outpatient (CLI) | payer OTHER | END | disposition home or self-care (01) | LOC: C.LABFOXAE 18:03 | PROVIDERS: ATTEND Internal Medicine | DX: R41.82 Altered mental status, unspecified (principal) ==

== ENCOUNTER → 2017-09-04 | Outpatient (CLI) | payer OTHER ==
[2017-09-04 14:53] LABS: BLOOD UREA NITROGEN 24 mg/dl (7-18); CALCIUM 8.7 mg/dl (8.5-10.1); CARBON DIOXIDE 23 mmol/L (21-32); CREATININE 1.01 mg/dl (0.60-1.20); GLUCOSE 179 mg/dl (70-99); SODIUM 134 mmol/L (136-145)
== END | disposition home or self-care (01) ==
LOC: C.LABFOXAE 13:43
PROVIDERS: ATTEND Nurse Practitioner Family
DX: R41.82 Altered mental status, unspecified (principal)

== ENCOUNTER → 2017-09-09 | Outpatient (CLI) | payer OTHER ==
[2017-09-09 08:21] LABS: BLOOD UREA NITROGEN 16 mg/dl (7-18); CALCIUM 9.3 mg/dl (8.5-10.1); CARBON DIOXIDE 24 mmol/L (21-32); CREATININE 0.83 mg/dl (0.60-1.20); GLUCOSE 102 mg/dl (70-99); SODIUM 130 mmol/L (136-145)
== END | disposition home or self-care (01) ==
LOC: C.LABFOXAE 07:51
PROVIDERS: ATTEND Internal Medicine
DX: E87.1 Hypo-osmolality and hyponatremia (principal); R11.2 Nausea with vomiting, unspecified

== ENCOUNTER → 2017-09-10 | Outpatient (CLI) | payer OTHER ==
[2017-09-10 10:02] LABS: HEMATOCRIT 43.3 % (37-47); HEMOGLOBIN 14.2 g/dL (12.0-16.0); MEAN CELL VOLUME 88.2 fL (80-100); MEAN CORPUSCULAR HEMOGLOBIN 28.9 pg (25-34); MEAN CORPUSCULAR HGB CONC 32.8 g/dl (32-36); MEAN PLATELET VOLUME 10.4 fL (7.4-10.4); PLATELET COUNT 375 K/uL (130-400); RED CELL DISTRIBUTION WIDTH CV 15.9 % (11.5-14.5); RED CELL DISTRIBUTION WIDTH SD 50.8 fL (36.4-46.3); WHITE BLOOD COUNT 9.42 K/uL (4.8-10.8)
== END ==
LOC: C.LABFOXAE 09:10
PROVIDERS: ATTEND Internal Medicine
DX: E87.1 Hypo-osmolality and hyponatremia (principal); R11.0 Nausea

== ENCOUNTER → 2017-09-21 | Outpatient (CLI) | payer OTHER ==
[2017-09-21 08:34] LABS: ALBUMIN 2.7 gm/dl (3.4-5.0); ALT/SGPT 19 U/L (12-78); AST/SGOT 14 U/L (15-37); BLOOD UREA NITROGEN 19 mg/dl (7-18); CALCIUM 8.8 mg/dl (8.5-10.1); CARBON DIOXIDE 26 mmol/L (21-32); CREATININE 0.88 mg/dl (0.60-1.20); GLUCOSE 97 mg/dl (70-99); POTASSIUM 3.8 mmol/L (3.5-5.1); SODIUM 137 mmol/L (136-145)
[2017-09-21 08:44] LABS: ALKALINE PHOSPHATASE 107 U/L (45-117); TOTAL PROTEIN 6.7 gm/dl (6.4-8.2)
[2017-09-21 09:24] LABS: HEMATOCRIT 40.1 % (37-47); HEMOGLOBIN 13.6 g/dL (12.0-16.0); MEAN CELL VOLUME 88.1 fL (80-100); MEAN CORPUSCULAR HEMOGLOBIN 29.9 pg (25-34); MEAN CORPUSCULAR HGB CONC 33.9 g/dl (32-36); MEAN PLATELET VOLUME 10.8 fL (7.4-10.4); PLATELET COUNT 310 K/uL (130-400); RED CELL DISTRIBUTION WIDTH CV 15.6 % (11.5-14.5); RED CELL DISTRIBUTION WIDTH SD 50.2 fL (36.4-46.3)
== END | disposition home or self-care (01) ==
LOC: C.LABFOXAE 08:14
PROVIDERS: ATTEND Internal Medicine
DX: I10 Essential (primary) hypertension (principal); E03.9 Hypothyroidism, unspecified; D64.9 Anemia, unspecified

== ENCOUNTER → 2017-09-29 | Outpatient (CLI) | payer OTHER ==
[2017-09-29 09:34] LABS: BASO % 0.4 %; BASO ABS # 0.03 K/uL (0-0.2); EOS ABS # 0.16 K/uL (0-0.5); HEMATOCRIT 37.8 % (37-47); HEMOGLOBIN 12.5 g/dL (12.0-16.0); IG# 0.04 K/uL (0.00-0.02); LYMPH % 20.2 %; MEAN CELL VOLUME 87.9 fL (80-100); MEAN CORPUSCULAR HEMOGLOBIN 29.1 pg (25-34); MEAN CORPUSCULAR HGB CONC 33.1 g/dl (32-36); MEAN PLATELET VOLUME 10.8 fL (7.4-10.4); MONO % 14.5 %; MONO ABS # 1.15 K/uL (0.11-0.59); NEUT % 62.4 %; NEUT ABS # 4.94 K/uL (1.4-6.5); PLATELET COUNT 243 K/uL (130-400); RED CELL DISTRIBUTION WIDTH CV 15.9 % (11.5-14.5); RED CELL DISTRIBUTION WIDTH SD 50.7 fL (36.4-46.3); WHITE BLOOD COUNT 7.92 K/uL (4.8-10.8)
[2017-09-29 09:44] LABS: BLOOD UREA NITROGEN 29 mg/dl (7-18); CALCIUM 8.7 mg/dl (8.5-10.1); CARBON DIOXIDE 26 mmol/L (21-32); CREATININE 1.11 mg/dl (0.60-1.20); GLUCOSE 99 mg/dl (70-99); POTASSIUM 3.9 mmol/L (3.5-5.1); SODIUM 136 mmol/L (136-145)
== END | disposition home or self-care (01) ==
LOC: C.LABFOXAE 09:15
PROVIDERS: ATTEND Internal Medicine
DX: R55 Syncope and collapse (principal)

== ENCOUNTER → 2017-09-30 | Outpatient (CLI) | payer OTHER | END | disposition home or self-care (01) | LOC: C.LABFOXAE 08:53 | PROVIDERS: ATTEND Internal Medicine | DX: S62.91XA Unspecified fracture of right hand, initial encounter for closed fracture (principal); X58.XXXA Exposure to other specified factors, initial encounter ==

== ENCOUNTER → 2017-10-07 | Outpatient (CLI) | payer OTHER ==
[2017-10-07 08:06] LABS: HEMATOCRIT 39.9 % (37-47); HEMOGLOBIN 13.3 g/dL (12.0-16.0); MEAN CELL VOLUME 88.1 fL (80-100); MEAN CORPUSCULAR HEMOGLOBIN 29.4 pg (25-34); MEAN CORPUSCULAR HGB CONC 33.3 g/dl (32-36); MEAN PLATELET VOLUME 10.3 fL (7.4-10.4); PLATELET COUNT 310 K/uL (130-400); RED CELL DISTRIBUTION WIDTH CV 15.8 % (11.5-14.5); RED CELL DISTRIBUTION WIDTH SD 50.3 fL (36.4-46.3); WHITE BLOOD COUNT 8.06 K/uL (4.8-10.8)
[2017-10-07 08:13] LABS: BLOOD UREA NITROGEN 21 mg/dl (7-18); CARBON DIOXIDE 29 mmol/L (21-32); CREATININE 0.86 mg/dl (0.60-1.20); GLUCOSE 98 mg/dl (70-99); POTASSIUM 3.9 mmol/L (3.5-5.1); SODIUM 135 mmol/L (136-145)
== END ==
LOC: C.LABFOXAE 07:53
PROVIDERS: ATTEND Internal Medicine
DX: R53.1 Weakness (principal)

== ENCOUNTER → 2017-12-29 | Outpatient (CLI) | payer OTHER ==
[2017-12-29 10:08] LABS: BASO % 0.9 %; BASO ABS # 0.08 K/uL (0-0.2); EOS ABS # 0.19 K/uL (0-0.5); HEMATOCRIT 39.4 % (37-47); HEMOGLOBIN 12.7 g/dL (12.0-16.0); IG# 0.03 K/uL (0.00-0.02); LYMPH % 19.5 %; LYMPH ABS # 1.81 K/uL (1.2-3.4); MEAN CELL VOLUME 91.4 fL (80-100); MEAN CORPUSCULAR HEMOGLOBIN 29.5 pg (25-34); MEAN CORPUSCULAR HGB CONC 32.2 g/dl (32-36); MEAN PLATELET VOLUME 11.2 fL (7.4-10.4); NEUT % 63.3 %; NEUT ABS # 5.87 K/uL (1.4-6.5); PLATELET COUNT 252 K/uL (130-400); RED CELL DISTRIBUTION WIDTH CV 15.7 % (11.5-14.5); RED CELL DISTRIBUTION WIDTH SD 52.6 fL (36.4-46.3); WHITE BLOOD COUNT 9.28 K/uL (4.8-10.8)
[2017-12-29 10:17] LABS: BLOOD UREA NITROGEN 21 mg/dl (7-18); CALCIUM 8.8 mg/dl (8.5-10.1); CARBON DIOXIDE 27 mmol/L (21-32); GLUCOSE 91 mg/dl (70-99); POTASSIUM 3.7 mmol/L (3.5-5.1); SODIUM 139 mmol/L (136-145)
== END ==
LOC: C.LABFOXAE 08:17
PROVIDERS: ATTEND Internal Medicine
DX: R53.83 Other fatigue (principal)